=== PATIENT | female | born 1985 | race Caucasian/White ===

== ENCOUNTER 2019-09-27 08:26 | Emergency (ER) | payer MEDICAID, SELFPAY ==
[2019-09-27 08:28] VITALS: BP 111/88; PULSE 92; RESP 16; TEMP 36.8; O2SAT 100; BMI 27.3
[2019-09-27 08:45] VITALS: PULSE 86; RESP 16; O2SAT 99
--- NOTE | 2019-09-27 08:45 | XR_ITS ---
WS: [id number] RIGHT ANKLE: 3 VIEW(S) TECHNIQUE: AP, oblique(s) and lateral. HISTORY: medial aspect pain COMPARISON: None available. Normal anatomic alignment with no fracture or dislocation. No joint effusion or widening of the ankle mortise. No significant degenerative changes at the joint spaces. No soft tissue abnormality. XR/XR ankle RT min 3V* [id number] IMPRESSION: Normal RIGHT ankle.
--- NOTE | 2019-09-27 08:45 | ED_ITS ---
HPI - Extremity Problem General: Chief complaint: Extremity Problem,Nontraumatic Stated complaint: Right leg pain Time Seen by Provider: 09/27/19 08:40 History of Present Illness: HPI Narrative: Patient complains about right ankle pain for the last 3 days. Patient does walk on a treadmill. Patient denies any injury that she is aware of. Does complain about pain in her right leg from the calf up to the mid thigh at times. Does complain of some swelling around her right ankle MD Complaint: extremity pain, extremity swelling and joint paint Onset (ago): day(s) (3) Pain Consistency: constant Location: right Severity scale (1-10): 4 Quality: aching Radiation: proximal Exacerbating factors: range of motion, weight bearing, walking and exertion Associated symptoms: Deny chest pain, fever(s) or rash Review of Systems Const: Denies: fever, chills or body aches Eyes: Denies: change in vision or blurry vision ENMT: Denies: throat pain or nasal congestion Card: Denies: chest pain or shortness of breath on exertion Resp: Denies: shortness of breath, productive cough or non-productive cough GI: Denies: abdominal pain, nausea or vomiting Musc: Reports: extremity pain, extremity swelling and joint pain Skin/Breast: Denies: rash Neuro: Denies: headache Psych: Denies: anxiety or depression Billy/Lymph: Denies: easy bruising PFSH ED PFSH: Statuses (acute, chronic, etc) shown below reflect problem list status as previously entered and may not be historically accurate Medical History (Updated 09/17/19 @ 15:43 by Lilian Macedo RN) Hypertension (Acute) Patient denies medical problems (Acute) Denies diabetes, asthma, seizures, DVT/PE Surgical History (Updated 09/17/19 @ 16:02 by Lilian Macedo RN) History of delivery (Acute ~06/06/13) delivery at [place] for placental abruption History of cholecystectomy (Acute ~2012) Done at time of exploratory laparoscopy for ruptured gastric ulcer in History of exploratory laparotomy (Acute ~2012) Done for ruptured gastric ulcer - also had a cholecystectomy at the same time Family History (Updated 09/17/19 @ 16:03 by Lilian Macedo RN) Grandfather Diabetes Paternal Mother Hypertension Unknown Patient denies medical problems Denies history of: Breast, cervical, uterine, ovarian, colon cancer, DVT/PE Social History (Updated 09/17/19 @ 16:05 by Lilian Macedo RN) Smoking and tobacco status: current every day smoker cigarettes Packs smoked per day: 0.5 [ Other cigarette details: Started smoking at age 19 ] Alcohol intake: current Female Reproductive History: Date of last menstrual period: 09/06/19 Physical Exam Const: COMMON NORMALS: no apparent distress, average body habitus and oriented x3 HENMT: COMMON NORMALS: normocephalic HEAD & SCALP: normal to inspection and normocephalic FACE & SINUS: normal facial exam Eye: COMMON NORMALS: conjunctivae normal GENERAL EYE: normal appearance of both eyes CONJUNCTIVA: Yes conjunctivae normal Neck/C-Spine: COMMON NORMALS: no JVD Chest: COMMONS NORMALS: inspection of chest normal Resp: COMMON NORMALS: normal respiratory effort and clear to auscultation bilaterally AUSCULTATION: clear to auscultation bilaterally Cardio: COMMON NORMALS: no JVD, regular rate and regular rhythm RATE: regular rate RHYTHM: regular rhythm GI: COMMON NORMALS: normal to inspection, nondistended, normoactive bowel sounds Extremity: COMMON NORMALS: normal to inspection and full ROM RIGHT LOWER EXTREMITY: Yes ankle joint (Tenderness to the right medial aspect of the ankle. Does have mild swelling. Does have good range of motion. No swelling redness erythema up the leg.) Neuro: COMMON NORMALS: oriented x3 Course Vital Signs: Vital signs: Vital Signs Temperature 98.2 F 09/27/19 08:28 Pulse Rate 92 09/27/19 08:28 Respiratory Rate 16 09/27/19 08:28 Blood Pressure 111/88 09/27/19 08:28 Pulse Oximetry 100 09/27/19 08:28 Discharge Plan Discharge Prescriptions: No Action venlafaxine [Effexor XR] 37.5 mg capsule,extended release 24hr 37.5 mg PO QDAY RF: 0 Coding Level of Care Code ED Plunger Machine Operator for Chg Reji
== END 2019-09-27 09:11 | disposition home or self-care (01) ==
PROVIDERS: Emergency Provider Nurse Practitioner Family; Family Provider Family Medicine; PCP Family Medicine
DX: M79.604 Pain in right leg (principal); I10 Essential (primary) hypertension; F17.210 Nicotine dependence, cigarettes, uncomplicated
CPT/HCPCS: 73610; 99281; 99282

== ENCOUNTER → 2019-10-01 15:00 | Outpatient (BNVA) | payer MEDICAID, SELFPAY | PROVIDERS: Family Provider Family Medicine; PCP Family Medicine; Visit Provider Psychiatry & Neurology Psychiatry | DX: F33.2 Major depressive disorder, recurrent severe without psychotic features (principal); F41.1 Generalized anxiety disorder; F15.20 Other stimulant dependence, uncomplicated; F11.20 Opioid dependence, uncomplicated | CPT/HCPCS: 99204 ==

== ENCOUNTER → 2020-02-28 18:25 | Outpatient (BNVA) | payer MEDICAID, SELFPAY | PROVIDERS: Family Provider Family Medicine; PCP Family Medicine; Visit Provider Nurse Practitioner Family | DX: J06.9 Acute upper respiratory infection, unspecified (principal); Z68.27 Body mass index [BMI] 27.0-27.9, adult; F17.210 Nicotine dependence, cigarettes, uncomplicated; Z71.89 Other specified counseling | CPT/HCPCS: 87071; 87880 ==

== ENCOUNTER 2020-05-02 08:57 | Emergency (ER) | payer MEDICAID, SELFPAY ==
[2020-05-02 09:00] VITALS: BP 123/85; PULSE 85; RESP 18; TEMP 36.9; O2SAT 96; BMI 28.3
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
[2020-05-02 09:39] LABS: HCG Qualitative Urine. Negative (Negative)
[2020-05-02 09:53] LABS: Basophils # 0.1 10^3/uL (0.0-0.1); Basophils % 1.3 %; Eosinophils # 0.4 10^3/uL (0.0-0.8); Eosinophils % 3.9 %; Hematocrit 39.2 % (37.0-47.0); Lymphocytes # 2.2 10^3/uL (0.8-4.8); Mean Corpuscular HGB Conc 33.2 g/dL (30.0-36.0); Mean Corpuscular Volume 90.3 fL (81-99); Mean Platelet Volume 9.1 fL (7.4-10.4); Monocytes # 0.8 10^3/uL (0.2-0.9); Monocytes % 8.6 %; Neutrophils # 5.76 10^3/uL (1.8-7.7); Neutrophils % 61.9 %; Nucleated Red Blood Cells % 0 %; Platelet Count 345 10^3/cmm (130-400); Red Blood Count 4.34 10^6/uL (4.1-5.3); White Blood Count 9.3 10^3/uL (4.0-10.0)
[2020-05-02 09:58] LABS: Add Urine Microscopic? YES; Bilirubin Urine Neg (Negative); Blood Urine Neg (Negative); Glucose Urine UA Norm (Normal); Ketones Urine Negative (Negative); Leukocyte Esterase Urine 2+ (Negative); Nitrate Urine Negative (Negative); Protein Urine Neg (Negative); Specific Gravity, Urine 1.015 (1.005-1.030); Urine Appearance SL Hazy (CLEAR); Urine Color Yellow (Yellow); Urobilinogen Urine Norm (Negative)
[2020-05-02 10:06] LABS: Add Urine Culture? No; Bacteria Urine 2+ /hpf; Mucus Urine 1+ /hpf; RBC Urine 0-4 /hpf (0-2); Squamous Epithelial Cell Urine 15-25 /hpf (0-5); WBC Urine 25-40 /hpf (0-5)
[2020-05-02 10:07] LABS: Amphetamines Screen Urine Negative (Negative); Barbiturates Screen Urine Negative (Negative); Benzodiazepines Screen Urine Positive (Negative); Cocaine Screen Urine Negative (Negative); Opiate Screen Urine Negative (Negative); PCP Screen Urine Negative (Negative); THC Screen Urine Negative (Negative)
[2020-05-02 10:13] LABS: Alanine Aminotransferase 14 U/L (0-33); Albumin Level 3.7 g/dL (3.5-5.2); Alkaline Phosphatase 69 IU/L (35-105); Anion Gap 11.9 (5-19); Aspartate Amino Transferase 8 U/L (0-32); Blood Urea Nitrogen 12 mg/dL (6-20); Calcium 9.5 mg/dL (8.5-10.5); Carbon Dioxide 25 mmol/L (22-29); Chloride 106 mmol/L (98-107); Creatinine Clr Calc Pharmacy 88.2588; Globulin 3.1 g/dL (1.3-4.6); Glomerular Filtration Rate 82.6 mL/min (90-130); Glucose 106 mg/dL (65-115); Osmolality Calculated 285 mOsm/kg (285-295); Potassium 3.9 mmol/L (3.5-5.1); Sodium 139 mmol/L (136-145); Total Bilirubin 0.2 mg/dL (0.15-1.2); Total Protein 6.8 g/dL (6.6-8.7)
[2020-05-02 10:14] LABS: Acetaminophen < 5.0 ug/mL (10-30); Alcohol Level < 10 mg/dL (0-10); Salicylate < 0.3 mg/dL (3-10)
[2020-05-02 12:00] VITALS: BP 130/87; PULSE 71; RESP 18; TEMP 36.6; O2SAT 99
[2020-05-02 12:07] VITALS: BP 130/87; PULSE 71; RESP 18; TEMP 36.6; O2SAT 99
== END 2020-05-02 12:07 | disposition home or self-care (01) ==
PROVIDERS: Emergency Provider Family Medicine; PCP Family Medicine
DX: F32.9 Major depressive disorder, single episode, unspecified (principal); F31.9 Bipolar disorder, unspecified; I10 Essential (primary) hypertension; F17.210 Nicotine dependence, cigarettes, uncomplicated
CPT/HCPCS: 12345; 36415; 80053; 80306; 80307; 81001; 81025; 85025; 99284

== ENCOUNTER 2020-07-28 07:35 | Emergency (ER) | payer MEDICAID, SELFPAY ==
[2020-07-28 07:38] VITALS: BP 156/107; PULSE 98; RESP 17; TEMP 36.8; O2SAT 100; BMI 28.3
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
[2020-07-28 08:25] LABS: Add Urine Culture? No; Add Urine Microscopic? YES; Bacteria Urine 2+ /hpf; Bilirubin Urine Neg (Negative); Blood Urine Trace (Negative); Glucose Urine UA Norm (Normal); Ketones Urine Negative (Negative); Leukocyte Esterase Urine 2+ (Negative); Mucus Urine 1+ /hpf; Nitrate Urine Negative (Negative); Protein Urine Neg (Negative); Specific Gravity, Urine 1.015 (1.005-1.030); Squamous Epithelial Cell Urine 25-40 /hpf (0-5); Urine Appearance Cloudy (CLEAR); Urine Color Yellow (Yellow); Urobilinogen Urine Norm (Negative); WBC Urine 25-40 /hpf (0-5)
[2020-07-28 08:29] LABS: Alanine Aminotransferase 14 U/L (0-33); Alkaline Phosphatase 94 IU/L (35-105); Anion Gap 12.9 (5-19); Aspartate Amino Transferase 7 U/L (0-32); Blood Urea Nitrogen 19 mg/dL (6-20); Calcium 10.1 mg/dL (8.5-10.5); Carbon Dioxide 29 mmol/L (22-29); Chloride 102 mmol/L (98-107); Globulin 3.4 g/dL (1.3-4.6); Glomerular Filtration Rate 82.1 mL/min (90-130); Glucose 73 mg/dL (65-115); Osmolality Calculated 291 mOsm/kg (285-295); Potassium 3.9 mmol/L (3.5-5.1); Sodium 140 mmol/L (136-145); Total Bilirubin 0.2 mg/dL (0.15-1.2); Total Protein 7.4 g/dL (6.6-8.7)
[2020-07-28 08:56] LABS: Basophils # 0.1 10^3/uL (0.0-0.1); Basophils % 1.2 %; Eosinophils # 0.5 10^3/uL (0.0-0.8); Eosinophils % 5.1 %; Hematocrit 41.5 % (37.0-47.0); Hemoglobin 13.4 g/dL (11.5-15.3); Lymphocytes # 2.9 10^3/uL (0.8-4.8); Lymphocytes % 29.8 %; Mean Corpuscular HGB Conc 32.3 g/dL (30.0-36.0); Mean Corpuscular Hemoglobin 29.8 pg (28.0-34.0); Mean Corpuscular Volume 92.2 fL (81-99); Mean Platelet Volume 9.2 fL (7.4-10.4); Monocytes # 0.9 10^3/uL (0.2-0.9); Monocytes % 9.5 %; Neutrophils # 5.25 10^3/uL (1.8-7.7); Nucleated Red Blood Cells % 0 %; Platelet Count 422 10^3/cmm (130-400); White Blood Count 9.7 10^3/uL (4.0-10.0)
[2020-07-28] MEDS: tetanus-dipt-pertussis 0.5 mL SDV IM (08:59)
[2020-07-28 09:10] VITALS: BP 148/95; PULSE 84; RESP 16; O2SAT 99
--- NOTE | 2020-07-28 10:41 | DCPLANNER ---
accredited farm manager had message to schedule a follow up appointment for patient with ENT. accredited farm manager emailed Erlinda at [facility] General Surgery patients information. Patients information will be printed and reviewed. Clinic will call patient with appointment information.
--- NOTE | 2020-08-01 11:19 | DCPLANNER ---
manager call center was contacted by [facility] General Surgery stating that clinic tried to call patient several times was unable to speak with patient and left voicemails were left for patient to return clinic phone calls. manager call center called phone numbers [phone] and [phone] got a recording that stated phone number can not be completed at this time. Unable to speak with patient and unable to leave a voicemail for patient.
== END 2020-07-28 09:11 | disposition home or self-care (01) ==
PROVIDERS: Emergency Provider Family Medicine; PCP Family Medicine
DX: S00.81XA Abrasion of other part of head, initial encounter (principal); H72.91 Unspecified perforation of tympanic membrane, right ear; I10 Essential (primary) hypertension; F17.210 Nicotine dependence, cigarettes, uncomplicated; Y04.2XXA Assault by strike against or bumped into by another person, initial encounter; Z23 Encounter for immunization
CPT/HCPCS: 12345; 70450; 80053; 81001; 85025; 90471; 90715; 99281; 99283

== ENCOUNTER → 2020-09-14 15:00 | Outpatient (BNVA) | payer MEDICAID, SELFPAY | PROVIDERS: PCP Family Medicine; Visit Provider Nurse Practitioner Women's Health | DX: Z01.411 Encounter for gynecological examination (general) (routine) with abnormal findings (principal) | CPT/HCPCS: 84702; 87491; 87591; 87661; 88175 ==

== ENCOUNTER 2020-11-13 21:39 | Inpatient (IN) | payer MEDICAID, SELFPAY ==
[2020-11-13 21:40] VITALS: BP 112/77; PULSE 79; RESP 18; TEMP 36.4; O2SAT 97; BMI 28.9
--- NOTE | 2020-11-13 21:50 | ED_ITS ---
HPI - Psych General: Chief Complaint: Psychiatric Symptoms Stated Complaint: SI Time Seen by Provider: 11/13/20 21:43 Source: patient and EMS Mode of arrival: EMS Limitations: altered mental status History of Present Illness: HPI Narrative: 35-year-old female that today texted friends that she was going to come to [place] and kill herself shooting herself with a gun. Patient was found intoxicated with Xanax and a gun in position. Last seen she was and was given Haldol on the way here. Patient did have a gun in her possession. Here she is sedated from Haldol and no h istory is available from her at this point. She does have a history of psychiatric illness and depression. Associated symptoms: Reports depression and suicidal ideation Review of Systems General: Reports: ROS unobtainable due to mental status Psych: Reports: depression and suicidal ideation [facility] ED PFS: Medical History (Updated 11/13/20 @ 22:42 by Shlomo Marin MD) Bartholin's gland abscess (~2018) Generalized anxiety disorder Hypertension Major depressive disorder, recurrent severe without psychotic features Opioid dependence, uncomplicated Other stimulant dependence, uncomplicated Patient denies medical problems Denies diabetes, asthma, seizures, DVT/PE Surgical History History of delivery (~06/06/13) delivery at [place] for placental abruption History of cholecystectomy (~2012) Done at time of exploratory laparoscopy for ruptured gastric ulcer in History of exploratory laparotomy (~2012) Done for ruptured gastric ulcer - also had a cholecystectomy at the same time Family History Grandfather Diabetes Paternal Mother Hypertension Heart disease Unknown No problems noted. Denies family history of Colon cancer Ovarian cancer Hypercholesteremia Breast cancer Uterine cancer Stroke Female Reproductive History: Date of last menstrual period: 04/18/20 Physical Exam Const: COMMON NORMALS: negative for patient oriented x3 EXAM LIMITATIONS: altered mental status GENERAL APPEARANCE: disheveled HENMT: COMMON NORMALS: normocephalic and atraumatic HEAD & SCALP: normocephalic and atraumatic Eye: COMMON NORMALS: Equal, round and reactive pupils present and EOMs intact bilaterally PUPIL: Yes Equal, round and reactive pupils present Neck/C-Spine: COMMON NORMALS: full ROM and supple Chest: COMMONS NORMALS: normal inspection of the chest and normal palpation of entire chest wall Resp: COMMON NORMALS: normal respiratory effort, No retractions, No use of accessory muscles and clear to auscultation bilaterally AUSCULTATION: clear to auscultation bilaterally Cardio: COMMON NORMALS: regular rate, regular rhythm and No murmurs present (Cardio) RATE: regular rate RHYTHM: regular rhythm GI: COMMON NORMALS: Normal to inspection, nondistended, normoactive bowel sounds present, Soft to palpation, non-tender and no masses PALPATION: Yes Soft to palpation Extremity: COMMON NORMALS: normal to inspection and full ROM Neuro: COMMON NORMALS: moves all extremities; negative for patient oriented x3 Psych: THOUGHT CONTENT: Yes Suicidality present Skin: COMMON NORMALS: no rashes or lesions noted and no wounds GENERAL SKIN EXAM: no rashes or lesions noted MDM - Psych MDM Narrative: Medical decision making narrative: Patient presents for suicidal ideation along with alcohol intoxication. Patient is medically cleared and spoke to Dr. Gordillo and will admit. Patient placed under 96-hour hold. Lab Data: Labs: Lab Results 11/13/20 11/13/20 Range/Units 22:05 22:05 WBC 8.3 (4.0-10.0) 10^3/ uL RBC 4.50 (4.1-5.3) 10^6/u L Hgb 13.0 (11.5-15.3) g/dL Hct 39.5 (37.0-47.0) % MCV 87.8 (81-99) fL MCH 28.9 (28.0-34.0) pg MCHC 32.9 (30.0-36.0) g/dL RDW 14.5 (12.1-15.1) % Plt Count 392 (130-400) 10^3/c mm MPV 9.2 (7.4-10.4) fL Neut % (Auto) 50.3 % Lymph % (Auto) 37.8 % [place] % (Auto) 8.2 % Eos % (Auto) 2.3 % Baso % (Auto) 1.0 % Neut # (Auto) 4.17 (1.8-7.7) 10^3/u L Lymph # (Auto) 3.1 (0.8-4.8) 10^3/u L [place] # (Auto) 0.7 (0.2-0.9) 10^3/u L Eos # (Auto) 0.2 (0.0-0.8) 10^3/u L Baso # (Auto) 0.1 (0.0-0.1) 10^3/u L Nucleated RBC % (a uto) 0 % Nucleated RBCs # 0.0 /100WBC Sodium 142 (136-145) mmol/L Potassium 3.5 (3.5-5.1) mmol/L Chloride 112 H (98-107) mmol/L Carbon Dioxide 21 L (22-29) mmol/L Anion Gap 12.5 (5-19) BUN 8 (6-20) mg/dL Creatinine 0.6 (0.5-0.9) mg/dL GFR Calculation 114.4 (90-130) mL/min Glucose 85 (65-115) mg/dL Calculated Osmolal ity 292 (285-295) mOsm/k g Calcium 8.0 L (8.5-10.5) mg/dL Total Bilirubin 0.2 (0.15-1.2) mg/dL AST 37 H (0-32) U/L ALT 155 H (0-33) U/L Alkaline Phosphata se 75 (35-105) IU/L Total Protein 7.0 (6.6-8.7) g/dL Albumin 3.6 (3.5-5.2) g/dL Globulin 3.4 (1.3-4.6) g/dL Salicylates < 0.3 L (3-10) mg/dL Acetaminophen < 5.0 L (10-30) ug/mL Ethyl Alcohol 161 H (0-10) mg/dL Discharge Plan Discharge Patient Disposition: Admitted As Inpatient Clinical Impression: Suicidal ideation Condition: Stable Coding Level of Care Code ED Injection Molding Machine Setter for Fawn Fwsonali Exam Comprehensive
[2020-11-13 22:14] LABS: Basophils # 0.1 10^3/uL (0.0-0.1); Eosinophils # 0.2 10^3/uL (0.0-0.8); Eosinophils % 2.3 %; Hematocrit 39.5 % (37.0-47.0); Lymphocytes # 3.1 10^3/uL (0.8-4.8); Lymphocytes % 37.8 %; Mean Corpuscular HGB Conc 32.9 g/dL (30.0-36.0); Mean Corpuscular Hemoglobin 28.9 pg (28.0-34.0); Mean Corpuscular Volume 87.8 fL (81-99); Mean Platelet Volume 9.2 fL (7.4-10.4); Monocytes # 0.7 10^3/uL (0.2-0.9); Monocytes % 8.2 %; Neutrophils # 4.17 10^3/uL (1.8-7.7); Neutrophils % 50.3 %; Nucleated Red Blood Cells % 0 %; Platelet Count 392 10^3/cmm (130-400); Red Cell Distribution Width 14.5 % (12.1-15.1); White Blood Count 8.3 10^3/uL (4.0-10.0)
[2020-11-13 22:16] VITALS: BP 155/104; PULSE 82; RESP 16; O2SAT 96
[2020-11-13 22:27] LABS: Albumin Level 3.6 g/dL (3.5-5.2); Alcohol Level 161 mg/dL (0-10); Alkaline Phosphatase 75 IU/L (35-105); Blood Urea Nitrogen 8 mg/dL (6-20); Carbon Dioxide 21 mmol/L (22-29); Chloride 112 mmol/L (98-107); Globulin 3.4 g/dL (1.3-4.6); Glomerular Filtration Rate 114.4 mL/min (90-130); Glucose 85 mg/dL (65-115); Osmolality Calculated 292 mOsm/kg (285-295); Sodium 142 mmol/L (136-145); Total Bilirubin 0.2 mg/dL (0.15-1.2)
[2020-11-13 22:30] LABS: Acetaminophen < 5.0 ug/mL (10-30); Salicylate < 0.3 mg/dL (3-10)
[2020-11-13 22:31] LABS: Alanine Aminotransferase 155 U/L (0-33); Anion Gap 12.5 (5-19); Aspartate Amino Transferase 37 U/L (0-32); Potassium 3.5 mmol/L (3.5-5.1)
[2020-11-13 23:25] VITALS: BP 143/104; PULSE 76; RESP 16; TEMP 36.6; O2SAT 96
[2020-11-13 23:25] LABS: Alcohol Level 160 mg/dL (0-10)
[2020-11-13 23:39] VITALS: RESP 16; TEMP 37.2
--- NOTE | 2020-11-14 03:04 | PC.NURSE ---
Involuntary admission from the ED. Transported to the ED by police. Patient had texted a friend she was going to kill herself. Drank whiskey, took Xanax, obtained a handgun. [place]. Was combative with police and EMS. Was given Haldol by EMS. Sedated upon arrival to NPU. Curled into position. Would not cooperate with vital signs or other care. Needs admit assessments completed.
--- NOTE | 2020-11-14 04:16 | PC.NURSE ---
Skin assessment revealed no wounds or injuries. The patient has acne across her upper back.
[2020-11-14 06:00] VITALS: BP 136/89; PULSE 80; RESP 16; TEMP 37.6; O2SAT 98
--- NOTE | 2020-11-14 11:30 | P.HP_ITS ---
Providers/Chief Complaint Admitting Physician: Bennett Gordillo MD Primary Care Provider: Nitza Phoenix DO Chief Complaint: SI HPI NPU History of Present Illness Clarissa Correa is a 35 year old female who presented to the emergency department following report: Chief Complaint: Psychiatric Symptoms Stated Complaint: SI Time Seen by Provider: 11/13/20 21:43 Source: patient and EMS Mode of arrival: EMS Limitations: altered mental status History of Present Illness: HPI Narrative: 35-year-old female that today texted friends that she was going to come to [place] and kill herself shooting herself with a gun. Patient was found intoxicated with Xanax and a gun in position. Last seen she was and was given Haldol on the way here. Patient did have a gun in her possession. Here she is sedated from Haldol and no history is available from her at this point. She does have a history of psychiatric illness and depression. Associated symptoms: Reports depression and suicidal ideation. She was admitted to the neuropsychiatric unit for definitive treatment of those issues. This morning she presents reporting never been in a psychiatric hospital but that she has had therapy a long time ago and that she currently is on medications through Dr. Phoenix and Francoise Adams. She is reportedly on Paxil, Xanax and Wellbutrin and reports that the medication doses are fine. She smokes a half a grams a day, reports getting alcohol occasionally, denies marijuana but was evasive in discussions about cocaine, methamphetamine or other illicit drugs eventually reporting that she does methamphetamine from time to time. She reports being in a rehab about three times and having one DUI. She reports that what got her in this situation is that her ex did not go to court. Due to him failing to go to court he is now in long-term which made her feel suicidal each. She reports that she got a gun and she got very evasive about exactly what happened but she is on a 96-hour hold secondary to concerns for safety. She agreed to talk to the social professionals and explore different options for sober living treatment but she seems somewhat ambivalent during the time of our conversation. Psychiatric history: As above. Substance abuse history: As above. Family history: She endorses mental health and addiction issues on both sides of her family but denied any suicide attempts or completions on either side. Developmental history: There were no problems with the , or delivery, learned to walk and talk and met developmental milestones on time, and denies need for speech therapy, learning support, emotional support or special education classes. Psychosocial history: Reports her mother and father were together when she was born and remain together. She endorses that she has three sisters and one brother from that [employer] and she is the oldest of the five. She endorses that her childhood was fine and she denied any emotional, physical or sexual abuse. She endorses that she graduated from high school and did get an associates degree from college. She endorses being a heterosexual and her longest relationship was 12 years. She been one time and denies having an official divorce but they are . She has three children; a thirteen avoid a and two girls ages eleven and seven. She never been in the and denies any hinduism [employer] system. Her longest job was 6 years [employer] and she endorses living in a trailer with her three kids and her cousin's girlfriend and her girlfriend's cousin's children. Legal history: She endorses being in [facility] once maybe twice but never for longer than a couple of hours. Medical history: Please see ED note for full details but she denies any significant history. Meds NPU Home Medications Medication Instructions Recorded Confirmed Last Taken Type bupropion HCl 150 mg 24 hr tablet, 150 mg PO QAM #30 tab 10/29/19 11/14/20 05/01/20 Rx extended release alprazolam 0.5 mg PO BID PRN 05/02/20 11/14/20 05/01/20 History paroxetine HCl 10 mg PO DAILY 11/14/20 11/14/20 Unknown History Allergies Allergy/AdvReac Type Severity Reaction Status Date / Time No Known Allergies Allergy Verified 09/14/20 14:24 PFS NPU PFSH: Medical History (Updated 11/14/20 @ 12:01 by Bennett Gordillo MD) Bartholin's gland abscess (~2018) Generalized anxiety disorder Hypertension Major depressive disorder, recurrent severe without psychotic features Opioid dependence, uncomplicated Other stimulant dependence, uncomplicated Patient denies medical problems Denies diabetes, asthma, seizures, DVT/PE Surgical History History of delivery (~06/06/13) delivery at [place] for placental abruption History of cholecystectomy (~2012) Done at time of exploratory laparoscopy for ruptured gastric ulcer in History of exploratory laparotomy (~2012) Done for ruptured gastric ulcer - also had a cholecystectomy at the same time Family History Grandfather Diabetes Paternal Mother Hypertension Heart disease Unknown No problems noted. Denies family history of Colon cancer Ovarian cancer Hypercholesteremia Breast cancer Uterine cancer Stroke Mental Status Exam MSE Comments: This is an overweight versus obese white female in hospital scrubs with limited grooming and eye contact. No abnormal movements except for psychomotor retardation. Semicooperative with exam in mild to moderate distress. Speech was limited and decreased rate and volume. Mood described as tired affect irritable. Thought process organized. Thought content: Patient denied suicidal or homicidal ideations, there were no delusions reported or noted, she denied any auditory visual hallucinations. Concentration were impaired and memory was limited but none were formally tested. She alert and oriented x3. Insight judgment are impaired and impulse control is impaired. Vitals/I&O/Wt Last Vital Signs Temp 99.6 F 11/14/20 06:00 Pulse 80 11/14/20 06:00 Resp 16 11/14/20 06:00 BP 136/89 11/14/20 06:00 Pulse Ox 98 11/14/20 06:00 Weight last 48 hrs Weight 69.4 kg Data NPU : 11/13/20 22:05 11/13/20 22:05 A&P Assessment and plan (1) Suicidal ideation: Status: Acute (2) Chlamydia: Status: Acute (3) Other stimulant dependence, uncomplicated: Status: Acute (4) Opioid dependence, uncomplicated: Status: Acute (5) Major depressive disorder, recurrent severe without psychotic features: Status: Acute (6) Generalized anxiety disorder: Status: Acute (7) Methamphetamine use: Status: Acute (8) Withdrawal from methamphetamine: Status: Acute (9) Partner relational problem: Status: Acute Additional A&P Information This is a 35-year-old white female with a long history of mental health and addiction issues who presents after she reports she started having difficulties with the recent imprisonment of her ex and reportedly ended up depressed with a gun and actively using drugs including alcohol. 1. Continue current medication. We will continue to review whether an increase in the Paxil or Wellbutrin would be appropriate. 2. Continue every 15 minute checks for safety. 3. Encourage individual, group and milieu therapies. 4. Encourage sober living treatment after discharge at the highest level of care to which he is willing to commit. Involuntary Hold Information 96 Hour Hold: 96 Hour Involuntary Admission: Yes 96 Hour Hold Ending Date: 11/17/20 96 Hour Hold Ending Time: 21:57 Attestations NPU 2 Medical Necessity Statement*: Inpatient hospitalization is medically necessary and the clinically appropriate intervention at this time. We will monitor medic ations and make changes as indicated. Patient will be in the hospital for over two midnights. Likely length of stay 3 to 5 days. Coding Level of Care Code Acute Bilingual Patient Support Caseworker for Fawn Fwd Diagnoses Suicidal ideation R45.851 Chlamydia A74.9 Other stimulant dependence, uncomplicated F15.20 Opioid dependence, uncomplicated F11.20 Major depressive disorder, recurrent severe without psychotic features F33.2 Generalized anxiety disorder F41.1 Methamphetamine use F15.10 Withdrawal from methamphetamine F15.23 Partner relational problem Z63.0
[2020-11-14 12:06] LABS: HCG Qualitative Urine. Negative (Negative)
[2020-11-14] MEDS: doxepin 50 mg Capsule PO (21:09)
[2020-11-14 21:13] VITALS: BP 121/82; PULSE 86; RESP 18; TEMP 37.2; O2SAT 98
--- NOTE | 2020-11-15 04:30 | PC.NURSE ---
PM ASSESSMENT PT WANTS TO BE LEFT ALONE, SHE IS RESTING, HEART/LUNG SOUNDS WNL, DENIES PAIN, DENIES SI/HI/AH/VH. WILL CONTINUE TO OBSERVE.
[2020-11-15] MEDS: buPROPion XL (24 HR) 150 mg Tablet PO (05:44)
[2020-11-15 06:00] VITALS: BP 108/72; PULSE 71; RESP 16; TEMP 36.2; O2SAT 97
[2020-11-15] MEDS: multivitamin therapeutic Tablet 1 TAB PO (08:46)
[2020-11-15] MEDS: folic acid 1 mg Tablet PO (08:47)
[2020-11-15] MEDS: PARoxetine 20 mg Tablet 10 MG PO (08:47)
[2020-11-15] MEDS: thiamine 100 mg Tablet PO (08:47)
[2020-11-15] MEDS: hyDROXYzine 25 mg Capsule 50 MG PO (13:27)
--- NOTE | 2020-11-15 13:28 | PC.NURSE ---
Addendum entered by Hui Becerril LPN 11/15/20 18:03: prn med effective no further c/o anxiety at this time Original Note: PRN VISTARIL 50 MG GIVEN PO PER PT C/O STATED ANXIETY. WILL CONT TO MONITOR
[2020-11-15] MEDS: nicotine 21 mg Patch 1 PATCH TRANSDERMA (13:55)
[2020-11-15 14:00] VITALS: BP 116/75; PULSE 76; RESP 20; TEMP 37.4; O2SAT 98
[2020-11-15] MEDS: acetaminophen 325 mg Tablet 650 MG PO (17:10)
--- NOTE | 2020-11-15 17:27 | PM.NPN ---
Subjective NPU Subjective: Interval history: Clarissa presents today being a little more interactive and less irritable with exchanges. She continues to be somewhat ambivalent about what to do next. But she ultimately agreed to exploration of the medications at the current doses. We discussed the risk-benefit and alternatives of increasing the Paxil to 20 mg p.o. every morning and she understood and agreed to proceed as is documented in this note. She also endorsed she might be open to increasing the Wellbutrin XL. We discussed our reticence to make any changes to the Xanax given her situation. Mental Status Exam MSE Comments: This is an overweight versus obese white female in hospital scrubs with limited grooming and eye contact. No abnormal movements except for psychomotor retardation. More cooperative with exam in mild distress. Speech was limited and decreased rate and volume, with some improvement. Mood described as tired affect less irritable. Thought process organized. Thought content: Patient denied suicidal or homicidal ideations, there were no delusions reported or noted, she denied any auditory or visual hallucinations. Attention and concentration were impaired, but improving and memory was limited but none were formally tested. She alert and oriented x3. Insight judgment are impaired, but improving and impulse control is impaired. Vitals/I&O/Wt Last Vital Signs Temp 98.6 F 11/15/20 22:00 Pulse 74 11/15/20 22:00 Resp 20 H 11/15/20 14:00 BP 134/89 11/15/20 22:00 Pulse Ox 98 11/15/20 14:00 Data NPU : 11/13/20 22:05 11/13/20 22:05 A&P Additional A&P Information (1) Suicidal ideation: (2) Chlamydia: (3) Other stimulant dependence, uncomplicated: (4) Opioid dependence, uncomplicated: (5) Major depressive disorder, recurrent severe without psychotic features: (6) Generalized anxiety disorder: (7) Methamphetamine use: (8) Withdrawal from methamphetamine: (9) Partner relational problem: Additional A&P Information This is a 35-year-old white female with a long history of mental health and addiction issues who presents after she reports she started having difficulties with the recent imprisonment of her ex and reportedly ended up depressed with a gun and actively using drugs including alcohol. 1. Continue current medication. Increase Paxil to 20 mg p.o. every morning 2. Continue every 15 minute checks for safety. 3. Encourage individual, group and milieu therapies. 4. Encourage sober living treatment after discharge at the highest level of care to which she is willing to commit. Involuntary Hold Information 96 Hour Hold: 96 Hour Involuntary Admission: Yes 96 Hour Hold Ending Date: 11/17/20 96 Hour Hold Ending Time: 21:57 Attestations NPU Medical Necessity Statement*: Inpatient hospitalization is medically necessary and the clinically appropriate intervention at this time. We will monitor medications and make changes as indicated. Likely length of stay 2-4 days. Coding Level of Care Code Acute Conditioning Yard Supervisor for Fawn Mendoza
[2020-11-15] MEDS: doxepin 50 mg Capsule PO (20:56)
[2020-11-15 22:00] VITALS: BP 134/89; PULSE 74; TEMP 37
[2020-11-16 05:35] VITALS: BP 124/76; PULSE 73; TEMP 37.5; O2SAT 96
[2020-11-16] MEDS: buPROPion XL (24 HR) 150 mg Tablet PO (06:28)
[2020-11-16] MEDS: PARoxetine 20 mg Tablet PO (08:42)
[2020-11-16] MEDS: multivitamin therapeutic Tablet 1 TAB PO (08:42)
[2020-11-16] MEDS: folic acid 1 mg Tablet PO (08:42)
[2020-11-16] MEDS: thiamine 100 mg Tablet PO (08:42)
[2020-11-16 13:02] VITALS: BP 117/75; PULSE 84; RESP 16; TEMP 37.6; O2SAT 97
[2020-11-16] MEDS: nicotine 21 mg Patch 1 PATCH TRANSDERMA (15:38)
--- NOTE | 2020-11-16 17:42 | PM.NPN ---
Subjective NPU Subjective: Interval history: Clarissa presents today reporting that she is feeling a little bit better and for the first time appearing that this may be the case. She continues to be resistant to significant changes in her outpatient treatment being somewhat ambivalent and seeming in denial of the significance of her situation. We discussed the risk benefits and alternatives of discharging her tomorrow as her 96-hour hold is up and she understood and agreed to proceed as is documented in this note Mental Status Exam MSE Comments: This is an overweight versus obese white female in hospital scrubs with adequate grooming and eye contact. No abnormal movements. Cooperative with exam in no acute distress. Speech was more spontaneous and more normal rate and volume. Mood described as getting better affect congruent. Thought process organized. Thought content: Patient denied suicidal or homicidal ideations, there were no delusions reported or noted, she denied any auditory or visual hallucinations. Attention and concentration were intact, and memory was more reliable but none were formally tested. She alert and oriented x3. Insight judgment are noted but improving, and impulse control is improving. Vitals/I&O/Wt Last Vital Signs Temp 99.5 F 11/16/20 21:35 Pulse 82 11/16/20 21:35 Resp 18 11/16/20 21:35 BP 146/91 11/16/20 21:35 Pulse Ox 95 11/16/20 21:35 Data NPU : 11/13/20 22:05 11/13/20 22:05 A&P Additional A&P Information (1) Suicidal ideation: (2) Chlamydia: (3) Other stimulant dependence, uncomplicated: (4) Opioid dependence, uncomplicated: (5) Major depressive disorder, recurrent severe without psychotic features: (6) Generalized anxiety disorder: (7) Methamphetamine use: (8) Withdrawal from methamphetamine: (9) Partner relational problem: Additional A&P Information This is a 35-year-old white female with a long history of mental health and addiction issues who presents after she reports she started having difficulties with the recent imprisonment of her ex and reportedly ended up depressed with a gun and actively using drugs including alcohol. 1. Continue current medication. 2. Continue every 15 minute checks for safety. 3. Encourage individual, group and milieu therapies. 4. Encourage sober living treatment after discharge at the highest level of care to which she is willing to commit. Involuntary Hold Information 96 Hour Hold: 96 Hour Involuntary Admission: Yes 96 Hour Hold Ending Date: 11/17/20 96 Hour Hold Ending Time: 21:57 Attestations NPU Medical Necessity Statement*: Inpatient hospitalization is medically necessary and the clinically appropriate intervention at this time. We will monitor medications and make changes as indicated. Discharge tomorrow. Coding Level of Care Code Acute Molasses And Caramel Operator for Fawn Mendoza
[2020-11-16 21:35] VITALS: BP 146/91; PULSE 82; RESP 18; TEMP 37.5; O2SAT 95
[2020-11-16] MEDS: hyDROXYzine 25 mg Capsule 50 MG PO (21:40)
[2020-11-16] MEDS: doxepin 50 mg Capsule PO (21:40)
[2020-11-16] MEDS: acetaminophen 325 mg Tablet 650 MG PO (21:41)
--- NOTE | 2020-11-16 21:44 | PC.NURSE ---
Patient requested Visteril 50 mg for anxiety. given.
--- NOTE | 2020-11-16 22:06 | PC.NURSE ---
Patient C/O back pain. Rated pain at a 6/10. 650mg Tylenol given.
[2020-11-17 06:00] VITALS: BP 113/75; PULSE 65; RESP 17; TEMP 36.9; O2SAT 98
[2020-11-17] MEDS: buPROPion XL (24 HR) 150 mg Tablet PO (07:19)
--- NOTE | 2020-11-17 08:20 | P.PN_ITS ---
NPU Therapy Progress Note Therapy Progress Note Date: 11/16/20 Time In: 18:50 Time Out: 19:15 Symptoms Reported: depression Mood: pleasant but guarded and appears sad Progress Note: TURNING SANDER OPERATOR was approached by NPU staff who report Clarissa requested to speak with TURNING SANDER OPERATOR. Clarissa reports ongoing struggle with addiction issues involving meth and alcohol abuse. She vents about relationship issues with her most recent relationship and also her marriage. She is still legally and eludes to much unresolved emotion and pain related to that relationship. She is wanting substance abuse treatment; however, does not present with confidence about obtaining sobriety. She puts her head down and appears to almost be tearful during much of the conversation. When a difficult topic is presented Clarissa is noted to change the subject quickly, normalizing that everyone has is bad or everyone is depressed . She eludes to self guilt and mistakes it seems she has been unable to address. Intervention: TURNING SANDER OPERATOR listened and provided empathy and support. TURNING SANDER OPERATOR and Clarissa discussed her need for substance abuse treatment and expectations of this. TURNING SANDER OPERATOR also encouraged therapy treatment with the right provider as Clarsisa discusses how she had attempted to engage in therapy in the past but didn't feel heard or understood. TURNING SANDER OPERATOR attempted to educate on how important it is that Clarissa a ddress not only the substance abuse addiction, but the cause of what helped to create the addictive behavior in the first place. Clarissa agrees she has much unresolved emotions related to many hurtful events and relationships. Reported Goals Before Discharge: get set up with substance abuse treatment before discharge
[2020-11-17] MEDS: PARoxetine 20 mg Tablet PO (08:49)
[2020-11-17] MEDS: thiamine 100 mg Tablet PO (08:49)
[2020-11-17] MEDS: multivitamin therapeutic Tablet 1 TAB PO (08:49)
[2020-11-17] MEDS: folic acid 1 mg Tablet PO (08:49)
[2020-11-17] MEDS: nicotine 21 mg Patch 1 PATCH TRANSDERMA (10:23)
[2020-11-17] MEDS: acetaminophen 325 mg Tablet 650 MG PO (10:23)
--- NOTE | 2020-11-17 11:50 | PM.NDC ---
Diagnoses at Discharge Discharge Diagnosis (1) Suicidal ideation: Status: Resolved (2) Chlamydia: Status: Resolved (3) Other stimulant dependence, uncomplicated: Status: Acute (4) Opioid dependence, uncomplicated: Status: Acute (5) Major depressive disorder, recurrent severe without psychotic features: Status: Acute (6) Generalized anxiety disorder: Status: Acute (7) Methamphetamine use: Status: Acute (8) Withdrawal from methamphetamine: Status: Resolved (9) Partner relational problem: Status: Acute Reason for Visit Reason for Visit: SI Brief History: History of Present Illness Clarissa Correa is a 35 year old female who presented to the emergency department following report: Chief Complaint: Psychiatric Symptoms Stated Complaint: SI Time Seen by Provider: 11/13/20 21:43 Source: patient and EMS Mode of arrival: EMS Limitations: altered mental status History of Present Illness: HPI Narrative: 35-year-old female that today texted friends that she was going to come to [place] and kill herself shooting herself with a gun. Patient was found intoxicated with Xanax and a gun in position. Last seen she was and was given Haldol on the way here. Patient did have a gun in her possession. Here she is sedated from Haldol and no history is available from her at this point. She does have a history of psychiatric illness and depression. Associated symptoms: Reports depression and suicidal ideation. She was admitted to the neuropsychiatric unit for definitive treatment of those issues. This morning she presents reporting never been in a psychiatric hospital but that she has had therapy a long time ago and that she currently is on medications through Dr. Phoenix and [place]. She is reportedly on Paxil, Xanax and Wellbutrin and reports that the medication doses are fine. She smokes a half a grams a day, reports getting alcohol occasionally, denies marijuana but was evasive in discussions about cocaine, methamphetamine or other illicit drugs eventually reporting that she does methamphetamine from time to time. She reports being in a rehab about three times and having one DUI. She reports that what got her in this situation is that her ex did not go to court. Due to him failing to go to court he is now in custodial which made her feel suicidal each. She reports that she got a gun and she got very evasive about exactly what happened but she is on a 96-hour hold secondary to concerns for safety. She agreed to talk to the social service agency director and explore different options for sober living treatment but she seems somewhat ambivalent during the time of our conversation. Psychiatric history: As above. Substance abuse history: As above. Family history: She endorses mental health and addiction issues on both sides of her family but denied any suicide attempts or completions on either side. Developmental history: There were no problems with the , or delivery, learned to walk and talk and met developmental milestones on time, and denies need for speech therapy, learning support, emotional support or special education classes. Psychosocial history: Reports her mother and father were together when she was born and remain together. She endorses that she has three sisters and one brother from that union and she is the oldest of the five. She endorses that her childhood was fine and she denied any emotional, physical or sexual abuse. She endorses that she graduated from high school and did get an associates degree from college. She endorses being a heterosexual and her longest relationship was 12 years. She been one time and denies having an official divorce but they are . She has three children; a thirteen avoid a and two girls ages eleven and seven. She never been in the and denies any [employer] system. Her longest job was 6 years [employer] and she endorses living in a trailer with her three kids and her cousin's girlfriend and her girlfriend's cousin's children. Legal history: She endorses being in alf once maybe twice but never for longer than a couple of hours. Medical history: Please see ED note for full details but she denies any significant history. Hospital Course Hospital Course Clarissa presented to the emergency department endorsing depression, suicidal ideation and have been found with a gun. She is admitted to the neuropsychiatric unit for definitive treatment of those issues. She had a blood alcohol level 160 upon admission. She slowly acclimated to the individual, group and milieu therapies being fairly isolative and somewhat confused and her initial interactions. We maintained her home medications and increase her Paxil to 20 mg p.o. every morning. She showed a robust response and was able to contract for safety outside the hospital. She did not have access to gun when she was discharged. During the hospitalization, patient had routine laboratory studies which were within normal limits except for few outliers. Additionally there was a general medical evaluation which was also within normal limits and revealed no new acute processes. Discharge Summary: At the time of discharge, she was absent lethality or psychosis. Mood and anxiety were well managed. Patient endorsed a plan to avoid all drugs of abuse and follow-up with the aftercare recommendations of the treatment team. Patient was evaluated and deemed to be absent credible lethality, and had achieved the maximum benefit from an inpatient hospitalization, so was discharged. Involuntary Hold Information 96 Hour Hold: 96 Hour Involuntary Admission: Yes 96 Hour Hold Ending Date: 11/17/20 96 Hour Hold Ending Time: 21:57 Mental Status Exam MSE Comments: This is an overweight versus obese white female in hospital scrubs with adequate grooming and eye contact. No abnormal movements. Cooperative with exam in no acute distress. Speech was more spontaneous and normal rate and volume. Mood described as pretty good, affect congruent. Thought process organized. Thought content: Patient denied suicidal or homicidal ideations, there were no delusions reported or noted, she denied any auditory or visual hallucinations. Attention and concentration were intact, and memory was more reliable but none were formally tested. She alert and oriented x3. Insight judgment are improving, and impulse control is improving. Discharge Data Data Completed and Pending: Pending at discharge Category Date Time Status Drug Screen, Urin e Stat Lab 11/13/20 21:43 Uncollected Vitals: Last Vital Signs Temp 98.5 F 11/17/20 06:00 Pulse 65 11/17/20 06:00 Resp 17 11/17/20 06:00 BP 113/75 11/17/20 06:00 Pulse Ox 98 11/17/20 06:00 Discharge Plan Discharge Patient Disposition: Home Condition: Stable Prescriptions: New paroxetine HCl 20 mg Tablet 20 mg PO DAILY 30 Days Qty: 30 RF: 1 Continued alprazolam 0.5 mg tablet 0.5 mg PO BID PRN (Reason: unknown) 30 Days Qty: 60 RF: 1 Wellbutrin XL 150 mg tablet extended release 24 hr 150 mg PO QAM 30 Days Qty: 30 RF: 1 Discontinued paroxetine HCl 10 mg Tablet 10 mg PO DAILY RF: 0 Discharge Orders: Discharge Order (Routine); Ordered 11/17/20 Ordered By: Bennett Gordillo Referrals: [facility] [Outside] Nitza Phoenix DO [Primary Care Provider] - 11/23/20 4:00 pm Discharge Diet: Regular Discharge Activity: Resume usual activity Patient Instructions: Paroxetine (By mouth) Discharge Attestations NPU Time Spent in Discharge Care*: less than 30 min Specific Discharge Activities: Specific discharge activities: educating patient, discussing with rn case manager/social workers/dc planners, documenting/other paperwork and evaluating patient/reviewing data Coding Level of Care Code Acute Agent Producer for [facility] Fwd Diagnoses Suicidal ideation R45.851 Chlamydia A74.9 Other stimulant dependence, uncomplicated F15.20 Opioid dependence, uncomplicated F11.20 Major depressive disorder, recurrent severe without psychotic features F33.2 Generalized anxiety disorder F41.1 Methamphetamine use F15.10 Withdrawal from methamphetamine F15.23 Partner relational problem Z63.0
[2020-11-17 11:59] VITALS: BP 113/75; PULSE 65; RESP 17; TEMP 36.9; O2SAT 98
== END 2020-11-17 12:55 | disposition home or self-care (01) | DRG 885 ==
LOC: ER 22:42 → NP 22:58
PROVIDERS: Admitting Provider Psychiatry & Neurology Psychiatry; Emergency Provider Emergency Medicine; PCP Family Medicine; Visit Provider Psychiatry & Neurology Psychiatry
DX: F33.2 Major depressive disorder, recurrent severe without psychotic features (principal); R45.851 Suicidal ideations; F15.23 Other stimulant dependence with withdrawal; F11.20 Opioid dependence, uncomplicated; F10.129 Alcohol abuse with intoxication, unspecified; Y90.9 Presence of alcohol in blood, level not specified; F41.1 Generalized anxiety disorder; I10 Essential (primary) hypertension; A74.9 Chlamydial infection, unspecified; Z63.0 Problems in relationship with spouse or partner
CPT/HCPCS: 80053; 80307; 81025; 85025; 99285

== ENCOUNTER 2020-12-19 02:03 | Inpatient (IN) | payer MEDICAID, SELFPAY ==
[2020-12-19] VITALS (11 sets, daily range): BP systolic 103–129; BP diastolic 66–97; PULSE 81–95; RESP 15–24; TEMP 36.4–37; O2SAT 93–99; BMI 29.2
[2020-12-19] MEDS: sodium chloride 0.9% 1,000 ML 999 ML IV (02:47)
[2020-12-19 02:55] LABS: Basophils # 0.1 10^3/uL (0.0-0.1); Basophils % 0.8 %; Eosinophils # 0.1 10^3/uL (0.0-0.8); Eosinophils % 1.1 %; Hematocrit 44.1 % (37.0-47.0); Hemoglobin 14.5 g/dL (11.5-15.3); Lymphocytes # 2.8 10^3/uL (0.8-4.8); Lymphocytes % 22.8 %; Mean Corpuscular HGB Conc 32.9 g/dL (30.0-36.0); Mean Corpuscular Volume 88.2 fL (81-99); Mean Platelet Volume 8.8 fL (7.4-10.4); Monocytes # 0.9 10^3/uL (0.2-0.9); Monocytes % 7.5 %; Neutrophils # 8.18 10^3/uL (1.8-7.7); Neutrophils % 67.1 %; Nucleated Red Blood Cells % 0 %; Platelet Count 400 10^3/cmm (130-400); Red Cell Distribution Width 14.7 % (12.1-15.1); White Blood Count 12.2 10^3/uL (4.0-10.0)
[2020-12-19 03:25] LABS: Alanine Aminotransferase 216 U/L (0-33); Albumin Level 4.2 g/dL (3.5-5.2); Alcohol Level 170 mg/dL (0-10); Alkaline Phosphatase 98 IU/L (35-105); Anion Gap 15.2 (5-19); Aspartate Amino Transferase 43 U/L (0-32); Blood Urea Nitrogen 11 mg/dL (6-20); Calcium 8.5 mg/dL (8.5-10.5); Carbon Dioxide 23 mmol/L (22-29); Chloride 104 mmol/L (98-107); Globulin 3.4 g/dL (1.3-4.6); Glomerular Filtration Rate 82.1 mL/min (90-130); Glucose 80 mg/dL (65-115); Osmolality Calculated 286 mOsm/kg (285-295); Potassium 3.2 mmol/L (3.5-5.1); Sodium 139 mmol/L (136-145); Thyroid Stimulating Hormone 1.03 uIU/mL (0.27-4.20); Total Bilirubin 0.3 mg/dL (0.15-1.2); Total Protein 7.6 g/dL (6.6-8.7)
[2020-12-19 03:30] LABS: Acetaminophen < 5.0 ug/mL (10-30); Salicylate < 0.3 mg/dL (3-10)
--- NOTE | 2020-12-19 04:06 | W.ED.PSYCH ---
HPI - Psych General: Chief Complaint: Psychiatric Symptoms Stated Complaint: ETOH, SI Time Seen by Provider: 12/19/20 02:20 History of Present Illness: HPI Narrative: 35-year-old female brought in by EMS. The patient had been dropped off in front of an acquaintance's house. They called 911. Patient is intoxicated. Information obtained from family members indicates that she has a history of alcohol and methamphetamine abuse. The police questioned her and she stated that she just wanted them to chop her head off. She also asked them if they could get her some heroin. The patient is able to talk but does not answer questions. When I asked her questions she would stop talking. Records indicate that she does have a history of bipolar. MD complaint: suicidal ideation (She wanted to please to chop her head off .) and altered mental status Context: recent alcohol abuse and recent drug abuse Treatments prior to arrival: none and placed on mental health hold (Due to the patient's comments to the police as well as evasiveness with regards to answer my questions we will initiate a 96-hour hold.) Review of Systems General: Reports: ROS unobtainable due to mental status Const: Reports: body aches [facility] ED PFSH: Medical History (Updated 11/18/20 @ 00:00 by ) Bartholin's gland abscess (~2018) Generalized anxiety disorder Hypertension Major depressive disorder, recurrent severe without psychotic features Opioid dependence, uncomplicated Other stimulant dependence, uncomplicated Patient denies medical problems Denies diabetes, asthma, seizures, DVT/PE Surgical History History of delivery (~06/06/13) delivery at [facility] for placental abruption History of cholecystectomy (~2012) Done at time of exploratory laparoscopy for ruptured gastric ulcer in History of exploratory laparotomy (~2012) Done for ruptured gastric ulcer - also had a cholecystectomy at the same time Family History Grandfather Diabetes Paternal Mother Hypertension Heart disease Unknown No problems noted. Denies family history of Colon cancer Ovarian cancer Hypercholesteremia Breast cancer Uterine cancer Stroke Female Reproductive History: Date of last menstrual period: 04/18/20 Physical Exam Const: COMMON NORMALS: no acute distress and well nourished EXAM LIMITATIONS: altered mental status (Intoxicated) HENMT: COMMON NORMALS: normocephalic and atraumatic HEAD & SCALP: normocephalic and atraumatic MOUTH: Normal oral and palatal mucosa present Eye: COMMON NORMALS: Equal, round and reactive pupils present and EOMs intact bilaterally PUPIL: Yes Equal, round and reactive pupils present Neck/C-Spine: COMMON NORMALS: full ROM, no lymphadenopathy, supple, no meningeal signs and no JVD Resp: COMMON NORMALS: normal respiratory effort, No retractions, No use of accessory muscles and clear to auscultation bilaterally EFFORT & INSPECTION: Yes able to speak in complete sentences and Yes symmetric chest movement AUSCULTATION: clear to auscultation bilaterally Cardio: COMMON NORMALS: no JVD, regular rate and regular rhythm RATE: regular rate RHYTHM: regular rhythm GI: COMMON NORMALS: Soft to palpation and non-tender PALPATION: Yes Soft to palpation : COMMON NORMALS: Yes no CVA tenderness BLADDER/KIDNEY EXAM: Yes no CVA tenderness Back/Pelvis: COMMON NORMALS: no CVA tenderness Extremity: COMMON NORMALS: normal to inspection, full ROM and no calf tenderness Neuro: LE COMA SCALE: other COMMON NORMALS: moves all extremities and no focal motor deficits MENINGEAL SIGNS: Yes no meningeal signs OTHER: Patient not cooperative. He does move upper and lower extremities. Psych: COMMON NORMALS: mental status grossly normal, cooperative and speech normal (Patient speech is understandable however she does not answer questions. ) APPEARANCE: Yes unkempt and Yes other (Patient is covered with sand for unknown reason.) ATTITUDE: Yes uncooperative and Yes agitated SPEECH: Yes normal speech (Patient speech is understandable however she does not answer questions. ) Course Vital Signs: Vital signs: Vital Signs Temperature 97.6 F 12/19/20 02:08 Pulse Rate 82 12/19/20 06:15 Respiratory Rate 16 12/19/20 06:15 Blood Pressure 110/80 12/19/20 06:15 Pulse Oximetry 98 12/19/20 06:15 MDM - Psych Lab Data: Labs: Lab Results 12/19/20 12/19/20 12/19/20 Range/Units 02:48 02:48 05:04 WBC 12.2 H (4.0-10.0) 10^3/ uL RBC 5.00 (4.1-5.3) 10^6/u L Hgb 14.5 (11.5-15.3) g/dL Hct 44.1 (37.0-47.0) % MCV 88.2 (81-99) fL MCH 29.0 (28.0-34.0) pg MCHC 32.9 (30.0-36.0) g/dL RDW 14.7 (12.1-15.1) % Plt Count 400 (130-400) 10^3/c mm MPV 8.8 (7.4-10.4) fL Neut % (Auto) 67.1 % Lymph % (Auto) 22.8 % [place] % (Auto) 7.5 % Eos % (Auto) 1.1 % Baso % (Auto) 0.8 % Neut # (Auto) 8.18 H (1.8-7.7) 10^3/u L Lymph # (Auto) 2.8 (0.8-4.8) 10^3/u L [place] # (Auto) 0.9 (0.2-0.9) 10^3/u L Eos # (Auto) 0.1 (0.0-0.8) 10^3/u L Baso # (Auto) 0.1 (0.0-0.1) 10^3/u L Nucleated RBC % (a uto) 0 % Nucleated RBCs # 0.0 /100WBC Sodium 139 (136-145) mmol/L Potassium 3.2 L (3.5-5.1) mmol/L Chloride 104 (98-107) mmol/L Carbon Dioxide 23 (22-29) mmol/L Anion Gap 15.2 (5-19) BUN 11 (6-20) mg/dL Creatinine 0.8 (0.5-0.9) mg/dL GFR Calculation 82.1 L (90-130) mL/min Glucose 80 (65-115) mg/dL Calculated Osmolal ity 286 (285-295) mOsm/k g Calcium 8.5 (8.5-10.5) mg/dL Total Bilirubin 0.3 (0.15-1.2) mg/dL AST 43 H (0-32) U/L ALT 216 H (0-33) U/L Alkaline Phosphata se 98 (35-105) IU/L Total Protein 7.6 (6.6-8.7) g/dL Albumin 4.2 (3.5-5.2) g/dL Globulin 3.4 (1.3-4.6) g/dL TSH 1.03 (0.27-4.20) uIU/ mL HCG, Qual (Negative) Urine Color Dark yellow (Yellow) Urine Appearance Clear (CLEAR) Urine pH 5 (5-7) Ur Specific Gravit y 1.025 (1.005-1.030) Urine Protein Neg (Negative) Urine Glucose (UA) Norm (Normal) Urine Ketones Negative (Negative) Urine Blood Neg (Negative) Urine Nitrate Negative (Negative) Urine Bilirubin 1+ H (Negative) Urine Urobilinogen 1 H (Negative) mg/dL Ur Leukocyte Nena ase Negative (Negative) Salicylates < 0.3 L (3-10) mg/dL Urine Opiates Scre en (Negative) ng/mL Acetaminophen < 5.0 L (10-30) ug/mL Ur Barbiturates Sc reen (Negative) ng/mL Ur Phencyclidine S crn (Negative) ng/mL Ur Amphetamines Sc reen (Negative) ng/mL U Benzodiazepines Scrn (Negative) ng/mL Urine Cocaine Scre en (Negative) ng/mL U Marijuana (THC) Screen (Negative) ng/mL Ethyl Alcohol 170 H (0-10) mg/dL 12/19/20 12/19/20 Range/Units 05:04 05:24 WBC (4.0-10.0) 10^3/ uL RBC (4.1-5.3) 10^6/u L Hgb (11.5-15.3) g/dL Hct (37.0-47.0) % MCV (81-99) fL MCH (28.0-34.0) pg MCHC (30.0-36.0) g/dL RDW (12.1-15.1) % Plt Count (130-400) 10^3/c mm MPV (7.4-10.4) fL Neut % (Auto) % Lymph % (Auto) % [place] % (Auto) % Eos % (Auto) % Baso % (Auto) % Neut # (Auto) (1.8-7.7) 10^3/u L Lymph # (Auto) (0.8-4.8) 10^3/u L [place] # (Auto) (0.2-0.9) 10^3/u L Eos # (Auto) (0.0-0.8) 10^3/u L Baso # (Auto) (0.0-0.1) 10^3/u L Nucleated RBC % (a uto) % Nucleated RBCs # /100WBC Sodium (136-145) mmol/L Potassium (3.5-5.1) mmol/L Chloride (98-107) mmol/L Carbon Dioxide (22-29) mmol/L Anion Gap (5-19) BUN (6-20) mg/dL Creatinine (0.5-0.9) mg/dL GFR Calculation (90-130) mL/min Glucose (65-115) mg/dL Calculated Osmolal ity (285-295) mOsm/k g Calcium (8.5-10.5) mg/dL Total Bilirubin (0.15-1.2) mg/dL AST (0-32) U/L ALT (0-33) U/L Alkaline Phosphata se (35-105) IU/L Total Protein (6.6-8.7) g/dL Albumin (3.5-5.2) g/dL Globulin (1.3-4.6) g/dL TSH (0.27-4.20) uIU/ mL HCG, Qual Negative (Negative) Urine Color (Yellow) Urine Appearance (CLEAR) Urine pH (5-7) Ur Specific Gravit y (1.005-1.030) Urine Protein (Negative) Urine Glucose (UA) (Normal) Urine Ketones (Negative) Urine Blood (Negative) Urine Nitrate (Negative) Urine Bilirubin (Negative) Urine Urobilinogen (Negative) mg/dL Ur Leukocyte Nena ase (Negative) Salicylates (3-10) mg/dL Urine Opiates Scre en Negative (Negative) ng/mL Acetaminophen (10-30) ug/mL Ur Barbiturates Sc reen Negative (Negative) ng/mL Ur Phencyclidine S crn Negative (Negative) ng/mL Ur Amphetamines Sc reen Positive H (Negative) ng/mL U Benzodiazepines Scrn Positive H (Negative) ng/mL Urine Cocaine Scre en Negative (Negative) ng/mL U Marijuana (THC) Screen Positive H (Negative) ng/mL Ethyl Alcohol (0-10) mg/dL Discharge Plan Discharge Prescriptions: No Action paroxetine HCl 20 mg Tablet 20 mg PO DAILY 30 Days Qty: 30 RF: 1 alprazolam 0.5 mg tablet 0.5 mg PO BID PRN (Reason: unknown) 30 Days Qty: 60 RF: 1 Wellbutrin XL 150 mg tablet extended release 24 hr 150 mg PO QAM 30 Days Qty: 30 RF: 1 Coding Level of Care Code ED Software Developer Mid Level for [place] Fwd Exam Comprehensive
[2020-12-19 05:30] LABS: HCG Qualitative Urine. Negative (Negative)
[2020-12-19 05:48] LABS: Add Urine Microscopic? NO; Charge for UA Resulting for Rev
[2020-12-19 05:51] LABS: Specific Gravity, Urine 1.025 (1.005-1.030); Urine Appearance Clear (CLEAR); Urine Color Dark Yellow (Yellow); pH Urine 5 (5-7)
[2020-12-19 05:52] LABS: Bilirubin Urine 1+ (Negative); Blood Urine Neg (Negative); Glucose Urine UA Norm (Normal); Ketones Urine Negative (Negative); Leukocyte Esterase Urine Negative (Negative); Nitrate Urine Negative (Negative); Protein Urine Neg (Negative); Urobilinogen Urine 1 mg/dL (Negative)
[2020-12-19 06:00] LABS: Amphetamines Screen Urine Positive (Negative); Barbiturates Screen Urine Negative (Negative); Benzodiazepines Screen Urine Positive (Negative); Cocaine Screen Urine Negative (Negative); Opiate Screen Urine Negative (Negative); PCP Screen Urine Negative (Negative); THC Screen Urine Positive (Negative)
[2020-12-19] MEDS: potassium chloride ER 20 mEq Tablet 40 MEQ PO (06:16)
[2020-12-19 06:27] LABS: Magnesium 2.2 mg/dL (1.7-2.3)
--- NOTE | 2020-12-19 06:33 | W.ED.PSYCH ---
HPI - Psych General: Chief Complaint: Psychiatric Symptoms Stated Complaint: ETOH, SI Time Seen by Provider: 12/19/20 02:20 History of Present Illness: HPI Narrative: 35-year-old female brought in by EMS. She had been dropped off at a acquaintance home. They called 911. She was subsequently brought here. When talking to the police she requests that they chop my head off . Patient was uncooperative and evasive with her answers. Family states that she has a history of alcohol and methamphetamine abuse. MD complaint: suicidal ideation Onset (ago): unknown Relieving factors: none Context: recent alcohol abuse and recent drug abuse Associated psychiatric symptoms: suicidal ideation Treatments prior to arrival: none and placed on mental health hold (Due to the patient's comments to the police as well as evasiveness with regards to answer my questions we will initiate a 96-hour hold.) Review of Systems General: Reports: ROS unobtainable due to mental status and Other (Patient uncooperative) [facility] ED PFSH: Medical History (Updated 11/18/20 @ 00:00 by ) Bartholin's gland abscess (~2018) Generalized anxiety disorder Hypertension Major depressive disorder, recurrent severe without psychotic features Opioid dependence, uncomplicated Other stimulant dependence, uncomplicated Patient denies medical problems Denies diabetes, asthma, seizures, DVT/PE Surgical History History of delivery (~06/06/13) delivery at [place] for placental abruption History of cholecystectomy (~2012) Done at time of exploratory laparoscopy for ruptured gastric ulcer in History of exploratory laparotomy (~2012) Done for ruptured gastric ulcer - also had a cholecystectomy at the same time Family History Grandfather Diabetes Paternal Mother Hypertension Heart disease Unknown No problems noted. Denies family history of Colon cancer Ovarian cancer Hypercholesteremia Breast cancer Uterine cancer Stroke Female Reproductive History: Date of last menstrual period: 04/18/20 Physical Exam Narrative: EXAM NARRATIVE: Patient moves upper extremities. She will talk to will not follow commands or answer questions Const: COMMON NORMALS: healthy appearing, alert (Patient uncooperative during exam.) and well nourished EXAM LIMITATIONS: altered mental status and other limitations (Patient uncooperative.) GENERAL APPEARANCE: disheveled, appears older than stated age, well hydrated and odor of alcohol detected; not cooperative, not in distress, not anxious and not ill appearing NUTRITIONAL APPEARANCE: obese ORIENTATION/CONSCIOUSNESS: Yes awake and Yes Other orientation findings (Patient uncooperative.) HENMT: COMMON NORMALS: normocephalic, atraumatic and moist oral mucous membranes HEAD & SCALP: normocephalic and atraumatic Eye: COMMON NORMALS: Equal, round and reactive pupils present, EOMs intact bilaterally, conjunctivae normal and no scleral icterus GENERAL EYE: appearance normal, both eyes and all related structures and normal light reflex CONJUNCTIVA: Yes conjunctivae normal PUPIL: Yes Equal, round and reactive pupils present DIRECT OPHTHALMOSCOPY: Yes normal light reflex Neck/C-Spine: COMMON NORMALS: full ROM, no lymphadenopathy, supple, no meningeal signs, no JVD and Thyroid normal GENERAL: Yes normal visual inspection and Yes trachea midline THYROID: Thyroid normal Resp: COMMON NORMALS: normal respiratory effort, No retractions, No use of accessory muscles and clear to auscultation bilaterally EFFORT & INSPECTION: Yes able to speak in complete sentences (Patient evasive when questioned.), Yes symmetric chest movement and No respiratory distress AUSCULTATION: clear to auscultation bilaterally Cardio: COMMON NORMALS: no JVD, regular rate, regular rhythm, No gallops present (Cardio), No clicks present (Cardio), No murmurs present (Cardio) and No rub (Cardio) RATE: regular rate RHYTHM: regular rhythm GI: COMMON NORMALS: Soft to palpation and non-tender PALPATION: Yes Soft to palpation Extremity: COMMON NORMALS: normal to inspection, full ROM, no calf tenderness and no pedal edema Neuro: COMMON NORMALS: moves all extremities and no focal motor deficits SENSORIUM/ORIENTATION: Yes alert (Patient uncooperative during exam.) MENINGEAL SIGNS: Yes no meningeal signs Psych: COMMON NORMALS: speech normal; negative for cooperative and negative for normal affect APPEARANCE: Yes unkempt and Yes disheveled ATTITUDE: Yes uncooperative and Yes evasive ACTIVITY/MOTOR BEHAVIOR: No appropriate eye contact and Yes Avoids eye contact (attititude/behavior) SPEECH: Yes normal speech MOOD & AFFECT: Yes depressed mood Course Vital Signs: Vital signs: Vital Signs Temperature 97.6 F 12/19/20 02:08 Pulse Rate 82 12/19/20 06:15 Respiratory Rate 16 12/19/20 06:15 Blood Pressure 110/80 12/19/20 06:15 Pulse Oximetry 98 12/19/20 06:15 MDM - Psych Lab Data: Labs: Lab Results 12/19/20 12/19/20 12/19/20 Range/Units 02:48 02:48 02:48 WBC 12.2 H (4.0-10.0) 10^3/ uL RBC 5.00 (4.1-5.3) 10^6/u L Hgb 14.5 (11.5-15.3) g/dL Hct 44.1 (37.0-47.0) % MCV 88.2 (81-99) fL MCH 29.0 (28.0-34.0) pg MCHC 32.9 (30.0-36.0) g/dL RDW 14.7 (12.1-15.1) % Plt Count 400 (130-400) 10^3/c mm MPV 8.8 (7.4-10.4) fL Neut % (Auto) 67.1 % Lymph % (Auto) 22.8 % [place] % (Auto) 7.5 % Eos % (Auto) 1.1 % Baso % (Auto) 0.8 % Neut # (Auto) 8.18 H (1.8-7.7) 10^3/u L Lymph # (Auto) 2.8 (0.8-4.8) 10^3/u L [place] # (Auto) 0.9 (0.2-0.9) 10^3/u L Eos # (Auto) 0.1 (0.0-0.8) 10^3/u L Baso # (Auto) 0.1 (0.0-0.1) 10^3/u L Nucleated RBC % (a uto) 0 % Nucleated RBCs # 0.0 /100WBC Sodium 139 (136-145) mmol/L Potassium 3.2 L (3.5-5.1) mmol/L Chloride 104 (98-107) mmol/L Carbon Dioxide 23 (22-29) mmol/L Anion Gap 15.2 (5-19) BUN 11 (6-20) mg/dL Creatinine 0.8 (0.5-0.9) mg/dL GFR Calculation 82.1 L (90-130) mL/min Glucose 80 (65-115) mg/dL Calculated Osmolal ity 286 (285-295) mOsm/k g Calcium 8.5 (8.5-10.5) mg/dL Magnesium 2.2 (1.7-2.3) mg/dL Total Bilirubin 0.3 (0.15-1.2) mg/dL AST 43 H (0-32) U/L ALT 216 H (0-33) U/L Alkaline Phosphata se 98 (35-105) IU/L Total Protein 7.6 (6.6-8.7) g/dL Albumin 4.2 (3.5-5.2) g/dL Globulin 3.4 (1.3-4.6) g/dL TSH 1.03 (0.27-4.20) uIU/ mL HCG, Qual (Negative) Urine Color (Yellow) Urine Appearance (CLEAR) Urine pH (5-7) Ur Specific Gravit y (1.005-1.030) Urine Protein (Negative) Urine Glucose (UA) (Normal) Urine Ketones (Negative) Urine Blood (Negative) Urine Nitrate (Negative) Urine Bilirubin (Negative) Urine Urobilinogen (Negative) mg/dL Ur Leukocyte Nena ase (Negative) Salicylates < 0.3 L (3-10) mg/dL Urine Opiates Scre en (Negative) ng/mL Acetaminophen < 5.0 L (10-30) ug/mL Ur Barbiturates Sc reen (Negative) ng/mL Ur Phencyclidine S crn (Negative) ng/mL Ur Amphetamines Sc reen (Negative) ng/mL U Benzodiazepines Scrn (Negative) ng/mL Urine Cocaine Scre en (Negative) ng/mL U Marijuana (THC) Screen (Negative) ng/mL Ethyl Alcohol 170 H (0-10) mg/dL 12/19/20 12/19/20 12/19/20 Range/Units 05:04 05:04 05:24 WBC (4.0-10.0) 10^3/ uL RBC (4.1-5.3) 10^6/u L Hgb (11.5-15.3) g/dL Hct (37.0-47.0) % MCV (81-99) fL MCH (28.0-34.0) pg MCHC (30.0-36.0) g/dL RDW (12.1-15.1) % Plt Count (130-400) 10^3/c mm MPV (7.4-10.4) fL Neut % (Auto) % Lymph % (Auto) % [place] % (Auto) % Eos % (Auto) % Baso % (Auto) % Neut # (Auto) (1.8-7.7) 10^3/u L Lymph # (Auto) (0.8-4.8) 10^3/u L [place] # (Auto) (0.2-0.9) 10^3/u L Eos # (Auto) (0.0-0.8) 10^3/u L Baso # (Auto) (0.0-0.1) 10^3/u L Nucleated RBC % (a uto) % Nucleated RBCs # /100WBC Sodium (136-145) mmol/L Potassium (3.5-5.1) mmol/L Chloride (98-107) mmol/L Carbon Dioxide (22-29) mmol/L Anion Gap (5-19) BUN (6-20) mg/dL Creatinine (0.5-0.9) mg/dL GFR Calculation (90-130) mL/min Glucose (65-115) mg/dL Calculated Osmolal ity (285-295) mOsm/k g Calcium (8.5-10.5) mg/dL Magnesium (1.7-2.3) mg/dL Total Bilirubin (0.15-1.2) mg/dL AST (0-32) U/L ALT (0-33) U/L Alkaline Phosphata se (35-105) IU/L Total Protein (6.6-8.7) g/dL Albumin (3.5-5.2) g/dL Globulin (1.3-4.6) g/dL TSH (0.27-4.20) uIU/ mL HCG, Qual Negative (Negative) Urine Color Dark yellow (Yellow) Urine Appearance Clear (CLEAR) Urine pH 5 (5-7) Ur Specific Gravit y 1.025 (1.005-1.030) Urine Protein Neg (Negative) Urine Glucose (UA) Norm (Normal) Urine Ketones Negative (Negative) Urine Blood Neg (Negative) Urine Nitrate Negative (Negative) Urine Bilirubin 1+ H (Negative) Urine Urobilinogen 1 H (Negative) mg/dL Ur Leukocyte Nena ase Negative (Negative) Salicylates (3-10) mg/dL Urine Opiates Scre en Negative (Negative) ng/mL Acetaminophen (10-30) ug/mL Ur Barbiturates Sc reen Negative (Negative) ng/mL Ur Phencyclidine S crn Negative (Negative) ng/mL Ur Amphetamines Sc reen Positive H (Negative) ng/mL U Benzodiazepines Scrn Positive H (Negative) ng/mL Urine Cocaine Scre en Negative (Negative) ng/mL U Marijuana (THC) Screen Positive H (Negative) ng/mL Ethyl Alcohol (0-10) mg/dL Discharge Plan Discharge Admit Provider: Bennett Gordillo Coding Level of Care Code ED Special Procedures Technologist for [place] Fwd Exam Comprehensive
[2020-12-19] MEDS: ziprasidone 20 mg/mL SDV IM (08:01)
[2020-12-19] MEDS: LORazepam 2 mg/mL INJ 1 mL IM (08:01)
[2020-12-19] MEDS: water for injection-sterile 10 ML (08:02)
--- NOTE | 2020-12-19 08:03 | PC.NURSE ---
Patient was laying down in bed with the lights off. RN and security entered room, introduced self to patient, notified patient that RN was turning the lights on. RN let patient know that we were going to take her down to another floor, to be evaluated by another provider. Patient immediately became agitated states No, No, No, I'm not fucking staying her, I have done nothing wrong . RN let her know that she was under a 96 hour hold for a statement that was made to police officers. Patient then sat up in bed and stated I'm not fucking staying, I will march my ass right out and then you can call the police so I can go to correction . RN attempted to calm patient by offering food and a drink, and asked if she would like to speak with the provider. RN did give patients some scrub pants as she was only in a gown. Security stepped out of room and patient dressed in her pants. Patient then sat back down in bed. Patient stated No, I want to go fucking home . Dr. Ortiz was notified along with housekeeper cleaning cooking who was in the ER rounding at the time. Dr. Ortiz entered the room, explained to the patient that she was under a 96 hour hold from the provider that had just left the shift. Patient again stated I'm not fucking staying here, I will leave and go to correction . Dr. Ortiz again explained that the police officers would bring her back to the facility due to her 96 hour hold. Patient became quiet for a minute then asked to see her paperwork. Patients rights were brought in to the room and given to her. Patient crumpled the paper up stating I don't want my fucking rights, I want to know why I'm on a hold . Patient's affidavit were provided for her to read. She then became more agitated screaming I'm under a 96 hour hold for this fucking statement, I was drunk . Dr. Ortiz then explained that she could speak with the psychiatric provider when she went down to [facility] to speak about the [address] Ortiz verbalized an order for 10mg of Geodon, and 2 mg Ativan to assist with calming her down, as no other intervention was effective. Patient agreed with IM injection and agreed that it would help her calm down. Patient then stood and sat down in the wheelchair. Patient was then transported down to [facility] via security and housekeeper cleaning cooking.
--- NOTE | 2020-12-19 09:59 | W.ED.PSYCH ---
HPI - Psych General: Chief Complaint: Psychiatric Symptoms Stated Complaint: ETOH, SI Time Seen by Provider: 12/19/20 02:20 History of Present Illness: Relieving factors: none Treatments prior to arrival: none and placed on mental health hold (Due to the patient's comments to the police as well as evasiveness with regards to answer my questions we will initiate a 96-hour hold.) [facility] ED PFSH: Medical History (Updated 11/18/20 @ 00:00 by ) Bartholin's gland abscess (~2018) Generalized anxiety disorder Hypertension Major depressive disorder, recurrent severe without psychotic features Opioid dependence, uncomplicated Other stimulant dependence, uncomplicated Patient denies medical problems Denies diabetes, asthma, seizures, DVT/PE Surgical History History of delivery (~06/06/13) delivery at [place] for placental abruption History of cholecystectomy (~2012) Done at time of exploratory laparoscopy for ruptured gastric ulcer in History of exploratory laparotomy (~2012) Done for ruptured gastric ulcer - also had a cholecystectomy at the same time Family History Grandfather Diabetes Paternal Mother Hypertension Heart disease Unknown No problems noted. Denies family history of Colon cancer Ovarian cancer Hypercholesteremia Breast cancer Uterine cancer Stroke Female Reproductive History: Date of last menstrual period: 04/18/20 Face to Face: Restrn/Seclusion Events leading up to initiation: Verbalizing threat to self or others Evaluation of patient's immediate situation: Alert and oriented and No signs of physical distress Patient reaction since intervention applied: Continued attempts/displays harmful behavior Recent labs reviewed: Yes Review of medications: Yes Patient's current medical/behavioral condition: No new concerns since last ROS Need for restraint or seclusion is: Continued (See addendum note to Dr. Marie's note. Dr. Marie had signed his chart off so initially dictated an addendum immediately after my interaction with Ms. Correa in the ER. This portion of the note completed to meet requirements for all [id number] evaluation.) Attending notified: Yes (Discussed with Dr. Gordillo patient given Geodon to prevent physical confrontation he is in agreement.) Course Vital Signs: Vital signs: Vital Signs Temperature 97.6 F 12/19/20 02:08 Pulse Rate 83 12/19/20 07:11 Respiratory Rate 18 12/19/20 07:11 Blood Pressure 110/76 12/19/20 07:11 Pulse Oximetry 97 12/19/20 07:11 MDM - Psych MDM Narrative: Medical decision making narrative: Multiple attempts were made by myself and the nursing staff to de-escalate the patient she continues to threaten to leave and is aggressive with staff patient given 10 of Geodon to attempt to redirect her behavior. Premedication the [place] we were successful and able to get her transferred to the floor she was not physically restrained. Lab Data: Labs: Lab Results 12/19/20 12/19/20 12/19/20 Range/Units 02:48 02:48 02:48 WBC 12.2 H (4.0-10.0) 10^3/ uL RBC 5.00 (4.1-5.3) 10^6/u L Hgb 14.5 (11.5-15.3) g/dL Hct 44.1 (37.0-47.0) % MCV 88.2 (81-99) fL MCH 29.0 (28.0-34.0) pg MCHC 32.9 (30.0-36.0) g/dL RDW 14.7 (12.1-15.1) % Plt Count 400 (130-400) 10^3/c mm MPV 8.8 (7.4-10.4) fL Neut % (Auto) 67.1 % Lymph % (Auto) 22.8 % [place] % (Auto) 7.5 % Eos % (Auto) 1.1 % Baso % (Auto) 0.8 % Neut # (Auto) 8.18 H (1.8-7.7) 10^3/u L Lymph # (Auto) 2.8 (0.8-4.8) 10^3/u L [place] # (Auto) 0.9 (0.2-0.9) 10^3/u L Eos # (Auto) 0.1 (0.0-0.8) 10^3/u L Baso # (Auto) 0.1 (0.0-0.1) 10^3/u L Nucleated RBC % (a uto) 0 % Nucleated RBCs # 0.0 /100WBC Sodium 139 (136-145) mmol/L Potassium 3.2 L (3.5-5.1) mmol/L Chloride 104 (98-107) mmol/L Carbon Dioxide 23 (22-29) mmol/L Anion Gap 15.2 (5-19) BUN 11 (6-20) mg/dL Creatinine 0.8 (0.5-0.9) mg/dL GFR Calculation 82.1 L (90-130) mL/min Glucose 80 (65-115) mg/dL Calculated Osmolal ity 286 (285-295) mOsm/k g Calcium 8.5 (8.5-10.5) mg/dL Magnesium 2.2 (1.7-2.3) mg/dL Total Bilirubin 0.3 (0.15-1.2) mg/dL AST 43 H (0-32) U/L ALT 216 H (0-33) U/L Alkaline Phosphata se 98 (35-105) IU/L Total Protein 7.6 (6.6-8.7) g/dL Albumin 4.2 (3.5-5.2) g/dL Globulin 3.4 (1.3-4.6) g/dL TSH 1.03 (0.27-4.20) uIU/ mL HCG, Qual (Negative) Urine Color (Yellow) Urine Appearance (CLEAR) Urine pH (5-7) Ur Specific Gravit y (1.005-1.030) Urine Protein (Negative) Urine Glucose (UA) (Normal) Urine Ketones (Negative) Urine Blood (Negative) Urine Nitrate (Negative) Urine Bilirubin (Negative) Urine Urobilinogen (Negative) mg/dL Ur Leukocyte Nena ase (Negative) Salicylates < 0.3 L (3-10) mg/dL Urine Opiates Scre en (Negative) ng/mL Acetaminophen < 5.0 L (10-30) ug/mL Ur Barbiturates Sc reen (Negative) ng/mL Ur Phencyclidine S crn (Negative) ng/mL Ur Amphetamines Sc reen (Negative) ng/mL U Benzodiazepines Scrn (Negative) ng/mL Urine Cocaine Scre en (Negative) ng/mL U Marijuana (THC) Screen (Negative) ng/mL Ethyl Alcohol 170 H (0-10) mg/dL 05/12/0612/19/20 12/19/20 Range/Units 05:04 05:04 05:24 WBC (4.0-10.0) 10^3/ uL RBC (4.1-5.3) 10^6/u L Hgb (11.5-15.3) g/dL Hct (37.0-47.0) % MCV (81-99) fL MCH (28.0-34.0) pg MCHC (30.0-36.0) g/dL RDW (12.1-15.1) % Plt Count (130-400) 10^3/c mm MPV (7.4-10.4) fL Neut % (Auto) % Lymph % (Auto) % [place] % (Auto) % Eos % (Auto) % Baso % (Auto) % Neut # (Auto) (1.8-7.7) 10^3/u L Lymph # (Auto) (0.8-4.8) 10^3/u L [place] # (Auto) (0.2-0.9) 10^3/u L Eos # (Auto) (0.0-0.8) 10^3/u L Baso # (Auto) (0.0-0.1) 10^3/u L Nucleated RBC % (a uto) % Nucleated RBCs # /100WBC Sodium (136-145) mmol/L Potassium (3.5-5.1) mmol/L Chloride (98-107) mmol/L Carbon Dioxide (22-29) mmol/L Anion Gap (5-19) BUN (6-20) mg/dL Creatinine (0.5-0.9) mg/dL GFR Calculation (90-130) mL/min Glucose (65-115) mg/dL Calculated Osmolal ity (285-295) mOsm/k g Calcium (8.5-10.5) mg/dL Magnesium (1.7-2.3) mg/dL Total Bilirubin (0.15-1.2) mg/dL AST (0-32) U/L ALT (0-33) U/L Alkaline Phosphata se (35-105) IU/L Total Protein (6.6-8.7) g/dL Albumin (3.5-5.2) g/dL Globulin (1.3-4.6) g/dL TSH (0.27-4.20) uIU/ mL HCG, Qual Negative (Negative) Urine Color Dark yellow (Yellow) Urine Appearance Clear (CLEAR) Urine pH 5 (5-7) Ur Specific Gravit y 1.025 (1.005-1.030) Urine Protein Neg (Negative) Urine Glucose (UA) Norm (Normal) Urine Ketones Negative (Negative) Urine Blood Neg (Negative) Urine Nitrate Negative (Negative) Urine Bilirubin 1+ H (Negative) Urine Urobilinogen 1 H (Negative) mg/dL Ur Leukocyte Nena ase Negative (Negative) Salicylates (3-10) mg/dL Urine Opiates Scre en Negative (Negative) ng/mL Acetaminophen (10-30) ug/mL Ur Barbiturates Sc reen Negative (Negative) ng/mL Ur Phencyclidine S crn Negative (Negative) ng/mL Ur Amphetamines Sc reen Positive H (Negative) ng/mL U Benzodiazepines Scrn Positive H (Negative) ng/mL Urine Cocaine Scre en Negative (Negative) ng/mL U Marijuana (THC) Screen Positive H (Negative) ng/mL Ethyl Alcohol (0-10) mg/dL Discharge Plan Discharge Patient Disposition: Admitted As Inpatient Admit Provider: Bennett Gordillo Coding Level of Care Code ED Direct Marketing Specialist for [facility]
--- NOTE | 2020-12-19 13:00 | P.HP_ITS ---
Providers/Chief Complaint Admitting Physician: Bennett Gordillo MD Primary Care Provider: Nitza Phoenix DO Chief Complaint: AMS HPI NPU History of Present Illness Clarissa Correa is a 35 year old female who presented to the emergency department with the following report: She has been admitted to the psychiatric unit by Dr. Marie at change of shift she was still in the department. They are about to wheel her down to the neuropsych department patient became threatening and belligerent. She began making threatening comments about leaving harming staff. She states she refused to stay in the neuropsychiatric department. 96-hour hold paperwork is reviewed patient had made comments regarding having her head chopped off while confronting the police. Patient has a long history of substance abuse as well. Because she was combative and refusing we attempted to discuss with her to get her to a agreed to go down to the psychiatric department she refused 10 mg of Geodon was ordered and given to the patient she did agree to take the patient take the medication after we have deescalated with her. At her request we had attempted to show her her 96-hour paperwork. She became angry and crumpled up and threw it away. Patient was given Geodon because is concerned that she would become combative and be potential harm to herself or others. Despite efforts at de-escalation she continues to threaten to leave and takes an aggressive posture towards the staff. Geodon was given in an attempt to help calm her anxiety and aggressive behavior so that we can deal with her more effectively. Ultimately she agreed to take the medication and agreed to go to the psychiatric department after the medication was given and myself Adilene Chambers all worked at de-escalating with her. SCIENCE PROFESSOR who advised the medication given via nursing report. Addendum Dictated By:Darien Ortiz DOAddendum Signed By:Signed Date/Time:12/19/20 0821Addendum Cosigned By: HPI - Psych General: Chief Complaint: Psychiatric Symptoms Stated Complaint: ETOH, SI Time Seen by Provider: 12/19/20 02:20 History of Present Illness: HPI Narrative: 35-year-old female brought in by EMS. The patient had been dropped off in front of an acquaintance's house. They called 911. Patient is intoxicated. Information obtained from family members indicates that she has a history of alcohol and methamphetamine abuse. The police questioned her and she stated that she just wanted them to chop her head off. She also asked them if they could get her some heroin. The patient is able to talk but does not answer questions. When I asked her questions she would stop talking. Records indicate that she does have a history of bipolar. MD complaint: suicidal ideation (She wanted to please to chop her head off .) and altered mental status Context: recent alcohol abuse and recent drug abuse Treatments prior to arrival: none and placed on mental health hold (Due to the patient's comments to the police as well as evasiveness with regards to answer my questions we will initiate a 96-hour hold.). She was admitted to the neuropsychiatric unit for definitive treatment of those issues. Presents here on the unit very resistant to the fact that she is on a 96-hour hold. She has no to this keno writer / runner from her past psychiatric admission at the end of October. An excerpt is included below because she denies any substantive changes and she is a resistant historian essentially repeating again and again that she in fact should not be here and that this is wrong and really is not interested in answering questions just discussing her being able to leave a soon as possible. She essentially reports that she got drunk and said some off the wall off the cuff statements and she reports that people to get out of context and now she is here. Her UDS was positive for benzodiazepines, amphetamines and marijuana. And her blood alcohol level was 170. I tried to discuss with her the fact that it may been a combination of all these drugs that made it so that she was out of sorts and she continued to report that people are taking without a contact she is fine and should be discharged. We discussed the fact that we need to be able to identify that she is going to be safe when she is discharged and so the likelihood is that she will need to stay as we evaluate her for safety. She denies any need for psychiatric services or any other treatment. She is unable to really articulate the possible medication she should be taking. Per her 11/14/2020 [facility] inpatient psychiatric eval: History of Present Illness Clarissa Correa is a 35 year old female who presented to the emergency department following report: Chief Complaint: Psychiatric Symptoms Stated Complaint: SI Time Seen by Provider: 11/13/20 21:43 Source: patient and EMS Mode of arrival: EMS Limitations: altered mental status History of Present Illness: HPI Narrative: 35-year-old female that today texted friends that she was going to come to [place] and kill herself shooting herself with a gun. Patient was found intoxicated with Xanax and a gun in position. Last seen she was and was given Haldol on the way here. Patient did have a gun in her possession. Here she is sedated from Haldol and no history is available from her at this point. She does have a history of psychiatric illness and depression. Associated symptoms: Reports depression and suicidal ideation. She was admitted to the neuropsychiatric unit for definitive treatment of those issues. This morning she presents reporting never been in a psychiatric hospital but that she has had therapy a long time ago and that she currently is on medications through Dr. Phoenix and Francoise Adams. She is reportedly on Paxil, Xanax and Wellbutrin and reports that the medication doses are fine. She smokes a half a grams a day, reports getting alcohol occasionally, denies marijuana but was evasive in discussions about cocaine, methamphetamine or other illicit drugs eventually reporting that she does methamphetamine from time to time. She reports being in a rehab about three times and having one DUI. She reports that what got her in this situation is that her ex did not go to court. Due to him failing to go to court he is now in shelter which made her feel tello cidal each. She reports that she got a gun and she got very evasive about exactly what happened but she is on a 96-hour hold secondary to concerns for safety. She agreed to talk to the social director and explore different options for sober living treatment but she seems somewhat ambivalent during the time of our conversation. Psychiatric history: As above. Substance abuse history: As above. Family history: She endorses mental health and addiction issues on both sides of her family but denied any suicide attempts or completions on either side. Developmental history: There were no problems with the , or delivery, learned to walk and talk and met developmental milestones on time, and denies need for speech therapy, learning support, emotional support or special education classes. Psychosocial history: Reports her mother and father were together when she was born and remain together. She endorses that she has three sisters and one brother from that union and she is the oldest of the five. She endorses that her childhood was fine and she denied any emotional, physical or sexual abuse. She endorses that she graduated from high school and did get an associates degree from college. She endorses being a heterosexual and her longest relationship was 12 years. She been one time and denies having an official divorce but they are . She has three children; a thirteen avoid a and two girls ages eleven and seven. She never been in the and denies any orthodox [employer] system. Her longest job was 6 years [employer] and she endorses living in a trailer with her three kids and her cousin's girlfriend and her girlfriend's cousin's childr en. Legal history: She endorses being in care home once maybe twice but never for longer than a couple of hours. Medical history: Please see ED note for full details but she denies any significant history. Meds NPU Home Medications Medication Instructions Recorded Confirmed Last Taken Type alprazolam 0.5 mg PO BID PRN 30 Days #60 tab 11/17/20 Unknown Rx bupropion HCl [Wellbutrin XL] 150 mg PO QAM 30 Days #30 tab 11/17/20 Unknown Rx paroxetine HCl 20 mg PO DAILY 30 Days #30 tab 11/17/20 Unknown Rx Allergies Allergy/AdvReac Type Severity Reaction Status Date / Time No Known Allergies Allergy Verified 09/14/20 14:24 [facility] NPU PFS: Medical History (Updated 12/19/20 @ 13:24 by Bennett Gordillo MD) Bartholin's gland abscess (~2018) Generalized anxiety disorder Hypertension Major depressive disorder, recurrent severe without psychotic features Opioid dependence, uncomplicated Other stimulant dependence, uncomplicated Patient denies medical problems Denies diabetes, asthma, seizures, DVT/PE Surgical History History of delivery (~06/06/13) delivery at [facility] for placental abruption History of cholecystectomy (~2012) Done at time of exploratory laparoscopy for ruptured gastric ulcer in History of exploratory laparotomy (~2012) Done for ruptured gastric ulcer - also had a cholecystectomy at the same time Family History Grandfather Diabetes Paternal Mother Hypertension Heart disease Unknown No problems noted. Denies family history of Colon cancer Ovarian cancer Hypercholesteremia Breast cancer Uterine cancer Stroke Mental Status Exam MSE Comments: This is an overweight versus obese white female in hospital scrubs with limited grooming and eye contact. With significant tattoos on exposed him. No abnormal movements except for psychomotor retardation. Semi cooperative with exam in mild to moderate distress. Speech was limited and decreased rate and volume. Mood described as fine, affect irritable. Thought process organized. Thought content: Patient denied suicidal or homicidal ideations, there were no delusions reported or noted, she denied any auditory visual hallucinations. Attention and concentration were impaired and memory was unreliable but none were formally tested. She alert and oriented x3. Insight judgment are impaired and impulse control is impaired. Vitals/I&O/Wt Last Vital Signs Temp 98.6 F 12/19/20 10:40 Pulse 87 12/19/20 10:40 Resp 16 12/19/20 10:40 BP 107/68 12/19/20 10:40 Pulse Ox 93 12/19/20 10:40 12/18/20 12/19/20 12/19/20 22:59 06:59 14:59 Intake Total 1000 / 1000 10 10 Balance 1000 / 1000 10 Weight last 48 hrs Weight 70.307 kg Data NPU : 12/19/20 02:48 12/19/20 02:48 A&P Assessment and plan (1) Partner relational problem: Status: Acute (2) Methamphetamine use: Status: Acute (3) Other stimulant dependence, uncomplicated: Status: Acute (4) Major depressive disorder, recurrent severe without psychotic features: Status: Acute (5) Generalized anxiety disorder: Status: Acute (6) Alcohol abuse: Status: Acute (7) Cannabis abuse: Status: Acute Additional A&P Information This is a 35-year old white female with a long history of mood, anxiety and addiction with multiple substances who presents intoxicated, belligerent and on a 96-hour hold and unwilling to really discuss treatment. 1. Continue current medication. 2. Continue every 15 minute checks for safety. 3. Encourage individual, group and milieu therapies. 4. Encourage sober living treatment after discharge at the highest level of care to which he is willing to commit. Involuntary Hold Information 96 Hour Hold: 96 Hour Involuntary Admission: Yes 96 Hour Hold Ending Date: 12/25/20 96 Hour Hold Ending Time: 06:18 Attestations NPU Medical Necessity Statement*: Inpatient hospitalization is medically necessary and the clinically appropriate intervention at this time. We will monitor medications and make changes as indicated. Patient will be in the hospital for over two midnights. Likely length of stay 3 to 5 days. Coding Level of Care Code Acute Retort Furnace Helper for Fawn Fwd Diagnoses Partner relational problem Z63.0 Methamphetamine use F15.10 Other stimulant dependence, uncomplicated F15.20 Major depressive disorder, recurrent severe without psychotic features F33.2 Generalized anxiety disorder F41.1 Alcohol abuse F10.10 Cannabis abuse F12.10
[2020-12-20 06:00] VITALS: BP 137/83; PULSE 80; RESP 14; TEMP 36.4; O2SAT 96
[2020-12-20] MEDS: folic acid 1 mg Tablet PO (08:23)
[2020-12-20] MEDS: multivitamin therapeutic Tablet 1 TAB PO (08:23)
[2020-12-20] MEDS: thiamine 100 mg Tablet PO (08:23)
[2020-12-20] MEDS: OLANZapine 5 mg ODT PO (09:35)
[2020-12-20] MEDS: nicotine 21 mg Patch 1 PATCH TRANSDERMA (09:35)
--- NOTE | 2020-12-20 09:38 | PC.NURSE ---
Patient behavior Patient came to desk demanding to leave. Stated she did not belong here. Demanding to see the doctor which was not present. Agreed to take Zyprexa Zydis 5mg po to help with agitation.
[2020-12-20 14:00] VITALS: BP 110/78; PULSE 88; RESP 16; TEMP 37.1; O2SAT 97
[2020-12-20] MEDS: acetaminophen 325 mg Tablet 650 MG PO (15:51)
--- NOTE | 2020-12-20 15:53 | PC.NURSE ---
Patient behavior Childrens Division worker here to speak with patient. She was yelling at staff for calm down medication. Advised patient to take a few deep breaths and remain calm while talking with the childrens division worker. Pt sat on bench with security present and began to speak calmly with CD worker.
--- NOTE | 2020-12-20 17:14 | PM.NPN ---
Subjective NPU Subjective: Interval history: Clarissa presents today continuing to be quite irritable about her circumstances. She continues to have no real conversation about her role in her being here in the police getting involved. She continues to express anger about her parents not letting her just let me sleep it off and stop getting the gas appliance servicer involved. She refused to talk about her behavior and the possibility they are acting out of genuine concern. She continues to endorse that her being here is a breech of her civil liberties. And is unwilling to talk about treatment or discharge planning. Mental Status Exam MSE Comments: This is an overweight versus obese white female in hospital scrubs with limited grooming and eye contact. With significant tattoos on exposed him. No abnormal movements except for psychomotor retardation intermixed with psychomotor agitation. Semicooperative with exam in mild to moderate distress. Speech was limited and increased rate and volume. Mood described as I do not need to be here, affect irritable. Thought process organized. Thought content: Patient denied suicidal or homicidal ideations, there were no delusions reported or noted, she denied any auditory visual hallucinations. Attention and concentration were impaired and memory was unreliable but none were formally tested. She alert and oriented x3. Insight judgment are impaired and impulse control is impaired. Vitals/I&O/Wt Last Vital Signs Temp 97.8 F 12/20/20 20:22 Pulse 75 12/20/20 20:22 Resp 18 12/20/20 20:22 BP 128/75 12/20/20 20:22 Pulse Ox 95 12/20/20 20:22 Data NPU : 12/19/20 02:48 12/19/20 02:48 A&P Additional A&P Information (1) Partner relational problem: (2) Methamphetamine use: (3) Other stimulant dependence, uncomplicated: (4) Major depressive disorder, recurrent severe without psychotic features: (5) Generalized anxiety disorder: (6) Alcohol abuse: (7) Cannabis abuse: Additional A&P Information This is a 35-year old white female with a long history of mood, anxiety and addiction with multiple substances who presents intoxicated, belligerent and on a 96-hour hold and unwilling to really discuss treatment. 1. Continue current medication. 2. Continue every 15 minute checks for safety. 3. Encourage individual, group and milieu therapies. 4. Encourage sober living treatment after discharge at the highest level of care to which he is willing to commit. Involuntary Hold Information 96 Hour Hold: 96 Hour Involuntary Admission: Yes 96 Hour Hold Ending Date: 12/25/20 96 Hour Hold Ending Time: 06:18 Attestations NPU Medical Necessity Statement*: Inpatient hospitalization is medically necessary and the clinically appropriate intervention at this time. We will monitor medications and make changes as indicated. Likely length of stay 2-4 days. Evaluate for safety to discharge given 96-hour hold concerns. Coding Level of Care Code Acute Regional Agronomist for Fawn Mendoza
[2020-12-20] MEDS: hyDROXYzine 25 mg Capsule 50 MG PO (19:02)
[2020-12-20 20:22] VITALS: BP 128/75; PULSE 75; RESP 18; TEMP 36.6; O2SAT 95
[2020-12-21 06:00] VITALS: BP 136/80; PULSE 71; RESP 16; TEMP 36.1; O2SAT 98
[2020-12-21] MEDS: multivitamin therapeutic Tablet 1 TAB PO (08:29)
[2020-12-21] MEDS: thiamine 100 mg Tablet PO (08:29)
[2020-12-21] MEDS: folic acid 1 mg Tablet PO (08:29)
[2020-12-21] MEDS: nicotine 21 mg Patch 1 PATCH TRANSDERMA (12:30)
[2020-12-21] MEDS: hyDROXYzine 25 mg Capsule 50 MG PO (13:09)
--- NOTE | 2020-12-21 13:10 | PC.NURSE ---
Addendum entered by Hui Becerril LPN 12/21/20 16:24: prn med effective no further c/o anxiety Original Note: PRN VISTARIL 50 MG GIVEN PO PER PT C/O STATED ANXIETY. WILL CONT TO MONITOR
[2020-12-21] MEDS: acetaminophen 325 mg Tablet 650 MG PO (15:27)
--- NOTE | 2020-12-21 15:42 | PM.NDC ---
Diagnoses at Discharge Discharge Diagnosis (1) Partner relational problem: Status: Acute (2) Methamphetamine use: Status: Acute (3) Other stimulant dependence, uncomplicated: Status: Acute (4) Major depressive disorder, recurrent severe without psychotic features: Status: Acute (5) Generalized anxiety disorder: Status: Acute (6) Alcohol abuse: Status: Acute (7) Cannabis abuse: Status: Acute Reason for Visit Reason for Visit: AMS Hospital Course Hospital Course 35-year-old female with history of polysubstance abuse presented to the emergency department with report of making suicidal statement in the context of alcohol, benzodiazepine, methamphetamine, cannabis intoxication. Patient states that she was not suicidal and does not recall making any suicidal statements. Patient did not make any suicidal statements throughout her hospital stay but was irritable and mostly uncooperative throughout her stay because of her frustration of being hospitalized because of being intoxicated. Patient denies any recent self-harm or suicidal gestures. Patient does report that she has been abusing substances and alcohol and is aware that she needs to attend residential substance and alcohol treatment. Patient was placed on CILA protocol and monitored and provided symptomatic treatment with plan to continue home medications at time of discharge. Patient was not suicidal and did not report any active psychiatric symptoms at the time of discharge and did not appear to pose an imminent threat of harm to self or others. Low to moderate risk of harm to self given no current suicidal ideation and no active psychiatric symptoms although patient's risk may be elevated if she continues to abuse alcohol and substances leading to unexpected, impulsive behavior. Risk mitigation included psychiatric hospitalization for observation for suicidal ideation and behaviors, symptomatic treatment for any withdrawal symptoms, recommendation to abstain from the use of alcohol and substances as well as coordination for safe discharge to include post discharge substance and alcohol counseling/treatment. Patient was able to communicate her understanding of the need to abstain from the use of substances and alcohol as well as the need for post discharge substance and alcohol counseling/treatment in order to further mitigate her risk of harm to self and others. Involuntary Hold Information 96 Hour Hold: 96 Hour Involuntary Admission: Yes 96 Hour Hold Ending Date: 12/25/20 96 Hour Hold Ending Time: 06:18 Mental Status Exam MSE Comments: Appears older than stated age, overweight, disheveled, tired appearing, somewhat irritable but cooperative with interview, good eye contact Psychomotor activity is neither increased nor decreased, no agitation Speech is normal rate and volume, spontaneous, clear articulation, not pressured I am fine, congruent affect, not labile Alert and oriented to person, place, time, situation Memory and concentration appear to be intact per interview Intellectual functioning appears to be average based on vocabulary, interview Thought process, linear, no flight of ideas Thought content, no delusions, no hallucinations, no suicidal or homicidal ideation Insight and judgment appear to be fair Discharge Data Vitals: Last Vital Signs Temp 96.9 F L 12/21/20 06:00 Pulse 71 12/21/20 06:00 Resp 16 12/21/20 06:00 BP 136/80 12/21/20 06:00 Pulse Ox 98 12/21/20 06:00 Discharge Plan Discharge Patient Disposition: Home Condition: Stable Prescriptions: New thiamine mononitrate (vit B1) [Vitamin B-1 (mononitrate)] 100 mg Tablet 100 mg PO DAILY Qty: 30 RF: 0 Continued paroxetine HCl 20 mg Tablet 20 mg PO DAILY 30 Days Qty: 30 RF: 1 bupropion HCl [Wellbutrin XL] 150 mg tablet extended release 24 hr 150 mg PO QAM 30 Days Qty: 30 RF: 1 Discontinued alprazolam 0.5 mg tablet 0.5 mg PO BID PRN (Reason: unknown) 30 Days Qty: 60 RF: 1 Discharge Orders: Discharge Order (Routine); Ordered 12/21/20 Ordered By: Cliff Florence Referrals: [facility] [Outside] - 01/04/21 11:00 am (Outpatient Mon-Wed) Discharge Diet: Usual diet Discharge Activity: Resume usual activity Patient Instructions: Opioid Safety Discharge Attestations NPU Time Spent in Discharge Care*: greater than 30 min Status at Discharge: Cognitive status at discharge: cognitively intact, Behavioral status at discharge: cooperative, Functional status at discharge: independent ambulation Overall status at discharge: patient is back to baseline Coding Level of Care Code Acute Chg FW DC note Diagnoses Partner relational problem Z63.0 Methamphetamine use F15.10 Other stimulant dependence, uncomplicated F15.20 Major depressive disorder, recurrent severe without psychotic features F33.2 Generalized anxiety disorder F41.1 Alcohol abuse F10.10 Cannabis abuse F12.10
[2020-12-21 16:04] VITALS: BP 136/80; PULSE 71; RESP 16; TEMP 36.1; O2SAT 98
== END 2020-12-21 16:49 | disposition home or self-care (01) | DRG 897 ==
LOC: ER 02:20 → NP 06:42
PROVIDERS: Emergency Medicine; Admitting Provider Psychiatry & Neurology Psychiatry; Emergency Provider Family Medicine; PCP Family Medicine; Visit Provider Psychiatry & Neurology Psychiatry
DX: F10.129 Alcohol abuse with intoxication, unspecified (principal); F11.20 Opioid dependence, uncomplicated; F33.2 Major depressive disorder, recurrent severe without psychotic features; R45.851 Suicidal ideations; Y90.9 Presence of alcohol in blood, level not specified; F15.90 Other stimulant use, unspecified, uncomplicated; F12.10 Cannabis abuse, uncomplicated; F41.1 Generalized anxiety disorder; I10 Essential (primary) hypertension; Z63.0 Problems in relationship with spouse or partner
CPT/HCPCS: 80053; 80306; 80307; 81003; 81025; 83735; 84443; 85025; 96372; 99285; 99291; J2060; J3486; J7030

== ENCOUNTER 2021-01-28 18:02 | Inpatient (IN) | payer MEDICAID, SELFPAY ==
[2021-01-28] VITALS (8 sets, daily range): BP systolic 116–182; BP diastolic 67–117; PULSE 88–157; RESP 13–25; TEMP 36.7; O2SAT 91–100; BMI 33.0
[2021-01-28] MEDS: LORazepam 2 mg/mL INJ 1 mL IM ×2 (18:16→22:18)
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
--- NOTE | 2021-01-28 18:46 | PC.NURSE ---
Restraints removed at this time
[2021-01-28 18:49] LABS: Basophils # 0.1 10^3/uL (0.0-0.1); Basophils % 1.1 %; Eosinophils # 0.3 10^3/uL (0.0-0.8); Eosinophils % 2.5 %; Hematocrit 43.4 % (37.0-47.0); Hemoglobin 14.5 g/dL (11.5-15.3); Mean Corpuscular HGB Conc 33.4 g/dL (30.0-36.0); Mean Corpuscular Hemoglobin 29.7 pg (28.0-34.0); Mean Corpuscular Volume 88.9 fL (81-99); Mean Platelet Volume 8.5 fL (7.4-10.4); Monocytes # 0.6 10^3/uL (0.2-0.9); Monocytes % 4.7 %; Neutrophils # 7.79 10^3/uL (1.8-7.7); Neutrophils % 60.2 %; Nucleated Red Blood Cells % 0 %; Platelet Count 490 10^3/cmm (130-400); Red Blood Count 4.88 10^6/uL (4.1-5.3); Red Cell Distribution Width 13.7 % (12.1-15.1)
[2021-01-28 19:00] LABS: Alanine Aminotransferase 134 U/L (0-33); Albumin Level 4.1 g/dL (3.5-5.2); Alcohol Level 288 mg/dL (0-10); Alkaline Phosphatase 92 IU/L (35-105); Anion Gap 22.6 (5-19); Aspartate Amino Transferase 30 U/L (0-32); Blood Urea Nitrogen 10 mg/dL (6-20); Calcium 8.7 mg/dL (8.5-10.5); Carbon Dioxide 17 mmol/L (22-29); Chloride 106 mmol/L (98-107); Globulin 3.4 g/dL (1.3-4.6); Glomerular Filtration Rate 82.1 mL/min (90-130); Glucose 87 mg/dL (65-115); Osmolality Calculated 292 mOsm/kg (285-295); Potassium 3.6 mmol/L (3.5-5.1); Sodium 142 mmol/L (136-145); Total Bilirubin 0.3 mg/dL (0.15-1.2); Total Protein 7.5 g/dL (6.6-8.7)
[2021-01-28 19:05] LABS: Acetaminophen < 5.0 ug/mL (10-30); Salicylate < 0.3 mg/dL (3-10)
[2021-01-28 19:13] LABS: Slide Review Slide Review Perform
--- NOTE | 2021-01-28 19:53 | PC.NURSE ---
patient is resting quietly at this time.1:[address] vs stable
--- NOTE | 2021-01-28 21:29 | PC.NURSE ---
patient is awake and up out of bed. she attempted to leave and is redirected back to room. physician came to room and assessed and talked with her. he asked if she wanted food and she states she does. I gave her a sprite, sandwich and pudding. patient ate half of the sandwich.
[2021-01-28] MEDS: haloperidol inj 5 mg/mL INJ 1 mL IM (22:19)
[2021-01-28 23:40] LABS: Alcohol Level 124 mg/dL (0-10)
[2021-01-29] VITALS: BP 120/71; PULSE 88; RESP 16; O2SAT 95
[2021-01-29 00:01] LABS: HCG Qualitative Urine. Negative (Negative)
--- NOTE | 2021-01-29 00:11 | PC.NURSE ---
at 2200 patient was being verbally threatening to the doctor and she is yelling and cursing
--- NOTE | 2021-01-29 00:28 | PC.NURSE ---
at 2215 patient is placed in violent behavior restraints. patient sat herself in the floor and then trying to leave, also was trying to strike her head on the glass door. she is yelling and cursing and thrashing around.
--- NOTE | 2021-01-29 00:36 | PC.NURSE ---
report to Damon MALDONADO
[2021-01-29 00:52] LABS: Amphetamines Screen Urine Negative (Negative); Barbiturates Screen Urine Negative (Negative); Benzodiazepines Screen Urine Positive (Negative); Cocaine Screen Urine Negative (Negative); Opiate Screen Urine Negative (Negative); PCP Screen Urine Negative (Negative); THC Screen Urine Negative (Negative)
[2021-01-29] MEDS: LORazepam 2 mg/mL INJ 1 mL IM (01:25)
[2021-01-29] MEDS: ziprasidone 20 mg/mL SDV IM (01:26)
[2021-01-29 01:34] VITALS: BP 116/78; PULSE 95; O2SAT 95
[2021-01-29 01:45] VITALS: BP 102/67; PULSE 90; RESP 19; TEMP 36.6; O2SAT 98
[2021-01-29 06:00] VITALS: BP 102/64; PULSE 100; RESP 16; TEMP 36.9; O2SAT 94
--- NOTE | 2021-01-29 10:21 | PC.NURSE ---
scheduled 0900 meds held d/t level of sedation & pt is unable to safely swallow medications at this time
--- NOTE | 2021-01-29 13:05 | PM.NHP ---
Providers/Chief Complaint Admitting Physician: Cliff Florence DO Primary Care Provider: Nitza Phoenix DO Chief Complaint: BIZARRE BEHAVIOR HPI NPU History of Present Illness Clarissa Correa is a 35 year old female with unclear past psychiatric history with multiple recent hospitalizations secondary to belligerent, bizarre behavior while under the influence of alcohol and substances in which she becomes threatening and physically agitated. Patient was experiencing alcohol intoxication was also positive for benzodiazepines at the time of her initial evaluation yesterday in which she required chemical sedation secondary to physical agitation. Patient currently denying any recent mood symptoms, denies any suicidal ideation or thoughts about self-harm. Patient reports having multiple stressors but does not elaborate although patient is known to have ongoing unstable living arrangement, financial stressors, relationship stressors. Patient currently denying any psychotic symptoms, denies any perceptual disturbances, denies any auditory or visual hallucinations, denies any delusions. Patient states that she has an appointment scheduled with her primary care on February 01 and typically has her medications managed by her primary care. Patient is somewhat unclear with regards to her compliance with her medication and states that she has not followed up with outpatient substance/alcohol treatment stating that there are no beds available until March. Review of Systems General: Reports: 10 or more systems reviewed and unremarkable except in HPI and below Meds NPU Home Medications Medication Instructions Recorded Confirmed Last Taken Type paroxetine HCl 20 mg PO DAILY 30 Days #30 tab 11/17/20 01/28/21 Unknown Rx thiamine mononitrate (vit B1) 100 mg PO DAILY #30 tab 12/21/20 01/28/21 Unknown Rx [Vitamin B-1 (mononitrate)] bupropion HCl [Wellbutrin XL] 150 mg PO DAILY 01/28/21 01/28/21 Unknown History norethindrone (contraceptive) 0.35 mg PO DAILY 01/28/21 01/28/21 Unknown History [Jencycla] Allergies Allergy/AdvReac Type Severity Reaction Status Date / Time No Known Allergies Allergy Verified 09/14/20 14:24 PFSH NPU PFSH: Medical History Bartholin's gland abscess (~2018) Generalized anxiety disorder Hypertension Major depressive disorder, recurrent severe without psychotic features Opioid dependence, uncomplicated Other stimulant dependence, uncomplicated Patient denies medical problems Denies diabetes, asthma, seizures, DVT/PE Surgical History History of delivery (~06/06/13) delivery at [place] for placental abruption History of cholecystectomy (~2012) Done at time of exploratory laparoscopy for ruptured gastric ulcer in History of exploratory laparotomy (~2012) Done for ruptured gastric ulcer - also had a cholecystectomy at the same time Family History Grandfather Diabetes Paternal Mother Hypertension Heart disease Unknown No problems noted. Denies family history of Colon cancer Ovarian cancer Hypercholesteremia Breast cancer Uterine cancer Stroke Other Psychiatric History: Other Psychiatric History: Patient with multiple psychiatric hospitalizations for substance intoxication/withdrawal States that she last had her medications managed by a psychiatrist a couple of years ago Currently has her medications managed by primary care Reports past suicide attempts but does not recall when, patient has had multiple past gestures while under the influence Mental Status Exam MSE Comments: Lying in bed, disheveled, unkempt, overweight, appears older than stated age, fair eye contact Psychomotor activity is neither increased nor decreased, no agitation Speech is normal rate and volume, spontaneous, clear articulation, not pressured I feel okay, congruent affect, not labile Alert and oriented to person, place, time, situation Memory for recent events is poor and concentration appears to be intact per interview Intellectual functioning appears to be average based on vocabulary, interview Thought process, linear, no flight of ideas Thought content, no delusions, no hallucinations, no suicidal or homicidal ideation Insight and judgment appear to be fair Vitals/I&O/Wt Last Vital Signs Temp 98.4 F 01/29/21 06:00 Pulse 100 01/29/21 06:00 Resp 16 01/29/21 06:00 BP 102/64 01/29/21 06:00 Pulse Ox 94 01/29/21 06:00 Weight last 48 hrs Weight 79.379 kg Data NPU : 01/28/21 18:40 01/28/21 18:40 A&P Assessment and plan (1) Drug-induced psychotic disorder: Status: Acute (2) Alcohol abuse: Status: Acute (3) Cannabis abuse: Status: Acute Additional A&P Information Patient with ongoing substance and alcohol use with noncompliance with recommended post discharge substance and alcohol treatment presenting to the emergency department under the influence with physical and verbal agitation requiring chemical sedation while in the emergency department. Patient has quickly reconstituted denying any suicidal or homicidal ideation and reports no recent sustained mood symptoms. INVOLUNTARY ADMIT to inpatient psychiatry DISCONTINUE paroxetine, START citalopram 20 mg daily targeting mood Encouraged patient to participate in unit activities to include group sessions, unit milieu Coordinate with social media content specialist for post discharge mental health care and substance/alcohol treatment Involuntary Hold Information 96 Hour Hold: 96 Hour Involuntary Admission: Yes 96 Hour Hold Ending Date: 02/01/21 96 Hour Hold Ending Time: 22:38 Attestations NPU Medical Necessity Statement*: Psychiatric hospitalization indicated for observation for any persisting suicidal or homicidal ideation or behaviors, coordination for safe discharge Anticipate hospital stay to exceed 2 midnights Time Spent in Patient Care: Greater than 35 minutes (>than 50% of time spent in counselling and/or direct pt care on unit). Coding Level of Care Code Acute Pattern C[employer] for [employer]wn Mendoza Diagnoses Drug-induced psychotic disorder F19.959 Alcohol abuse F10.10 Cannabis abuse F12.10
[2021-01-29 14:00] VITALS: BP 107/72; PULSE 87; RESP 20; TEMP 37.4; O2SAT 97
[2021-01-29] MEDS: nicotine 2 mg Gum BUCCAL (19:03)
[2021-01-29] MEDS: hyDROXYzine 25 mg Capsule 50 MG PO (19:26)
[2021-01-29 22:00] VITALS: BP 116/74; PULSE 104; RESP 16; TEMP 37.6; O2SAT 99
[2021-01-30 05:42] VITALS: BP 128/83; PULSE 73; RESP 15; TEMP 37.7; O2SAT 96
[2021-01-30] MEDS: multivitamin therapeutic Tablet 1 TAB PO (08:34)
[2021-01-30] MEDS: folic acid 1 mg Tablet PO (08:34)
[2021-01-30] MEDS: citalopram 20 mg Tablet PO (08:34)
[2021-01-30] MEDS: thiamine 100 mg Tablet PO (08:34)
[2021-01-30 08:50] VITALS: BMI 33.0
--- NOTE | 2021-01-30 09:36 | P.DS_ITS ---
Diagnoses at Discharge Discharge Diagnosis (1) Drug-induced psychotic disorder: Status: Acute (2) Alcohol abuse: Status: Acute (3) Cannabis abuse: Status: Acute Reason for Visit Reason for Visit: BIZARRE BEHAVIOR Hospital Course Hospital Course 35-year-old female with history of polysubstance abuse and recent discharge from this unit approximately 6 weeks ago presented to the emergency department with alcohol intoxication and bizarre behavior. Patient states that she did not re call the events leading up to police bringing her to the emergency department and was denying any suicidal ideation at the time of initial evaluation. She denied any mood symptoms and denied any suicidal ideation throughout her hospital stay. Patient was not compliant with substance treatment post discharge 6 weeks ago but has communicated interest in follow on substance counseling/treatment. denies any recent self-harm or suicidal gestures. Patient does report that she has been abusing substances and alcohol and is aware that she needs to attend residential substance and alcohol treatment. She denied any withdrawal symptoms during her stay. Paroxetine was discontinued secondary to patient's history of noncompliance with concerns about discontinuation symptoms and started on citalopram 20 mg daily with plan to continue her other home medications at time of discharge. Patient was not suicidal and did not report any active psychiatric symptoms at the time of discharge and did not appear to pose an imminent threat of harm to self or others. Low to moderate risk of harm to self given no current suicidal ideation and no active psychiatric symptoms although patient's risk may be elevated if she continues to abuse alcohol and substances leading to unexpected, impulsive behavior. Risk mitigation included psychiatric hospitalization for observation for suicidal ideation and behaviors, symptomatic treatment for any withdrawal symptoms, recommendation to abstain from the use of alcohol and substances as well as coordination for safe discharge to include post discharge substance and alcohol counseling/treatment. Patient was able to communicate her understanding of the need to abstain from the use of substances and alcohol as well as the need for post discharge substance and alcohol counseling/treatment in order to further mitigate her risk of harm to self and others. Involuntary Hold Information 96 Hour Hold: 96 Hour Involuntary Admission: Yes 96 Hour Hold Ending Date: 02/01/21 96 Hour Hold Ending Time: 22:38 Mental Status Exam MSE Comments: Sitting up on her bed, wearing hospital scrubs, appears older than stated age, overweight, cooperative with interview, good eye contact Psychomotor activity is neither increased nor decreased, no agitation Speech is normal rate and volume, spontaneous, clear articulation, not pressured I am okay, congruent affect, not labile Alert and oriented to person, place, time, situation Memory and concentration appear to be intact per interview Thought process, linear, no flight of ideas, no looseness of associations Thought content, no delusions, no hallucinations, no suicidal or homicidal ideation Insight and judgment appear to be fair Discharge Data Vitals: Last Vital Signs Temp 99.9 F H 01/30/21 05:42 Pulse 73 01/30/21 05:42 Resp 15 01/30/21 05:42 BP 128/83 01/30/21 05:42 Pulse Ox 96 01/30/21 05:42 Discharge Plan Discharge Patient Disposition: Home Condition: Stable Prescriptions: New citalopram 20 mg Tablet 20 mg PO DAILY Qty: 30 RF: 0 Continued thiamine mononitrate (vit B1) [Vitamin B-1 (mononitrate)] 100 mg Tablet 100 mg PO DAILY Qty: 30 RF: 0 Jencycla 0.35 mg tablet 0.35 mg PO DAILY RF: 0 bupropion HCl [Wellbutrin XL] 150 mg tablet extended release 24 hr 150 mg PO DAILY RF: 0 Discontinued paroxetine HCl 20 mg Tablet 20 mg PO DAILY 30 Days Qty: 30 RF: 1 Discharge Orders: Discharge Order (Routine); Ordered 01/30/21 Ordered By: Cliff Florence Referrals: Nitza Phoenix DO [Primary Care Provider] - Discharge Diet: Regular Discharge Activity: Resume usual activity Patient Instructions: Opioid Safety Discharge Attestations NPU Time Spent in Discharge Care*: greater than 30 min Status at Discharge: Cognitive status at discharge: cognitively intact , Behavioral status at discharge: cooperative , Functional status at discharge: independent ambulation Overall status at discharge: patient is back to baseline Coding Level of Care Code Acute Chg FW DC note Diagnoses Drug-induced psychotic disorder F19.959 Alcohol abuse F10.10 Cannabis abuse F12.10
[2021-01-30] MEDS: hyDROXYzine 25 mg Capsule 50 MG PO (09:50)
[2021-01-30] MEDS: nicotine 21 mg Patch 1 PATCH TRANSDERMA (09:50)
--- NOTE | 2021-01-30 10:06 | PC.NURSE ---
PRN VISTARIL 50 MG GIVEN PO PER PT REQUEST OF ANXIETY MED. PT CALM BUT WITHDRAWN. ISOLATED TO ROOM, STAFF WILL CONT TO MONITOR CLOSELY
[2021-01-30 10:24] VITALS: BP 128/83; PULSE 73; RESP 15; TEMP 37.7; O2SAT 96
== END 2021-01-30 12:16 | disposition home or self-care (01) | DRG 897 ==
LOC: ER 22:28 → NP 01-29 00:35
PROVIDERS: Admitting Provider Psychiatry & Neurology Psychiatry; Emergency Provider Emergency Medicine; PCP Family Medicine; Visit Provider Psychiatry & Neurology Psychiatry
DX: F19.959 Other psychoactive substance use, unspecified with psychoactive substance-induced psychotic disorder, unspecified (principal); F33.9 Major depressive disorder, recurrent, unspecified; F11.20 Opioid dependence, uncomplicated; F10.10 Alcohol abuse, uncomplicated; F41.1 Generalized anxiety disorder; I10 Essential (primary) hypertension; F12.10 Cannabis abuse, uncomplicated; Z91.14 Patient's other noncompliance with medication regimen
CPT/HCPCS: 80053; 80306; 80307; 81025; 85025; 96372; 99285; J1630; J2060; J3486; J3490

== ENCOUNTER → 2021-04-04 16:25 | Outpatient (BNVA) | payer MEDICAID, SELFPAY | PROVIDERS: PCP Family Medicine; Visit Provider Nurse Practitioner Women's Health | DX: Z01.419 Encounter for gynecological examination (general) (routine) without abnormal findings (principal); A74.9 Chlamydial infection, unspecified; F12.10 Cannabis abuse, uncomplicated; F15.10 Other stimulant abuse, uncomplicated; R87.615 Unsatisfactory cytologic smear of cervix; F10.10 Alcohol abuse, uncomplicated | CPT/HCPCS: 86592; 86803; 87340; 87491; 87591; 87661; 87806; 88175 ==

== ENCOUNTER → 2021-09-03 11:26 | Outpatient (BNVA) | payer MEDICAID, SELFPAY | PROVIDERS: PCP Family Medicine; Visit Provider Nurse Practitioner | DX: F41.1 Generalized anxiety disorder (principal); F33.2 Major depressive disorder, recurrent severe without psychotic features; F17.210 Nicotine dependence, cigarettes, uncomplicated; F15.20 Other stimulant dependence, uncomplicated; F10.20 Alcohol dependence, uncomplicated | CPT/HCPCS: 99215 ==

== ENCOUNTER → 2021-09-05 13:02 | Outpatient (BNVA) | payer MEDICAID, SELFPAY | PROVIDERS: PCP Family Medicine; Visit Provider Nurse Practitioner Family | DX: Z20.822 Contact with and (suspected) exposure to COVID-19 (principal) | CPT/HCPCS: 87635 ==

== ENCOUNTER 2021-12-27 16:31 | Emergency (ER) | payer MEDICAID, SELFPAY ==
[2021-12-27 16:43] VITALS: BP 136/84; PULSE 117; RESP 18; TEMP 37.4; O2SAT 100; BMI 28.3
--- NOTE | 2021-12-27 16:43 | ED_ITS ---
HPI - Overdose General: Chief Complaint: Altered Mental Status Stated Complaint: AMS Time Seen by Provider: 12/27/21 16:34 Source: patient, family (Sister) and EMS Mode of arrival: EMS Limitations: altered mental status History of Present Illness: Patient was transported from her place of residence by EMS. EMS was notified by the patient's sister who found her unresponsive. Patient has a longstanding history of opiate and methamphetamine use and admitted to using fentanyl today. Upon arrival EMS found her to be unresponsive and started an IV and gave her IV Narcan and she became immediately responsive. She is continue to remain responsive and alert for them while in transport. She denies any pain or discomfort at this time. She states she is thirsty. She admitted that she used an uncertain amount of fentanyl today. They do not have any Narcan at her home. complaint: accidental overdose Context: Intentional Overdose: drug/ETOH problems Context: Accidental Overdose: wanted to get high Treatments Prior to Arrival: oxygen and narcan Review of Systems Const: Denies: fever(s) or chills Eyes: Denies: change in vision or blurry vision ENMT: Denies: throat pain or odynophagia Card: Denies: chest pain, palpitations or irregular heart rhythm Resp: Denies: dyspnea, productive cough or non-productive cough GI: Denies: abdominal pain, nausea or vomiting : Denies: flank pain, difficulty voiding or dysuria Musc: Denies: neck pain, back pain, extremity pain, extremity swelling or joint swelling Skin/Breast: Denies: rash or pruritus Neuro: Denies: headache(s) or numbness in extremities Psych: Reports: mood swings; Denies: suicidal ideation or homicidal ideation Endo: Denies: polyuria or polydipsia PFS ED PFSH: Medical History Alcohol dependence, uncomplicated Bartholin's gland abscess (~2018) Generalized anxiety disorder Hypertension Major depressive disorder, recurrent severe without psychotic features Opioid dependence, uncomplicated Other stimulant dependence, uncomplicated Patient denies medical problems Denies diabetes, asthma, seizures, DVT/PE Psychiatric care Surgical History History of delivery (~06/06/13) delivery at [place] for placental abruption History of cholecystectomy (~2012) Done at time of exploratory laparoscopy for ruptured gastric ulcer in History of exploratory laparotomy (~2012) Done for ruptured gastric ulcer - also had a cholecystectomy at the same time Family History Grandfather Diabetes Paternal Mother Hypertension Heart disease Unknown No problems noted. Denies family history of Colon cancer Ovarian cancer Hypercholesteremia Breast cancer Uterine cancer Stroke Female Reproductive History: Date of last menstrual period: 09/07/21 Para: 3 Spontaneous abortions: No Physical Exam Narrative: EXAM NARRATIVE: Is somewhat disheveled in appearance but alert and answers questions appropriately. Const: COMMON NORMALS: average body habitus, patient oriented x3 and alert GENERAL APPEARANCE: cooperative and disheveled ORIENTATION/CONSCIOUSNESS: Yes awake, Yes oriented to person and Yes oriented to place HENMT: COMMON NORMALS: normocephalic, atraumatic, Normal nasal mucous membranes and turbinates present and moist oral mucous membranes HEAD & SCALP: normocephalic and atraumatic FACE & SINUS: normal facial exam, sinuses nontender and face symmetric NOSE: Normal nasal mucous membranes and turbinates present Eye: COMMON NORMALS: Equal, round and reactive pupils present, EOMs intact bilaterally and conjunctivae normal CONJUNCTIVA: Yes conjunctivae normal PUPIL: Yes Equal, round and reactive pupils present and Yes Pupil accommodation reflex normal Neck/C-Spine: COMMON NORMALS: full ROM, supple and no meningeal signs Chest: COMMONS NORMALS: normal inspection of the chest Resp: COMMON NORMALS: normal respiratory effort, No retractions, No use of accessory muscles and clear to auscultation bilaterally AUSCULTATION: clear to auscultation bilaterally Cardio: COMMON NORMALS: regular rate, No murmurs present (Cardio) and Peripheral pulses 2+ throughout RATE: regular rate PERIPHERAL PULSES: Peripheral pulses 2+ throughout GI: COMMON NORMALS: Soft to palpation and non-tender PALPATION: Yes Soft to palpation : COMMON NORMALS: Yes no CVA tenderness BLADDER/KIDNEY EXAM: Yes no CVA tenderness Back/Pelvis: COMMON NORMALS: no CVA tenderness, thoracic and lumbar spine normal to inspection and no thoracic nor lumbar tenderness Extremity: COMMON NORMALS: normal to inspection, full ROM, capillary refill normal, no clubbing, cyanosis or edema, no calf tenderness and no pedal edema Neuro: COMMON NORMALS: patient oriented x3, moves all extremities, no focal motor deficits and no sensory deficits noted SENSORIUM/ORIENTATION: Yes alert, Yes oriented to person and Yes oriented to place MENINGEAL SIGNS: Yes no meningeal signs SPEECH: speech normal Psych: COMMON NORMALS: mental status grossly normal, cooperative, denies homicidal ideation and denies suicidal ideation Skin: NARRATIVE SKIN EXAM: Patient has multiple puncture wounds in her upper extremities. No other signs of infection, cellulitis etc. Course Reevaluation(s): Reevaluation #1: Patient's vital signs remained stable. She is easily alerted. Her father is now here. He discussed his concerns regarding her ongoing activity and his plans to try to get her moved away from this area where drug use is so rampant. She is clinically stable. We will go ahead and get a chest x-ray to ensure there is no evidence of any other issues given her sister and others perform CPR on her. Time: 18:19 Reevaluation #2: Patient was reevaluated. She remains in normal sinus rhythm without any ectopy. She remains clinically alert and awake without any new or focal findings on reexamination. She is alert, pupils are equal and reactive, speech is normal, no motor or sensory deficits. No other focal findings on reexamination. Her chest x-ray is reassuring. We discussed the dangers of opioid use. She acknowledges that she has little if any experience with opiates in the past being primarily a methamphetamine user. At this point she has been observed almost 3 hours well past the half-life of Narcan making it extremely unlikely that she will suffer a rebound respiratory depression from her earlier opiate use. We will provide her a Narcan prescription. Given I counseled her stridently on discontinuing any street drug use. Stable at this time for discharge. Time: 19:18 Vital Signs: Vital signs: Vital Signs Temperature 99.3 F 12/27/21 16:43 Pulse Rate 103 H 12/27/21 18:54 Respiratory Rate 13 12/27/21 18:54 Blood Pressure 116/73 12/27/21 18:54 Pulse Oximetry 97 12/27/21 18:54 MDM - Overdose Medical Decision Making Patient who is known longstanding user of methamphetamine used fentanyl today with untoward results of significant respiratory depression. She was discovered by family who attempted to revive her but did provide resuscitative measures. Upon arrival EMS gave her Narcan and she immediately became alert and awake. She was transported the emergency department where we have observed her for almost 3 hours without any recurrence of any respiratory depression, somnolence etc. She has suffered no untoward effects it would appear at this time. She is remained in normal sinus rhythm normal oxygen saturation, normal chest x-ray and a normal and reassuring examination. Stable for discharge at this time. Differential Diagnosis Likely poisoning by opiate or related narcotic Medical Records I reviewed the patient's medical records. Imaging Data CXR: I personally reviewed and interpreted this imaging study as follows: My impression: Chest x-ray appears no evidence of acute disease at this time. Other Data I personally reviewed and interpreted the following: Discharge Plan Discharge Patient Disposition: Home Clinical Impression: Opiate overdose Condition: Stable Prescriptions: New naloxone [Narcan] 4 mg/actuation spray,non-aerosol 4 mg intranasal Q2M PRN (Reason: opioid overdose) Qty: 2 0RF Rx Instructions: spray 1 dose into ONE nostril; alternate nostrils w each dose until help arrives No Action norethindrone (contraceptive) [Jencycla] 0.35 mg tablet 0.35 mg PO DAILY Qty: 84 2RF alprazolam 1 mg Tablet 1 mg PO BID PRN (Reason: Anxiety) 0RF naltrexone 50 mg Tablet 50 mg PO DAILY 0RF baclofen 10 mg Tablet 10 mg PO QPM 0RF aripiprazole 10 mg Tablet 10 mg PO DAILY 0RF bupropion HCl 150 mg Tablet Extended Release 24 Hr 450 mg PO QAM 0RF Discharge Orders: Discharge ED (Routine); Ordered 12/27/21 Ordered By: Issa Ca Referrals: Nitza Phoenix DO [Primary Care Provider] - Discharge Diet: Usual diet Discharge Activity: Increase activity as tolerated Patient Instructions: Opioid Safety (ED), Opioid Use Disorder (ED), Opioid Safety Activity Restrictions/Additional Instructions: Do not use street drugs. Provided a Narcan prescription to use should you suffer another overdose. Your friends and family should be told where this medication is located so that they can assist you. Coding Level of Care Code ED Cloth Printer Helper for Fawn Fwsonali Exam Comprehensive
--- NOTE | 2021-12-27 17:38 | PC.PHAR ---
PT UNABLE TO VERIFY DUE TO AMS. VERIFIED USING EXTERNAL MED LIST
--- NOTE | 2021-12-27 18:19 | XRR_ITS ---
PROCEDURE INFORMATION: Exam: XR Chest Exam date and time: 12/27/2021 6:24 PM Age: 36 years old Clinical indication: Other: Overdose; Additional info: Overdose-aspiration TECHNIQUE: Imaging protocol: XR of the chest. Views: 1 view. COMPARISON: CT Abdomen/Pelvis Renal [id number] 07/27/2017 7:21 AM FINDINGS: Lungs: Unremarkable. No consolidation. Pleural spaces: Unremarkable. No pleural effusion. No pneumothorax. Heart/Mediastinum: Unremarkable. No cardiomegaly. Bones/joints: Unremarkable. XR/XR chest 1V portable [id number] IMPRESSION: No acute findings.
[2021-12-27 18:54] VITALS: BP 116/73; PULSE 103; RESP 13; O2SAT 97
[2021-12-27 20:07] VITALS: BP 99/73; PULSE 93; RESP 16; O2SAT 99
== END 2021-12-27 20:08 | disposition home or self-care (01) ==
PROVIDERS: Emergency Provider Emergency Medicine; PCP Family Medicine
DX: T40.601A Poisoning by unspecified narcotics, accidental (unintentional), initial encounter (principal); F15.90 Other stimulant use, unspecified, uncomplicated; F11.90 Opioid use, unspecified, uncomplicated
CPT/HCPCS: 71045; 99283

== ENCOUNTER → 2022-02-07 15:08 | Outpatient (BNVA) | payer MEDICAID, SELFPAY | PROVIDERS: PCP Family Medicine; Visit Provider Registered Nurse Neonatal Intensive Care | DX: N39.0 Urinary tract infection, site not specified (principal); Z20.2 Contact with and (suspected) exposure to infections with a predominantly sexual mode of transmission | CPT/HCPCS: 81000; 87491; 87591; 87661 ==

== ENCOUNTER → 2022-02-28 15:57 | Outpatient (BNVA) | payer MEDICAID, SELFPAY | PROVIDERS: PCP Family Medicine; Visit Provider Nurse Practitioner Women's Health | DX: R76.8 Other specified abnormal immunological findings in serum (principal); Z30.9 Encounter for contraceptive management, unspecified; Z01.419 Encounter for gynecological examination (general) (routine) without abnormal findings; Z30.41 Encounter for surveillance of contraceptive pills | CPT/HCPCS: 86592; 87340; 87522; 87624; 87806 ==

== ENCOUNTER 2022-09-23 17:49 | Inpatient (IN) | payer MEDICAID, SELFPAY ==
[2022-09-23 17:57] VITALS: BP 130/93; PULSE 101; RESP 18; TEMP 37.4; O2SAT 98; BMI 30.2
--- NOTE | 2022-09-23 18:40 | ED_ITS ---
HPI - Abdominal Pain General: Chief Complaint: ER Hold Stated Complaint: N/V/D Abd pains Time Seen by Provider: 09/23/22 18:40 History of Present Illness: Ms. Correa is a 57-year-old lady with history of psychiatric care, alcohol abuse, substance abuse, history of reported perforated viscus presenting to the emergency department for abdominal pain. She reports symptoms of been ongoing for a few days and were gradual in onset. Burning sensation as well as sharp pain in the epigastric region. She notes increased reflux and acid taste in her mouth causing cough. Overall course of symptoms has worsened. Intensity is moderate to severe. Reports similar prior to prior perforated viscus. She is not on PPI/H2 cassia. No other specific changes in health, exacerbating, or alleviating factors identified. Onset (ago): day(s) Pain Consistency: constant Location: Epigastric Severity: moderate Quality: stabbing, aching and sharp Exacerbating factors: nothing Relieving factors: nothing Associated Symptoms: Reports belching, dyspepsia, heartburn, nausea and other Related Data: Date of Last Menstrual Period: 09/07/21 Review of Systems General: Reports: 10 or more systems reviewed and unremarkable except in HPI and below GI: Reports: nausea, heartburn, belching and other PFSH ED PFSH: Medical History Alcohol abuse Alcohol dependence, uncomplicated Bartholin's gland abscess (~2018) Cannabis abuse Colitis Dehydration Gastroenteritis Generalized anxiety disorder Hypertension Major depressive disorder, recurrent severe without psychotic features Methamphetamine use Nausea, vomiting, and diarrhea Opioid dependence, uncomplicated Other stimulant dependence, uncomplicated Partner relational problem Patient denies medical problems Denies diabetes, asthma, seizures, DVT/PE Positive hepatitis C antibody test Psychiatric care SBO (small bowel obstruction) Substance induced mood disorder Surgical History History of delivery (~06/06/13) delivery at [place] for placental abruption History of cholecystectomy (~2012) Done at time of exploratory laparoscopy for ruptured gastric ulcer in History of exploratory laparotomy (~2012) Done for ruptured gastric ulcer - also had a cholecystectomy at the same time Family History Grandfather Diabetes Paternal Mother Hypertension Heart disease Unknown No problems noted. Family/Other Uterine cancer Maternal Aunt---dx age 30's Denies family history of Colon cancer Ovarian cancer Hypercholesteremia Breast cancer Stroke Female Reproductive History: Date of last menstrual period: 09/07/21 Para: 3 Spontaneous abortions: No Physical Exam Const: COMMON NORMALS: alert GENERAL APPEARANCE: cooperative and well developed HENMT: COMMON NORMALS: normocephalic and atraumatic HEAD & SCALP: normocephalic and atraumatic Eye: COMMON NORMALS: conjunctivae normal CONJUNCTIVA: Yes conjunctivae normal SCLERA: sclerae normal Neck/C-Spine: COMMON NORMALS: supple GENERAL: Yes trachea midline Resp: COMMON NORMALS: clear to auscultation bilaterally EFFORT & INSPECTION: Yes able to speak in complete sentences AUSCULTATION: clear to auscultation bilaterally Cardio: COMMON NORMALS: regular rhythm RATE: tachycardic RHYTHM: regular rhythm GI: COMMON NORMALS: Soft to palpation PALPATION: Yes Soft to palpation, Yes Tenderness to palpation present (GI), Yes Guarding due to palpation present (GI) and No Rigid due to palpation Extremity: GENERAL: Yes normal exam except as noted and No edema Neuro: COMMON NORMALS: moves all extremities SENSORIUM/ORIENTATION: Yes alert and No Orientation impaired Psych: COMMON NORMALS: mental status grossly normal and Normal thought process present THOUGHT PROCESS: Normal thought process present Course Vital Signs: Vital signs: Vital Signs Temperature 98.2 F 09/25/22 10:33 Pulse Rate 82 09/25/22 10:33 Respiratory Rate 18 09/25/22 10:33 Blood Pressure 100/59 09/25/22 10:33 Pulse Oximetry 96 09/25/22 10:33 Oxygen Delivery Nc thod 09/25/22 08:00 MDM - Abdominal Pain Medical Decision Making 37-year-old lady presenting with abdominal symptoms. Patient has a remote history of perforated viscus. Abdominal exam is quite tender without evidence of acute surgical abdomen. A broad differential considered and testing ordered as appropriate based on clinical likelihood and morbidity/mortality associated conditions. Labs with leukocytosis and hemoconcentration, evidence of dehydration on metabolic panel. Transaminitis of unclear etiology. Urinalysis with squamous epithelial contamination. Chest x-ray with no lobar consolidation or pneumothorax. CT demonstrates low- grade small bowel obstruction and colitis, incidental findings noted. Patient treated with antiemetic, PPI, fluids. Case discussed with general surgery who will consult. NG tube ordered which the patient refused. Most likely etiology of patient symptoms is small bowel obstruction. The results of ED evaluation were discussed with the patient including plan for admission due to requirement for level of care not available if discharged to prevent significant worsening/deterioration. Patient agreeable with plan. Discussed with hospitalist service who was agreeable to admit patient. Medical Records I reviewed the patient's medical records. Lab Data I reviewed the patient's lab results. 09/25/22 05:50 09/25/22 05:50 Labs/Radiology: Radiology Impressions Abdomen/Pelvis CT 09/23/22 18:58 IMPRESSION: 1. Several borderline dilated small bowel loops with fluid measuring up to 3 cm suggestive of an obstruction, potentially low-grade. 2. Prominent fluid in colon suggestive of a colitis. 3. Small amount of nonspecific fluid in the pelvis. 4. Left ovary 16 mm peripherally enhancing cyst suggestive of a partially collapsed follicle. 5. Small umbilical hernia containing omentum without bowel. 6. Possible medullary nephrocalcinosis again seen. 7. Right hepatic lobe cyst. 8. Bilateral renal cysts, negative for follow up. 9. Hepatic steatosis. COMMENTS: Consistent with the [employer]'s Incidental Findings Committee white paper (J Am Estuardo Radiol 2018): Any incidental renal lesion less than 1 cm or classified as too small to characterize, or any incidental cystic renal lesion characterized as simple-appearing, is likely benign. No follow-up imaging is recommended for these lesions per consensus recommendations based on imaging criteria. Chest X-Ray 09/23/22 18:58 IMPRESSION: No acute findings. Laboratory Results WBC 11.2 10^3/uL (4.0-10.0) H 09/23/22 19:08 RBC 5.35 10^6/uL (4.1-5.3) H 09/23/22 19:08 Hgb 15.9 g/dL (11.5-15.3) H 09/23/22 19:08 Hct 48.3 % (37.0-47.0) H 09/23/22 19:08 MCV 90.3 fl (81-99) 09/23/22 19:08 MCH 29.7 pg (28.0-34.0) 09/23/22 19:08 MCHC 32.9 g/dL (30.0-36.0) 09/23/22 19:08 RDW 13.1 % (12.1-15.1) 09/23/22 19:08 Plt Count 435 10^3/cmm (130-400) H 09/23/22 19:08 MPV 9.7 fL (7.4-10.4) 09/23/22 19:08 Neut % (Auto) 63.9 % 09/23/22 19:08 Lymph % (Auto) 22.7 % 09/23/22 19:08 [place] % (Auto) 8.4 % 09/23/22 19:08 Eos % (Auto) 4.0 % 09/23/22 19:08 Baso % (Auto) 0.6 % 09/23/22 19:08 Neut # (Auto) 7.14 10^3/uL (1.8-7.7) 09/23/22 19:08 Lymph # (Auto) 2.5 10^3/uL (0.8-4.8) 09/23/22 19:08 [place] # (Auto) 0.9 10^3/uL (0.2-0.9) 09/23/22 19:08 Eos # (Auto) 0.5 10^3/uL (0.0-0.8) 09/23/22 19:08 Baso # (Auto) 0.1 10^3/uL (0.0-0.1) 09/23/22 19:08 Nucleated RBC % (auto) 0 % 09/23/22 19:08 Nucleated RBCs # 0.0 /100WBC 09/23/22 19:08 Sodium 130 mmol/L (136-145) L 09/23/22 19:59 Potassium 3.4 mmol/L (3.5-5.1) L 09/23/22 19:59 Chloride 98 mmol/L (98-107) 09/23/22 19:59 Carbon Dioxide 25 mmol/L (22-29) 09/23/22 19:59 Anion Gap 10.4 (5-19) 09/23/22 19:59 BUN 8 mg/dL (6-20) 09/23/22 19:59 Creatinine 0.7 mg/dL (0.5-0.9) 09/23/22 19:59 GFR Calculation 94.7 mL/min (90-130) 09/23/22 19:59 Glucose 86 mg/dL (65-115) 09/23/22 19:59 Calculated Osmolality 268 mOsm/kg (285-295) L 09/23/22 19:59 Calcium 8.0 mg/dL (8.5-10.5) L 09/23/22 19:59 Total Bilirubin 0.3 mg/dL (0.15-1.2) 09/23/22 19:59 AST 21 U/L (0-32) 09/23/22 19:59 ALT 78 U/L (0-33) H 09/23/22 19:59 Alkaline Phosphatase 89 U/L (35-105) 09/23/22 19:59 Total Protein 6.5 g/dL (6.6-8.7) L 09/23/22 19:59 Albumin 3.3 g/dL (3.5-5.2) L 09/23/22 19:59 Globulin 3.2 g/dL (1.3-4.6) 09/23/22 19:59 Lipase 36 U/L (13-60) 09/23/22 19:59 HCG, Qual Negative (Negative) 09/23/22 19:08 Urine Color Yellow (Yellow) 09/23/22 19:08 Urine Appearance Hazy (CLEAR) A 09/23/22 19:08 Urine pH 6 (5-7) 09/23/22 19:08 Ur Specific [place] 1.010 (1.005-1.030) 09/23/22 19:08 Urine Protein Neg (Negative) 09/23/22 19:08 Urine Glucose (UA) Norm (Normal) 09/23/22 19:08 Urine Ketones Negative (Negative) 09/23/22 19:08 Urine Blood Neg (Negative) 09/23/22 19:08 Urine Nitrate Negative (Negative) 09/23/22 19:08 Urine Bilirubin Neg (Negative) 09/23/22 19:08 Urine Urobilinogen Neg mg/dL (Negative) 09/23/22 19:08 Ur Leukocyte Esterase 2+ (Negative) H 09/23/22 19:08 Urine RBC None /hpf (0-2) 09/23/22 19:08 Urine WBC 5-10 /hpf (0-5) H 09/23/22 19:08 Ur Squamous Epith Cells 25-40 /hpf (0-5) H 09/23/22 19:08 Calcium Oxalate Crystal 15-25 /hpf H 09/23/22 19:08 Amorphous Sediment 1+ /hpf 09/23/22 19:08 Urine Bacteria Trace /hpf (NONE) 09/23/22 19:08 Urine Mucus 1+ /hpf 09/23/22 19:08 Urine Opiates Screen Negative ng/mL (Negative) 09/23/22 19:08 Ur Barbiturates Screen Negative ng/mL (Negative) 09/23/22 19:08 Ur Phencyclidine Scrn Negative ng/mL (Negative) 09/23/22 19:08 Ur Amphetamines Screen Positive ng/mL (Negative) H 09/23/22 19:08 U Benzodiazepines Scrn Positive ng/mL (Negative) H 09/23/22 19:08 Urine Cocaine Screen Negative ng/mL (Negative) 09/23/22 19:08 U Marijuana (THC) Screen Negative ng/mL (Negative) 09/23/22 19:08 Discharge Plan Discharge Patient Disposition: Admitted As Inpatient Admit Provider: Shobha Lee Clinical Impression: SBO (small bowel obstruction), Nausea, vomiting, and diarrhea, Dehydration Condition: Stable Coding Level of Care Code ED Truck Assembler for Fawn Mendoza
[2022-09-23 18:45] VITALS: BP 137/60
--- NOTE | 2022-09-23 18:58 | XRR_ITS ---
PROCEDURE INFORMATION: Exam: XR Chest Exam date and time: 09/23/2022 7:03 PM Age: 37 years old Clinical indication: Other: Nausea, cramps; Additional info: Cough TECHNIQUE: Imaging protocol: Radiologic exam of the chest. Views: 1 view. COMPARISON: CR XR chest 1V portable [id number] 12/27/2021 6:24 PM FINDINGS: Lungs: Unremarkable. No consolidation. Pleural spaces: Unremarkable. No pleural effusion. No pneumothorax. Heart/Mediastinum: Unremarkable. No cardiomegaly. Bones/joints: Unremarkable. XR/XR chest 1V portable [id number] IMPRESSION: No acute findings.
--- NOTE | 2022-09-23 18:58 | CTR_ITS ---
PROCEDURE INFORMATION: Exam: CT Abdomen And Pelvis With Contrast Exam date and time: 09/23/2022 7:42 PM Age: 37 years old Clinical indication: Nausea and vomiting; Abdominal pain; Generalized; Prior surgery; Surgery type: Gb. Csection; Patient HX: Diffuse abd pain with n/v/d. History of perforated gastric ulcer. ; Additional info: Epigastric pain, reported HX remote perforated viscus TECHNIQUE: Imaging protocol: Computed tomography of the abdomen and pelvis with contrast. Radiation optimization: All CT scans at this facility use at least one of these dose optimization techniques: automated exposure control; mA and/or kV adjustment per patient size (includes targeted exams where dose is matched to clinical indication); or iterative reconstruction. Contrast material: OMNI 350; Contrast volume: 100 ml; Contrast route: INTRAVENOUS (IV); Other protocol: This patient has received 0 known CTs and 0 known cardiac nuclear medicine studies in the 12 months prior to the current study. COMPARISON: CT kidney stone [id number] 07/27/2017 7:21 AM RADIATION DOSE METRICS: Total DLP (mGy-cm): 616.63 FINDINGS: Liver: Right hepatic lobe cyst. Hepatic steatosis. Gallbladder and bile ducts: Normal. No calcified stones. No ductal dilation. Pancreas: Normal. No ductal dilation. Spleen: Normal. No splenomegaly. Adrenal glands: Normal. No mass. Kidneys and ureters: Possible medullary nephrocalcinosis again seen. Bilateral renal cysts, negative for follow up. Stomach and bowel: Several borderline dilated small bowel loops with fluid measuring up to 3 cm suggestive of an obstruction, potentially low-grade. Prominent fluid in colon suggestive of a colitis. Appendix: No evidence of appendicitis. Intraperitoneal space: Unremarkable. No free air. No significant fluid collection. Vasculature: Unremarkable. No abdominal aortic aneurysm. Lymph nodes: Unremarkable. No enlarged lymph nodes. Urinary bladder: Unremarkable as visualized. Reproductive: Left ovary 16 mm peripherally enhancing cyst suggestive of a partially collapsed follicle. Bones/joints: Unremarkable. No acute fracture. Soft tissues: Small umbilical hernia containing omentum without bowel. Other findings: Small amount of nonspecific fluid in the pelvis. CT/CT abdomen pelvis w con* [id number] IMPRESSION: 1. Several borderline dilated small bowel loops with fluid measuring up to 3 cm suggestive of an obstruction, potentially low-grade. 2. Prominent fluid in colon suggestive of a colitis. 3. Small amount of nonspecific fluid in the pelvis. 4. Left ovary 16 mm peripherally enhancing cyst suggestive of a partially collapsed follicle. 5. Small umbilical hernia containing omentum without bowel. 6. Possible medullary nephrocalcinosis again seen. 7. Right hepatic lobe cyst. 8. Bilateral renal cysts, negative for follow up. 9. Hepatic steatosis. COMMENTS: Consistent with the [employer]'s Incidental Findings Committee white paper (J Am Estuardo Radiol 2018): Any incidental renal lesion less than 1 cm or classified as too small to characterize, or any incidental cystic renal lesion characterized as simple-appearing, is likely benign. No follow-up imaging is recommended for these lesions per consensus recommendations based on imaging criteria.
[2022-09-23 19:18] LABS: HCG Qualitative Urine. Negative (Negative)
[2022-09-23 19:19] LABS: Basophils # 0.1 10^3/uL (0.0-0.1); Basophils % 0.6 %; Eosinophils # 0.5 10^3/uL (0.0-0.8); Hematocrit 48.3 % (37.0-47.0); Hemoglobin 15.9 g/dL (11.5-15.3); Lymphocytes # 2.5 10^3/uL (0.8-4.8); Lymphocytes % 22.7 %; Mean Corpuscular HGB Conc 32.9 g/dL (30.0-36.0); Mean Corpuscular Hemoglobin 29.7 pg (28.0-34.0); Mean Corpuscular Volume 90.3 fl (81-99); Mean Platelet Volume 9.7 fL (7.4-10.4); Monocytes # 0.9 10^3/uL (0.2-0.9); Monocytes % 8.4 %; Neutrophils # 7.14 10^3/uL (1.8-7.7); Neutrophils % 63.9 %; Nucleated Red Blood Cells % 0 %; Platelet Count 435 10^3/cmm (130-400); Red Blood Count 5.35 10^6/uL (4.1-5.3); Red Cell Distribution Width 13.1 % (12.1-15.1); White Blood Count 11.2 10^3/uL (4.0-10.0)
[2022-09-23] MEDS: ondansetron 2 mg/ML SDV 2 mL 4 MG IVP (19:20)
[2022-09-23] MEDS: sodium chloride 0.9% 1,000 ML 999 ML IV (19:21)
[2022-09-23] MEDS: alum-mag-hydroxide-sime 30 mL UDC PO (19:21)
[2022-09-23] MEDS: pantoprazole 40 mg SDV 80 MG IVP (19:23)
[2022-09-23 19:38] LABS: Add Urine Microscopic? YES; Bilirubin Urine Neg (Negative); Blood Urine Neg (Negative); Glucose Urine UA Norm (Normal); Ketones Urine Negative (Negative); Leukocyte Esterase Urine 2+ (Negative); Nitrate Urine Negative (Negative); Protein Urine Neg (Negative); Urine Appearance Hazy (CLEAR); Urine Color Yellow (Yellow); Urobilinogen Urine Neg (Negative); pH Urine 6 (5-7)
[2022-09-23 19:39] LABS: Add Urine Culture? No; Amorphous Sediment Urine 1+ /hpf; Bacteria Urine TRACE /hpf; Calcium Oxalate Crystals Urine 15-25 /hpf; Mucus Urine 1+ /hpf; Squamous Epithelial Cell Urine 25-40 /hpf (0-5)
[2022-09-23 19:41] LABS: Slide Review Slide Review Perform
[2022-09-23] MEDS: iohexol 350 mg/mL 500 mL Btl (per mL) IV (19:44)
[2022-09-23 20:20] LABS: Alanine Aminotransferase 78 U/L (0-33); Albumin Level 3.3 g/dL (3.5-5.2); Alkaline Phosphatase 89 U/L (35-105); Aspartate Amino Transferase 21 U/L (0-32); Blood Urea Nitrogen 8 mg/dL (6-20); Carbon Dioxide 25 mmol/L (22-29); Chloride 98 mmol/L (98-107); Globulin 3.2 g/dL (1.3-4.6); Glomerular Filtration Rate 94.7 mL/min (90-130); Glucose 86 mg/dL (65-115); Lipase 36 U/L (13-60); Osmolality Calculated 268 mOsm/kg (285-295); Sodium 130 mmol/L (136-145); Total Bilirubin 0.3 mg/dL (0.15-1.2); Total Protein 6.5 g/dL (6.6-8.7)
[2022-09-23 20:26] LABS: Anion Gap 10.4 (5-19); Potassium 3.4 mmol/L (3.5-5.1)
--- NOTE | 2022-09-23 21:52 | P.HP_ITS ---
Providers/Chief Complaint Admitting Physician: Shobha Lee MD Primary Care Provider: Nitza Phoenix DO Chief Complaint: N/V/D Abd pains History of Present Illness Clarissa Correa is a 37 year old female with past medical history of alcohol dependence, generalized anxiety disorder, hypertension, depression, perforated gastric ulcer requiring exploratory laparotomy 2013., Cholecystectomy, presented to the hospital today for abdominal pain. She states the pain pain started a few days ago and was initially gradual and started worsening. He has a burning sensation as well as a sharp pain in the epigastric region. He has been having much more acid reflux and acid taste in her mouth causing coughing. Overall symptoms have worsened. She has had a similar history before to prior perforated viscus. Nothing is making the pain better or worse. Describes the pain as crampy in nature that comes and goes. When seen says she feels a little bit better and is refusing to have an NG tube placed. Pain medicine was offered but she said she did not need any at this time. Has been having watery diarrhea for the last 2 days. ER course blood pressure 137/60, respirate 18, pulse 101, temperature 99.4, saturating 98% on room air. Labs show WBC 11.2, hemoglobin 15.9, sodium 130, potassium 3.4, calcium 8.0, albumin 3.3, protein 6.5, urinalysis positive for 2+ leukocyte esterase, 5-10 WBC, 50-25 calcium oxalate crystals. Squamous cells 25-40. CT abdomen pelvis shows several borderline dilated small bowel loops with fluid measuring up to 3 cm suggestive of obstruction potentially low-grade. Prominent fluid in the colon suggestive of colitis, small amount of nonspecific fluid in pelvis. Left ovary 16mm peripherally enhancing cyst suggestive of a partially collapsed follicle. Small umbilical hernia containing omentum without bowel, possible medullary nephrocalcinosis again seen, right hepatic lobe cyst, bilateral renal cyst negative for follow-up, hepatic steatosis. Medications/Allergies Home Medications Medication Instructions Recorded Confirmed Last Taken Type aripiprazole 10 mg tablet 10 mg PO DAILY 12/27/21 02/28/22 Unknown History baclofen 10 mg tablet 10 mg PO QPM 12/27/21 02/28/22 Unknown History bupropion HCl 150 mg 24 hr tablet, 450 mg PO QAM 12/27/21 02/28/22 Unknown History extended release clonazepam 0.5 mg tablet 0.25 mg PO BID 02/28/22 02/28/22 Unknown History norethindrone (contraceptive) 0.35 0.35 mg PO DAILY #84 tabs 02/28/22 02/28/22 Unknown Rx mg tablet ([facility]) Allergies Allergy/AdvReac Type Severity Reaction Status Date / Time No Known Allergies Allergy Verified 02/07/22 14:40 PFSH Acute PFSH: Medical History (Updated 09/23/22 @ 21:16 by Baldev Hanson MD) Alcohol dependence, uncomplicated Bartholin's gland abscess (~2018) Generalized anxiety disorder Hypertension Major depressive disorder, recurrent severe without psychotic features Opioid dependence, uncomplicated Other stimulant dependence, uncomplicated Patient denies medical problems Denies diabetes, asthma, seizures, DVT/PE Psychiatric care Surgical History History of delivery (~06/06/13) delivery at [place] for placental abruption History of cholecystectomy (~2012) Done at time of exploratory laparoscopy for ruptured gastric ulcer in History of exploratory laparotomy (~2012) Done for ruptured gastric ulcer - also had a cholecystectomy at the same time Family History (Updated 02/28/22 @ 15:04 by Veronica Porras) Grandfather Diabetes Paternal Mother Hypertension Heart disease Unknown No problems noted. Family/Other Uterine cancer Maternal Aunt---dx age 30's Denies family history of Colon cancer Ovarian cancer Hypercholesteremia Breast cancer Stroke Female Reproductive History: Date of last menstrual period: 09/07/21 Para: 3 Spontaneous abortions: No Vitals/I&O/Wt Last Vital Signs Temp 99.4 F 09/23/22 17:57 Pulse 101 H 09/23/22 17:57 Resp 18 09/23/22 17:57 BP 137/60 09/23/22 18:45 Pulse Ox 98 09/23/22 17:57 O2 Del Method 09/23/22 17:57 Weight last 48 hrs Weight 72.575 kg Physical Exam Narrative: General: Alert oriented x3, patient seen laying in bed, no acute distress. HEENT: Normocephalic, atraumatic, EOMI, Cardio: Regular rate rhythm, normal S1-S2, no murmurs Respiratory: Good bilateral air entry, no wheezes no rhonchi appreciated GI: Abdomen soft, nontender to palpation, no apparent guarding, bowel sounds hypoactive. Behavior: cooperative Extremities: No edema present. Data 09/23/22 19:08 09/23/22 19:59 A&P Assessment and plan (1) SBO (small bowel obstruction): (2) Nausea, vomiting, and diarrhea: (3) Dehydration: (4) Generalized anxiety disorder: (5) Methamphetamine use: (6) Cannabis abuse: Plan #Small bowel obstruction #Collitis #Dehydration, nausea #Alcohol abuse -May be former. Denies alcohol use at this time. #Substance abuse disorder?may be former. Denies substance abuse at this time. #Depression, anxiety -CT abdomen pelvis shows several borderline dilated small bowel loops with fluid measuring up to 3 cm suggestive of obstruction potentially low-grade. Prominent fluid in the colon suggestive of colitis, small amount of nonspecific fluid in pelvis. Left ovary 16mm peripherally enhancing cyst suggestive of a partially collapsed follicle. Small umbilical hernia containing omentum without bowel, possible medullary nephrocalcinosis again seen, right hepatic lobe cyst, bilateral renal cyst negative for follow-up, hepatic steatosis. - Place NG tube. Patient has refused at this time. - n.p.o. -General surgery consulted ? IV fluids normal saline 150 cc/h ? CIWA protocol ? Check urine drug screen ? Continue Wellbutrin ? Clonazepam twice daily as needed ? Aripiprazole 10 mg daily. ? Patient's medications will need to be confirmed from pharmacy in a.m. ? Placed on Zosyn ? Check morning labs. -Check C. difficile. Full code DVT prophylaxis: Heparin SQ twice daily. Attestations Medical Necessity Statement*: Will need to stay in the hospital for management of small bowel obstruction, colitis. Coding Level of Care Code Acute Code for [facility] Fwd Diagnoses SBO (small bowel obstruction) K56.609 Nausea, vomiting, and diarrhea R11.2; R19.7 Dehydration E86.0 Generalized anxiety disorder F41.1 Methamphetamine use F15.10 Cannabis abuse F12.10
[2022-09-23] MEDS: sodium chloride 0.9% 1,000 ML 150 ML IV (22:05)
[2022-09-23 22:30] VITALS: BP 115/75; PULSE 98; RESP 16; O2SAT 98
[2022-09-23] MEDS: pantoprazole 40 mg SDV IVP (22:44)
[2022-09-23] MEDS: heparin 5,000 unit/mL INJ 1 mL 5000 UNIT SUBCUT (22:46)
[2022-09-23 23:01] LABS: Lactic Sepsis W/Reflex 1.4 mmol/L (0.5-2.2)
[2022-09-23 23:02] VITALS: BP 107/44; PULSE 89; RESP 16; O2SAT 99
[2022-09-23 23:11] LABS: Thyroid Stimulating Hormone 0.79 uIU/mL (0.27-4.20)
[2022-09-23] MEDS: morphine 4 mg/mL SDV 1 mL 2 MG IVP (23:54)
[2022-09-24] VITALS (10 sets, daily range): BP systolic 112–153; BP diastolic 65–98; PULSE 72–94; RESP 16–19; TEMP 36.4–36.8; O2SAT 96–100
--- NOTE | 2022-09-24 | PC.NURSE ---
Order for NG tube placed, NG tube was taken into pt room. Pt refused NG tube at this time. She stated she has had one before and it was uncomfortable. Provider sindy
[2022-09-24] MEDS: piperacillin-tazobactam 3.375 GM in sodium chloride 0.9% (plus) 50 ML IV ×3 (01:25→17:41)
--- NOTE | 2022-09-24 01:27 | PC.NURSE ---
Pt resting comfortably in bed when given medication. Pt states that her pain is good and denied needing pain medication. Family member at bedside for support.
[2022-09-24 01:57] LABS: Amphetamines Screen Urine Positive (Negative); Barbiturates Screen Urine Negative (Negative); Benzodiazepines Screen Urine Positive (Negative); Cocaine Screen Urine Negative (Negative); Opiate Screen Urine Negative (Negative); PCP Screen Urine Negative (Negative); THC Screen Urine Negative (Negative)
[2022-09-24] MEDS: sodium chloride 0.9% 1,000 ML 150 ML IV (05:54)
[2022-09-24 07:13] LABS: Basophils # 0.1 10^3/uL (0.0-0.1); Basophils % 0.6 %; Eosinophils # 0.6 10^3/uL (0.0-0.8); Eosinophils % 4.3 %; Hematocrit 40.3 % (37.0-47.0); Hemoglobin 12.9 g/dL (11.5-15.3); Lymphocytes # 2.9 10^3/uL (0.8-4.8); Lymphocytes % 22.6 %; Mean Corpuscular Hemoglobin 29.7 pg (28.0-34.0); Mean Corpuscular Volume 92.6 fl (81-99); Mean Platelet Volume 8.7 fL (7.4-10.4); Monocytes % 8.1 %; Neutrophils # 8.16 10^3/uL (1.8-7.7); Neutrophils % 64.1 %; Nucleated Red Blood Cells % 0 %; Platelet Count 355 10^3/cmm (130-400); Red Blood Count 4.35 10^6/uL (4.1-5.3); Red Cell Distribution Width 13.2 % (12.1-15.1); White Blood Count 12.7 10^3/uL (4.0-10.0)
[2022-09-24 07:32] LABS: Anion Gap 12.8 (5-19); Blood Urea Nitrogen 7 mg/dL (6-20); Calcium 7.6 mg/dL (8.5-10.5); Carbon Dioxide 18 mmol/L (22-29); Chloride 107 mmol/L (98-107); Creatinine Clr Calc Pharmacy 88.5688; Glomerular Filtration Rate 81.2 mL/min (90-130); Glucose 90 mg/dL (65-115); Magnesium 1.6 mg/dL (1.7-2.3); Osmolality Calculated 276 mOsm/kg (285-295); Potassium 3.8 mmol/L (3.5-5.1); Sodium 134 mmol/L (136-145)
--- NOTE | 2022-09-24 08:21 | P.CONIM_ITS ---
Providers/Reason For Consult Consulting Physician/Specialty*: Dr. Cooper Wright DO/General surgery Reason for Consult*: Abdominal pain Attending Physician: Jair Mccann MD Primary Care Provider: Nitza Phoenix DO History of Present Illness History of Present Illness Clarissa Correa is a 37 year old female, with a history of alcohol and methamphetamine abuse, who comes in with a 2-day history of abdominal pain nausea vomiting and diarrhea. She reports that she has been having watery bowel movements and vomited 2 days ago. She reports she is not currently nauseous. She denies any sick contacts or history of travel. She is unsure if she ate anything that might of been bad. She reports that her pain is sharp, burning in the epigastrium. Pain does not radiate. Palpation makes pain worse. Nothing makes pain better. She is currently on IV Protonix. She is asking for something to eat. Review of Systems General: Reports: 10 or more systems reviewed and unremarkable except in HPI and below Medications/Allergies Home Medications Medication Instructions Recorded Confirmed Last Taken Type aripiprazole 10 mg tablet 10 mg PO DAILY 12/27/21 02/28/22 Unknown History baclofen 10 mg tablet 10 mg PO QPM 12/27/21 02/28/22 Unknown History bupropion HCl 150 mg 24 hr tablet, 450 mg PO QAM 12/27/21 02/28/22 Unknown History extended release clonazepam 0.5 mg tablet 0.25 mg PO BID 02/28/22 02/28/22 Unknown History norethindrone (contraceptive) 0.35 0.35 mg PO DAILY #84 tabs 02/28/22 02/28/22 U nknown Rx mg tablet ([facility]) Allergies Allergy/AdvReac Type Severity Reaction Status Date / Time No Known Allergies Allergy Verified 02/07/22 14:40 Current Medications Generic Name Dose Route Start Last Admin Trade Name Freq PRN Reason Stop Dose Admin Heparin Sodium (Porcine) 5,000 unit 09/23/22 22:30 09/23/22 22:46 Heparin 5,000 Unit/Ml Inj 1 Ml SUBCUT 5,000 unit Q12H FERNANDO Administration Sodium Chloride 1,000 mls @ 150 mls/hr 09/23/22 21:30 09/24/22 05:54 Sodium Chloride 0.9% IV 150 mls/hr .Q6H40M FERNANDO Administration Piperacillin Sod/Tazobactam 50 mls @ 12.5 mls/hr 09/24/22 01:30 09/24/22 02:51 Sod 3.375 gm/ Sodium Chloride IV Infused Q8H FERNANDO Infusion Protocol Morphine Sulfate 2 mg 09/23/22 22:22 09/23/22 23:54 Morphine 4 Mg/Ml Sdv 1 Ml IVP 2 mg Q4H PRN Administration SEVERE PAIN Pantoprazole Sodium 40 mg 09/23/22 22:30 09/23/22 22:44 Pantoprazole 40 Mg Sdv IVP 40 mg Q24H FERNANDO Administration PFSH Acute PFSH: Medical History Alcohol dependence, uncomplicated Bartholin's gland abscess (~2018) Generalized anxiety disorder Hypertension Major depressive disorder, recurrent severe without psychotic features Opioid dependence, uncomplicated Other stimulant dependence, uncomplicated Patient denies medical problems Denies diabetes, asthma, seizures, DVT/PE Psychiatric care Surgical History History of delivery (~06/06/13) delivery at [facility] for placental abruption History of cholecystectomy (~2012) Done at time of exploratory laparoscopy for ruptured gastric ulcer in History of exploratory laparotomy (~2012) Done for ruptured gastric ulcer - also had a cholecystectomy at the same time Family History Grandfather Diabetes Paternal Mother Hypertension Heart disease Unknown No problems noted. Family/Other Uterine cancer Maternal Aunt---dx age 30's Denies family history of Colon cancer Ovarian cancer Hypercholesteremia Breast cancer Stroke Female Reproductive History: Date of last menstrual period: 09/07/21 Para: 3 Spontaneous abortions: No Vitals/I&O/Wt Last Vital Signs Temp 97.5 F L 09/24/22 07:57 Pulse 72 09/24/22 07:57 Resp 16 09/24/22 07:57 BP 124/74 09/24/22 07:57 Pulse Ox 97 09/24/22 07:57 O2 Del Method 09/24/22 07:57 09/23/22 09/24/22 09/24/22 22:59 06:59 14:59 Intake Total 1000 / 1000 1050 / 2050 Balance 1000 / 1000 1050 / 2050 Weight last 48 hrs Weight 160 lb Physical Exam Narrative: General : Patient is well developed , no acute distress, oriented x3 Head : Normal cephalic, a-traumatic. Ears : Pinnae and external canal are normal. Hearing is normal. Eyes : PERRLA, Sclera and injection are normal. No conjunctival discharge. Nose : Mucous membranes are without erythema. Throat : buccal mucosa is normal, gums are without significant recession or hypertrophy. Lungs : Equal chest rise bilaterally, no use of accessory muscles, trachea is midline. Cor : Rate and rhythm are normal. Abdomen : Soft, ND, mild epigastric tenderness, no g/r/m Extremities : No edema, no cyanosis or clubbing, dorsalis pedis pulses are present bilaterally, non-tender to palpation of calves. Upper extremities are normal bilaterally. Back : non-tender to palpation, no CVA tenderness. Neuro : CN II - XII intact, Upper and lower extremities have equal and full strength Data 09/24/22 07:02 09/24/22 07:02 A&P Assessment and plan (1) Nausea, vomiting, and diarrhea: (2) Colitis: (3) Gastroenteritis: Plan Clear liquids Agree with Zosyn Stool studies Conservative management for now Medical management per hospitalist No acute surgical intervention Thank you for this consultation Coding Level of Care Code Acute Code for [facility] Fwd Diagnoses Nausea, vomiting, and diarrhea R11.2; R19.7 Colitis K52.9 Gastroenteritis K52.9
[2022-09-24] MEDS: heparin 5,000 unit/mL INJ 1 mL 5000 UNIT SUBCUT (10:08)
[2022-09-24] MEDS: morphine 4 mg/mL SDV 1 mL 2 MG IVP ×2 (10:18→20:56)
--- NOTE | 2022-09-24 10:35 | PM.PN ---
Subjective Subjective: Patient is stating that she wants to eat regular diet however as per the surgeon recommendations she has been advanced to clear liquids which I would follow for now Vitals/I&O/Wt Last Vital Signs Temp 97.5 F L 09/24/22 07:57 Pulse 72 09/24/22 07:57 Resp 16 09/24/22 07:57 BP 124/74 09/24/22 07:57 Pulse Ox 97 09/24/22 07:57 O2 Del Method 09/24/22 07:57 09/23/22 09/24/22 09/24/22 22:59 06:59 14:59 Intake Total 1000 / 1000 1050 / 0 Balance 1000 / 1000 0 / 2049 Weight last 48 hrs Weight 72.575 kg Physical Exam Narrative: Patient is awake and alert Laying supine Abdomen soft Euvolemic No active distress Hemodynamically stable Currently on room air No active emesis Pleasant and cooperative Data 09/24/22 07:02 09/24/22 07:02 Micro: Microbiology 09/24/22 03:32 C.difficile Toxin B Gene (PCR) - Final Stool - Stool Aspirate A&P Assessment and plan (1) Gastroenteritis: (2) Colitis: (3) Nausea, vomiting, and diarrhea: (4) SBO (small bowel obstruction): (5) Positive hepatitis C antibody test: (6) Alcohol abuse: (7) Substance induced mood disorder: (8) Cannabis abuse: (9) Partner relational problem: (10) Methamphetamine use: (11) Major depressive disorder, recurrent severe without psychotic features: Plan Colitis Currently patient is tolerating clear liquid diet Hemodynamically stable Afebrile On Zosyn She had a bowel movement this morning She was asking if diet could be advanced, we will like to see how she is doing with clear liquid diet for now Multiple drug abuse, no active withdrawal symptoms or signs, hemodynamically stable Patient is not interested in seeking help for her addiction I did offer her my assistance Positive hepatitis C antibodies Significant PCR load Hypomagnesemia: Repleted Anticipating discharge by tomorrow if tolerating diet Full code Attestations Medical Necessity Statement*: Anticipate discharge by tomorrow Coding Level of Care Code 95442 Diagnoses Gastroenteritis K52.9 Colitis K52.9 Nausea, vomiting, and diarrhea R11.2; R19.7 SBO (small bowel obstruction) K56.609 Positive hepatitis C antibody test R76.8 Alcohol abuse F10.10 Substance induced mood disorder F19.94 Cannabis abuse F12.10 Partner relational problem Z63.0 Methamphetamine use F15.10 Major depressive disorder, recurrent severe without psychotic features F33.2
[2022-09-24] MEDS: magnesium oxide 400 mg tablet PO ×2 (10:49→17:42)
[2022-09-24] MEDS: sodium chloride 0.9% 1,000 ML 75 ML IV (12:19)
--- NOTE | 2022-09-24 20:03 | PC.NURSE ---
Report was taken from DEMIAN Yen over the phone. Bedside reporting was unable to be completed at this time due to previous nurse already having left.
--- NOTE | 2022-09-24 20:39 | PC.NURSE ---
Patient complained of pain, nurse informed patient that she would bring pain medication. Patient then pointed at IV pole and stated, Hey also when am I going to go off of these fucking fluids? This is getting stupid. I want to get up and take a shower. Patient was then unhooked from fluids in order to allow patient to take shower.
--- NOTE | 2022-09-24 21:16 | PC.NURSE ---
Patient is repeatedly stating that she wants to leave. Nurse informed patient that leaving would cause her to leave against medical advice and that it is not recommended. Dr Cancino was notified of the situation. Patient will be given paper to leave AMA if she decides to.
--- NOTE | 2022-09-24 21:17 | PC.NURSE ---
Previous IV in right AC was removed due to inability to flush and catheter coming out. New 20 gauge started in her right hand, marked and dated. IVP morphine was administered.
--- NOTE | 2022-09-24 23:23 | PC.NURSE ---
Patient refused protonix and heparin. Dr Cancino was notified.
[2022-09-25] VITALS: BP 123/67; PULSE 77; RESP 16; TEMP 36.7; O2SAT 99
--- NOTE | 2022-09-25 02:35 | PC.NURSE ---
Addendum entered by VANESSA England 09/25/22 02:39: Edit: I have been asking for Tylenol all day. (not morphine) Original Note: Patient complained of headache and requested something for pain. Nurse informed patient that there were no current orders for Tylenol, but offered morphine instead. Patient yelled at nurse, No, I don't want any fucking morphine. I have had a headache for hours now and the morphine hasn't done anything. I have been asking for fucking morphine all day. Nurse informed patient that nurse was unaware of ongoing requests during dayshift. Dr Cancino was contacted for Tylenol order, and orders were put in.
[2022-09-25] MEDS: acetaminophen 325 mg Tablet 650 MG PO ×2 (02:41→08:38)
--- NOTE | 2022-09-25 02:43 | PC.NURSE ---
Patient was given Tylenol. Patient also refused piperacillin and bag of fluids at this time. Dr Cancino was notified.
[2022-09-25 04:00] VITALS: BP 123/81; PULSE 82; RESP 17; TEMP 36.9; O2SAT 98
[2022-09-25 06:20] LABS: Basophils # 0.1 10^3/uL (0.0-0.1); Basophils % 0.8 %; Eosinophils # 0.5 10^3/uL (0.0-0.8); Eosinophils % 7.3 %; Hematocrit 39.3 % (37.0-47.0); Hemoglobin 13.4 g/dL (11.5-15.3); Lymphocytes % 26.9 %; Mean Corpuscular HGB Conc 34.1 g/dL (30.0-36.0); Mean Corpuscular Hemoglobin 30.4 pg (28.0-34.0); Mean Corpuscular Volume 89.1 fl (81-99); Mean Platelet Volume 8.8 fL (7.4-10.4); Monocytes # 0.6 10^3/uL (0.2-0.9); Monocytes % 7.9 %; Neutrophils # 4.16 10^3/uL (1.8-7.7); Neutrophils % 56.7 %; Nucleated Red Blood Cells % 0 %; Platelet Count 363 10^3/cmm (130-400); Red Blood Count 4.41 10^6/uL (4.1-5.3); Red Cell Distribution Width 12.6 % (12.1-15.1); White Blood Count 7.4 10^3/uL (4.0-10.0)
[2022-09-25 06:45] LABS: Anion Gap 11.9 (5-19); Blood Urea Nitrogen 4 mg/dL (6-20); Calcium 8.1 mg/dL (8.5-10.5); Carbon Dioxide 23 mmol/L (22-29); Chloride 106 mmol/L (98-107); Glomerular Filtration Rate 94.7 mL/min (90-130); Glucose 93 mg/dL (65-115); Osmolality Calculated 281 mOsm/kg (285-295); Potassium 3.9 mmol/L (3.5-5.1); Sodium 137 mmol/L (136-145)
[2022-09-25 08:00] VITALS: BP 100/59; PULSE 82; RESP 18; TEMP 36.8; O2SAT 96
[2022-09-25] MEDS: magnesium oxide 400 mg tablet PO (08:27)
[2022-09-25] MEDS: piperacillin-tazobactam 3.375 GM in sodium chloride 0.9% (plus) 50 ML IV (08:27)
--- NOTE | 2022-09-25 09:32 | PM.DCS ---
Discharge Providers Date of Admission: 09/23/22 21:50 Date of Discharge: September 25, 2022 Attending Provider at Admission: Shobha Lee MD Attending Provider at Discharge: Jair Mccann MD Primary Care Provider: Nitza Phoenix DO Diagnoses at Discharge Discharge Diagnosis (1) Gastroenteritis: Status: Acute (2) Colitis: Status: Acute (3) Nausea, vomiting, and diarrhea: Status: Acute (4) SBO (small bowel obstruction): Status: Acute (5) Positive hepatitis C antibody test: Status: Acute (6) Alcohol abuse: Status: Acute (7) Substance induced mood disorder: Status: Acute (8) Cannabis abuse: Status: Acute (9) Partner relational problem: Status: Acute (10) Methamphetamine use: Status: Acute (11) Major depressive disorder, recurrent severe without psychotic features: Status: Acute Reason for Visit Reason for Visit: N/V/D [facility] Hospital Course Hospital Course Clarissa Correa is a 37 year old female with past medical history of alcohol dependence, generalized anxiety disorder, hypertension, depression, perforated gastric ulcer requiring exploratory laparotomy 2012.,? Cholecystectomy, presented to the hospital today for abdominal pain. In the ER she was kept n.p.o. for partial small bowel obstruction, colitis, she was put on Zosyn, IV fluid hydration was started. Patient never vomited during hospitalization, she was tolerating her diet, she has been having bowel movement which are regular, no abdominal pain or emesis. She is eager to return home. Patient endorsing passing flatus. Patient does not want to seek our help for her addiction. C. difficile panel negative, lactoferrin positive, she will get ciprofloxacin and Flagyl 5 day course Physical Exam Narrative: Abdomen soft Euvolemic Acne on her face Awake and alert Nonfocal neuro exam GCS 15 Hydrated Discharge Data Studies Completed and Pending Completed Studies During Hospitalization Category Date Time Status CT abdomen pelvis w con* [id number] Stat Cat Scan 09/23/22 18:58 Completed XR chest 1V portable [id number] Stat Exams 09/23/22 18:58 Completed Pending at discharge Category Date Time Status Clostridioides Difficile PCR Routine Lab 09/24/22 03:32 Results Enteric Bacterial Panel by PCR Routine Lab 09/24/22 03:32 Results Enteric Parasite Panel by PCR Routine Lab 09/24/22 03:32 Results Immunochemical Fecal OCB Routine Lab 09/24/22 03:32 Results Lactoferrin Routine Lab 09/24/22 03:32 Results Rota Virus AG Stool Routine Lab 09/24/22 08:23 Uncollected Radiology Impressions Abdomen/Pelvis CT 09/23/22 18:58 IMPRESSION: 1. Several borderline dilated small bowel loops with fluid measuring up to 3 cm suggestive of an obstruction, potentially low-grade. 2. Prominent fluid in colon suggestive of a colitis. 3. Small amount of nonspecific fluid in the pelvis. 4. Left ovary 16 mm peripherally enhancing cyst suggestive of a partially collapsed follicle. 5. Small umbilical hernia containing omentum without bowel. 6. Possible medullary nephrocalcinosis again seen. 7. Right hepatic lobe cyst. 8. Bilateral renal cysts, negative for follow up. 9. Hepatic steatosis. COMMENTS: Consistent with the [employer]'s Incidental Findings Committee white paper (J Am Estuardo Radiol 2018): Any incidental renal lesion less than 1 cm or classified as too small to characterize, or any incidental cystic renal lesion characterized as simple-appearing, is likely benign. No follow-up imaging is recommended for these lesions per consensus recommendations based on imaging criteria. Chest X-Ray 09/23/22 18:58 IMPRESSION: No acute findings. Laboratory Results WBC 7.4 10^3/uL (4.0-10.0) 09/25/22 05:50 RBC 4.41 10^6/uL (4.1-5.3) 09/25/22 05:50 Hgb 13.4 g/dL (11.5-15.3) 09/25/22 05:50 Hct 39.3 % (37.0-47.0) 09/25/22 05:50 MCV 89.1 fl (81-99) 09/25/22 05:50 MCH 30.4 pg (28.0-34.0) 09/25/22 05:50 MCHC 34.1 g/dL (30.0-36.0) D 09/25/22 05:50 RDW 12.6 % (12.1-15.1) 09/25/22 05:50 Plt Count 363 10^3/cmm (130-400) 09/25/22 05:50 MPV 8.8 fL (7.4-10.4) 09/25/22 05:50 Neut % (Auto) 56.7 % 09/25/22 05:50 Lymph % (Auto) 26.9 % 09/25/22 05:50 Clay % (Auto) 7.9 % 09/25/22 05:50 Eos % (Auto) 7.3 % 09/25/22 05:50 Baso % (Auto) 0.8 % 09/25/22 05:50 Neut # (Auto) 4.16 10^3/uL (1.8-7.7) 09/25/22 05:50 Lymph # (Auto) 2.0 10^3/uL (0.8-4.8) 09/25/22 05:50 Clay # (Auto) 0.6 10^3/uL (0.2-0.9) 09/25/22 05:50 Eos # (Auto) 0.5 10^3/uL (0.0-0.8) 09/25/22 05:50 Baso # (Auto) 0.1 10^3/uL (0.0-0.1) 09/25/22 05:50 Nucleated RBC % (auto) 0 % 09/25/22 05:50 Nucleated RBCs # 0.0 /100WBC 09/25/22 05:50 Sodium 137 mmol/L (136-145) 09/25/22 05:50 Potassium 3.9 mmol/L (3.5-5.1) 09/25/22 05:50 Chloride 106 mmol/L (98-107) 09/25/22 05:50 Carbon Dioxide 23 mmol/L (22-29) 09/25/22 05:50 Anion Gap 11.9 (5-19) 09/25/22 05:50 BUN 4 mg/dL (6-20) L 09/25/22 05:50 Creatinine 0.7 mg/dL (0.5-0.9) 09/25/22 05:50 GFR Calculation 94.7 mL/min (90-130) 09/25/22 05:50 Glucose 93 mg/dL (65-115) 09/25/22 05:50 Calculated Osmolality 281 mOsm/kg (285-295) L 09/25/22 05:50 Lactic Acid 1.4 mmol/L (0.5-2.2) 09/23/22 22:37 Calcium 8.1 mg/dL (8.5-10.5) L 09/25/22 05:50 Magnesium 1.6 mg/dL (1.7-2.3) L 09/24/22 07:02 Total Bilirubin 0.3 mg/dL (0.15-1.2) 09/23/22 19:59 AST 21 U/L (0-32) 09/23/22 19:59 ALT 78 U/L (0-33) H 09/23/22 19:59 Alkaline Phosphatase 89 U/L (35-105) 09/23/22 19:59 Total Protein 6.5 g/dL (6.6-8.7) L 09/23/22 19:59 Albumin 3.3 g/dL (3.5-5.2) L 09/23/22 19:59 Globulin 3.2 g/dL (1.3-4.6) 09/23/22 19:59 Lipase 36 U/L (13-60) 09/23/22 19:59 TSH 0.79 uIU/mL (0.27-4.20) 09/23/22 22:37 HCG, Qual Negative (Negative) 09/23/22 19:08 Urine Color Yellow (Yellow) 09/23/22 19:08 Urine Appearance Hazy (CLEAR) A 09/23/22 19:08 Urine pH 6 (5-7) 09/23/22 19:08 Ur Specific [place] 1.010 (1.005-1.030) 09/23/22 19:08 Urine Protein Neg (Negative) 09/23/22 19:08 Urine Glucose (UA) Norm (Normal) 09/23/22 19:08 Urine Ketones Negative (Negative) 09/23/22 19:08 Urine Blood Neg (Negative) 09/23/22 19:08 Urine Nitrate Negative (Negative) 09/23/22 19:08 Urine Bilirubin Neg (Negative) 09/23/22 19:08 Urine Urobilinogen Neg mg/dL (Negative) 09/23/22 19:08 Ur Leukocyte Esterase 2+ (Negative) H 09/23/22 19:08 Urine RBC None /hpf (0-2) 09/23/22 19:08 Urine WBC 5-10 /hpf (0-5) H 09/23/22 19:08 Ur Squamous Epith Cells 25-40 /hpf (0-5) H 09/23/22 19:08 Calcium Oxalate Crystal 15-25 /hpf H 09/23/22 19:08 Amorphous Sediment 1+ /hpf 09/23/22 19:08 Urine Bacteria Trace /hpf (NONE) 09/23/22 19:08 Urine Mucus 1+ /hpf 09/23/22 19:08 Urine Opiates Screen Negative ng/mL (Negative) 09/23/22 19:08 Ur Barbiturates Screen Negative ng/mL (Negative) 09/23/22 19:08 Ur Phencyclidine Scrn Negative ng/mL (Negative) 09/23/22 19:08 Ur Amphetamines Screen Positive ng/mL (Negative) H 09/23/22 19:08 U Benzodiazepines Scrn Positive ng/mL (Negative) H 09/23/22 19:08 Urine Cocaine Screen Negative ng/mL (Negative) 09/23/22 19:08 U Marijuana (THC) Screen Negative ng/mL (Negative) 09/23/22 19:08 Vitals Last Vital Signs Temp 98.2 F 09/25/22 08:00 Pulse 82 09/25/22 08:00 Resp 18 09/25/22 08:00 BP 100/59 09/25/22 08:00 Pulse Ox 96 09/25/22 08:00 O2 Del Method 09/25/22 08:00 Discharge Plan Discharge Patient Disposition: Home Condition: Stable Prescriptions: New ciprofloxacin HCl 500 mg tablet 500 mg PO BID Qty: 10 0RF metronidazole 500 mg tablet 500 mg PO Q8H 5 Days Qty: 15 0RF Continued aripiprazole 10 mg Tablet 10 mg PO DAILY bupropion HCl 150 mg Tablet Extended Release 24 Hr 450 mg PO QAM alprazolam 0.25 mg tablet 0.25 mg PO BID PRN (Reason: Anxiety) Discharge Orders: Discharge Order (Routine); Ordered 09/25/22 Ordered By: Jair Mccann Referrals: Nitza Phoenix DO [Primary Care Provider] - 4-7 days (Dr. Phoenix's office will call to schedule appointment.) Patient Instructions: Ciprofloxacin (By mouth), Metronidazole (By mouth), Bowel Obstruction (ED), Colitis (ED) Discharge Attestations Time Spent in Discharge Care*: less than 30 min Status at Discharge: Cognitive status at discharge: cognitively intact, Behavioral status at discharge: cooperative, Quality Metrics Clinical Quality Measures [ No reported AMI, CVA or VTE this stay] Coding Level of Care Code Acute Code for Chg Fwd Diagnoses Gastroenteritis K52.9 Colitis K52.9 Nausea, vomiting, and diarrhea R11.2; R19.7 SBO (small bowel obstruction) K56.609 Positive hepatitis C antibody test R76.8 Alcohol abuse F10.10 Substance induced mood disorder F19.94 Cannabis abuse F12.10 Partner relational problem Z63.0 Methamphetamine use F15.10 Major depressive disorder, recurrent severe without psychotic features F33.2
[2022-09-25 10:33] VITALS: BP 100/59; PULSE 82; RESP 18; TEMP 36.8; O2SAT 96
== END 2022-09-25 10:35 | disposition home or self-care (01) | DRG 389 ==
LOC: ER 21:16 → ER IP 22:09 → MEDSURG 09-24 02:58
PROVIDERS: Admitting Provider Internal Medicine; Emergency Provider Emergency Medicine; PCP Family Medicine; Visit Provider Internal Medicine
DX: K56.600 Partial intestinal obstruction, unspecified as to cause (principal); F33.2 Major depressive disorder, recurrent severe without psychotic features; K52.9 Noninfective gastroenteritis and colitis, unspecified; E86.0 Dehydration; F41.1 Generalized anxiety disorder; E83.42 Hypomagnesemia; R11.2 Nausea with vomiting, unspecified; K76.0 Fatty (change of) liver, not elsewhere classified; R76.8 Other specified abnormal immunological findings in serum; F15.90 Other stimulant use, unspecified, uncomplicated; F12.10 Cannabis abuse, uncomplicated; F10.10 Alcohol abuse, uncomplicated; F19.94 Other psychoactive substance use, unspecified with psychoactive substance-induced mood disorder; Z90.49 Acquired absence of other specified parts of digestive tract; Z87.11 Personal history of peptic ulcer disease; Z63.0 Problems in relationship with spouse or partner
CPT/HCPCS: 36415; 71045; 74177; 80048; 80053; 80306; 81001; 81025; 82274; 83605; 83630; 83690; 83735; 84443; 85025; 87493; 87506; 96372; 96374; 96375; 96376; 99285; C9113; J1644; J2270; J2405; J2543; J7030; Q9967

== ENCOUNTER 2022-10-09 00:42 | Emergency (ER) | payer MEDICAID, SELFPAY ==
[2022-10-09 00:52] VITALS: BP 156/105; PULSE 110; RESP 20; TEMP 36.8; O2SAT 96; BMI 31.1
--- NOTE | 2022-10-09 02:38 | W.ED.SKABFB ---
HPI - Skin/Abscess/Foreign Bdy General: Chief complaint: Skin/Abscess/Foreign Body Stated complaint: left arm swelling Time Seen by Provider: 10/09/22 01:31 History of Present Illness: Patient is a 37-year-old female comes to the ED with left arm swelling and pain. Patient admits to being an IV meth user and says 2 days ago she was shooting up right AC of left elbow. Over the past 2 days she started developing some erythema, swelling, warmth and pain in that area. Denies any fever, chills, nausea/vomiting. Associated symptoms: Deny chills, fever(s), nausea or vomiting Review of Systems Const: Denies: fever(s), chills or fatigue Eyes: Denies: change in vision or eye discomfort ENMT: Denies: throat pain, odynophagia, nasal discharge or nasal congestion Card: Denies: chest pain, palpitations, edema, swelling of feet/ankles, dyspnea on exertion or orthopnea Resp: Denies: dyspnea, productive cough or non-productive cough GI: Denies: abdominal pain, nausea, vomiting, diarrhea, constipation or hematochezia : Denies: flank pain, dysuria or hematuria Musc: Denies: neck pain, back pain or extremity swelling Skin/Breast: Reports: new lesions (Erythema, warmth, tenderness and swelling left elbow AC area); Denies: rash Neuro: Denies: headache(s), numbness in extremities or weakness in extremities ON LICENSE OF [facility] ED PFSH: Medical History Alcohol abuse Alcohol dependence, uncomplicated Bartholin's gland abscess (~2018) Cannabis abuse Colitis Dehydration Gastroenteritis Generalized anxiety disorder Hypertension Major depressive disorder, recurrent severe without psychotic features Methamphetamine use Nausea, vomiting, and diarrhea Opioid dependence, uncomplicated Other stimulant dependence, uncomplicated Partner relational problem Patient denies medical problems Denies diabetes, asthma, seizures, DVT/PE Positive hepatitis C antibody test Psychiatric care SBO (small bowel obstruction) Substance induced mood disorder Surgical History History of delivery (~06/06/13) delivery at [place] for placental abruption History of cholecystectomy (~2012) Done at time of exploratory laparoscopy for ruptured gastric ulcer in History of exploratory laparotomy (~2012) Done for ruptured gastric ulcer - also had a cholecystectomy at the same time Family History Grandfather Diabetes Paternal Mother Hypertension Heart disease Unknown No problems noted. Family/Other Uterine cancer Maternal Aunt---dx age 30's Denies family history of Colon cancer Ovarian cancer Hypercholesteremia Breast cancer Stroke Female Reproductive History: Para: 3 Spontaneous abortions: No Physical Exam Const: COMMON NORMALS: no acute distress, patient oriented x3 and alert GENERAL APPEARANCE: cooperative and comfortable HENMT: COMMON NORMALS: normocephalic HEAD & SCALP: normocephalic MOUTH: Normal oral and palatal mucosa present THROAT: posterior oropharynx normal and uvula midline Neck/C-Spine: COMMON NORMALS: supple GENERAL: Yes normal visual inspection Resp: COMMON NORMALS: normal respiratory effort, No retractions, No use of accessory muscles and clear to auscultation bilaterally AUSCULTATION: clear to auscultation bilaterally Cardio: COMMON NORMALS: regular rate, regular rhythm, S1 normal heart sound present, S2 normal heart sound present, No gallops present (Cardio), No clicks present (Cardio), No murmurs present (Cardio) and Peripheral pulses 2+ throughout RATE: regular rate RHYTHM: regular rhythm HEART SOUNDS: S1 normal heart sound present and S2 normal heart sound present PERIPHERAL PULSES: Peripheral pulses 2+ throughout GI: COMMON NORMALS: Normal to inspection, nondistended, normoactive bowel sounds present, Soft to palpation, non-tender and no masses PALPATION: Yes Soft to palpation : COMMON NORMALS: Yes no CVA tenderness BLADDER/KIDNEY EXAM: Yes no CVA tenderness Back/Pelvis: COMMON NORMALS: no CVA tenderness Extremity: NARRATIVE EXTREMITY EXAM: Left arm AC area?skin swelling, erythema, warmth and tenderness that is localized. No red streaking seen. No palpable abscess noted. Findings suggestive of developing cellulitis. Neuro: COMMON NORMALS: patient oriented x3 SENSORIUM/ORIENTATION: Yes alert GAIT: Yes Normal gait present Skin: GENERAL SKIN EXAM: dry skin Course Vital Signs: Vital signs: Vital Signs Temperature 98.3 F 10/09/22 00:52 Pulse Rate 96 10/09/22 02:43 Respiratory Rate 16 10/09/22 02:43 Blood Pressure 151/115 10/09/22 02:43 Pulse Oximetry 100 10/09/22 02:43 Oxygen Delivery Me thod 10/09/22 00:52 MDM - Skin/Abscess/Foreign Bdy Medicial Decision Making Patient is a 37-year-old female comes to the ED with left arm swelling and pain. Patient is an IV meth drug user and says 2 days ago she shot up in left arm and over the past 2 days she developed pain, swelling, warmth and redness around AC area of the left arm. Denies any fevers or any other symptoms. Vitals are stable. Exam?Left arm AC area?skin swelling, erythema, warmth and tenderness that is localized. No red streaking seen. No palpable abscess noted. Findings suggestive of developing cellulitis. Patient was given a dose of clindamycin here in the ED. She was stable for discharge home and given strict return to ED precautions if symptoms worsen or if she develops an abscess. Follow-up with provider in the next 3 to 5 days otherwise for reevaluation. Patient understood and agreed with plan. Discharge Plan Discharge Patient Disposition: Home Clinical Impression: Cellulitis of left arm Condition: Stable Prescriptions: New clindamycin HCl 150 mg capsule 300 mg PO QID 10 Days Qty: 80 0RF No Action aripiprazole 10 mg Tablet 10 mg PO DAILY bupropion HCl 150 mg Tablet Extended Release 24 Hr 450 mg PO QAM alprazolam 0.25 mg tablet 0.25 mg PO BID PRN (Reason: Anxiety) ciprofloxacin HCl 500 mg tablet 500 mg PO BID Qty: 10 0RF Discharge Orders: Discharge ED (Routine); Ordered 10/09/22 Ordered By: Hebert Kang Referrals: Nitza Phoenix DO [Primary Care Provider] - Discharge Diet: Regular Discharge Activity: Resume usual activity Activity Restrictions/Additional Instructions: Follow-up with medical provider as directed in the next 3 to 5 days for reevaluation even if symptoms are improving.. If symptoms worsen or abscess develops after 48 hours of being on antibiotic return to ED as soon as possible for reevaluation and possible abscess incision and drainage performed. Take medications as prescribed. Take [id number] Tylenol or ibuprofen for pain. Please read and understand discharge instructions. Thank you for choosing [facility] for your healthcare needs today. Please realize this is an emergency room and that we are providing you with a medical screening exam and this may not be complete and all inclusive of all the testing and or work up that you may need to determine your ailment or severity of your illness. It is very important that you follow up as instructed or that you return to the Emergency Department should you have concerns or if your condition changes or worsens in any way. Coding Level of Care Code ED Maintenance Technician 2Nd Shift for Fawn Mendoza
[2022-10-09 02:43] VITALS: BP 151/115; PULSE 96; RESP 16; O2SAT 100
[2022-10-09] MEDS: clindamycin 150 mg Capsule 300 MG PO (02:49)
[2022-10-09 03:05] VITALS: BP 159/110; PULSE 91; O2SAT 99
== END 2022-10-09 03:00 | disposition home or self-care (01) ==
PROVIDERS: Emergency Provider Physician Assistant; PCP Family Medicine
DX: L03.114 Cellulitis of left upper limb (principal); I10 Essential (primary) hypertension
CPT/HCPCS: 99283